=== PATIENT | male | born 1955 | race Caucasian/White ===

== ENCOUNTER 2017-07-15 17:24 | Inpatient (IN) | payer OTHER ==
[~2017-07-15] VITALS: Ht 172.7 cm; Wt 70.1 kg
[2017-07-15 17:30] VITALS: O2SAT 98
[2017-07-15 17:33] VITALS: BP 97/57; PULSE 129; RESP 22; TEMP 101.7; O2SAT 98
[2017-07-15] MEDS ORDERED: SODIUM CHLOR 0.9% 1000 ML INJ 1,000 ML IV ONE ×5 (17:35→20:21)
--- NOTE | 2017-07-15 17:51 | RADRPT ---
EXAM DATE/TIME: 07/15/2017 17:36 [facility] COMPARISON: No previous studies available for comparison. INDICATIONS : Stroke alert; trouble with speech. RADIATION DOSE: 56.35 CTDIvol (mGy) This report was called by Dr. Mccain to Dr. Garcia at 5: 47 PM on 07/15/17. MEDICAL HISTORY : None SURGICAL HISTORY : None. ENCOUNTER: Initial ACUITY: 1 day PAIN SCALE: 0/10 LOCATION: cranial TECHNIQUE: Multiple contiguous axial images were obtained of the head. Using automated exposure control and adj ustment of the mA and/or kV according to patient size, radiation dose was kept as low as reasonably a chievable to obtain optimal diagnostic quality images. DICOM format image data is available electro nically for review and comparison. FINDINGS: CEREBRUM: The ventricles are normal for age. No evidence of midline shift, mass lesion, hemorrhage or acute in farction. No extra-axial fluid collections are seen. Old lacunar infarcts are noted within the bilat eral basal ganglia. POSTERIOR FOSSA: The cerebellum and brainstem are intact. The 4th ventricle is midline. The cerebellopontine angle i s unremarkable. EXTRACRANIAL: The visualized portion of the orbits is intact. SKULL: The calvaria is intact. No evidence of skull fracture. CONCLUSION: 1. 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 2. No acute hemorrhage, acute infarct, mass effect or extra axial fluid collections. Arron Mccain MD on July 15, 2017 at 17:45 Board Certified Radiologist. This report was verified electronically.
[2017-07-15 17:57] LABS: AUTOMATED NEUTROPHIL # 13.7 TH/MM3 (1.8-7.7); BASOPHIL % 0.1 % (0.0-2.0); EOSINOPHIL # 0.1 TH/MM3 (0-0.4); EOSINOPHIL % 0.5 % (0.0-4.0); HEMATOCRIT 26.1 % (39.0-51.0); HEMO FLAGS DIFF FINAL; LYMPH % 2.3 % (9.0-44.0); LYMPHOCYTE # 0.4 TH/MM3 (1.0-4.8); MEAN CELL VOLUME 90.1 FL (80.0-100.0); MEAN CORPUSCULAR HEMOGLOBIN 28.6 PG (27.0-34.0); MEAN CORPUSCULAR HGB CONC 31.8 % (32.0-36.0); MONO % 7.1 % (0.0-8.0); PLATELET COUNT 357 TH/MM3 (150-450); RED CELL DISTRIBUTION WIDTH 18.7 % (11.6-17.2); WHITE BLOOD COUNT 15.2 TH/MM3 (4.0-11.0)
[2017-07-15] MEDS ORDERED: AMPICILLIN INJ 2,000 MG in SODIUM CHLORIDE 0.9% INJ 100 ML IV STA (18:00)
[2017-07-15] MEDS ORDERED: cefTAZidime INJ 2,000 MG in SODIUM CHLORIDE 0.9% INJ 100 ML IV STA (18:00)
[2017-07-15 18:05] LABS: I-STAT SODIUM 135 MMOL/L (138-146)
[2017-07-15 18:07] VITALS: BP 101/57; PULSE 127; RESP 20; TEMP 101.5; O2SAT 100
[2017-07-15 18:13] LABS: ANION GAP 12 MEQ/L (5-15); AST (GOT) 15 U/L (15-37); BICARBONATE 21.2 MEQ/L (21.0-32.0); BLOOD UREA NITROGEN 41 MG/DL (7-18); CHLORIDE 98 MEQ/L (98-107); GLOMERULAR FILTRATION RATE 17 ML/MIN (>89); POTASSIUM 3.9 MEQ/L (3.5-5.1); SODIUM (NA) 131 MEQ/L (136-145)
[2017-07-15 18:14] LABS: ALT (GPT) 14 U/L (12-78)
[2017-07-15 18:16] LABS: APTT (PATIENT) 33.9 SEC (24.3-30.1); INTERNATIONAL NORMALIZED RATIO 1.1 RATIO; PROTHROMBIN TIME - PATIENT 12.3 SEC (9.8-11.6)
[2017-07-15 18:18] LABS: ALKALINE PHOSPHATASE 90 U/L (45-117); CREATINE KINASE 133 U/L (39-308); TOTAL BILIRUBIN ADULT 0.6 MG/DL (0.2-1.0)
[2017-07-15] MEDS ORDERED: LORA-373 PO (18:25)
[2017-07-15] MEDS ORDERED: ETOD400T PO (18:25)
[2017-07-15] MEDS ORDERED: TAMS5CAP PO (18:25)
[2017-07-15] MEDS ORDERED: LISI10TA3 PO (18:25)
[2017-07-15] MEDS ORDERED: LOMO2.5T PO (18:25)
[2017-07-15] MEDS ORDERED: METH2.5T PO (18:25)
[2017-07-15] MEDS ORDERED: TRAM50TA PO (18:25)
[2017-07-15] MEDS ORDERED: ACETAMINOPHEN 650 MG SUPP RECTAL ONE (18:30)
[2017-07-15] MEDS ORDERED: ACYCLOVIR INJ 1,000 MG in SODIUM CHLORIDE 0.9% INJ 150 ML IV ONE (19:00)
[2017-07-15] MEDS ORDERED: VANCOMYCIN INJ 2,250 MG in SODIUM CHLORID 0.9% 500 ML INJ 500 ML IV ONE (19:00)
[2017-07-15 19:07] LABS: BACTERIA, URINE MANY /hpf; BLOOD, URINE MOD (NEG); COMMENT (UR) CULTURE INDICATED; CULTURE IF INDICATED CULTURE INDICATED; GLUCOSE,URINE NEG (NEG); KETONE, URINE NEG (NEG); MUCUS URINE FEW /lpf (OCC); NITRITE,URINE NEG (NEG); PH, URINE 5.5 (5.0-8.5); SQUAMOUS EPITHELIAL CELL URINE 3 /hpf (0-5); URINE COLOR YELLOW (YELLW/STRAW)
--- NOTE | 2017-07-15 19:31 | PD ---
HPI Chief Complaint: Altered Mental Status Time Seen by Provider: 17:34 Travel History International Travel<30 days: No Contact w/Intl Traveler<30days: No Traveled to known affect area: No History of Present Illness HPI 61-year-old man, presents emergent from with acute onset of altered mental status. Patient's mom called EMS and the patient was found sitting in the hallway, confused, unaware was going on. She states that he is visiting from out of town. He got here around noon. She states he acted a little bit tired otherwise well. She then noted that he was overtly confused about an hour or 2 later. EMS states that he is completely nonverbal for them in the truck. He had abnormal movements. No clear seizures. Patient was febrile. History Past Medical History Narrative Medical Arthritis, on methotrexate BPH, hypertension Social History Tobacco Use: No Allergies-Medications (Allergen,Severity, Reaction): Coded Allergies: No Known Allergies (Verified Allergy, Unknown, 07/15/17) Unable to Assess (Verified Allergy, Unknown, 07/15/17) Reported Meds & Prescriptions Reported Meds & Active Scripts Active Reported Lorazepam 0.5 Mg Tab 0.5 Mg PO DAILY PRN Tramadol (Tramadol HCl) 50 Mg Tab 50 Mg PO Q4H PRN Etodolac 400 Mg Tab 400 Mg PO BID PRN Take with food. Methotrexate 2.5 Mg Tab 2.5 Mg PO DAILY Lomotil (Diphenoxylate-Atropine) 2.5-0.025 Mg Tab 1 Tab PO Q6H PRN Lisinopril 10 Mg Tab 10 Mg PO DAILY Flomax (Tamsulosin HCl) 0.4 Mg Cap 0.4 Mg PO HS Review of Systems Except as stated in HPI: all other systems reviewed are Neg Physical Exam Narrative GENERAL: Ill-appearing 61-year-old man, ill-appearing. SKIN: Focused skin assessment warm/dry. HEAD: Atraumatic. Normocephalic. EYES: Pupils equal and round. No scleral icterus. No injection or drainage. ENT: No nasal bleeding or discharge. Mucous membranes pink and moist. NECK: No obvious meningismus. CARDIOVASCULAR: Rapid rate and rhythm. Soft systolic murmur. RESPIRATORY: No accessory muscle use. Clear to auscultation. Breath sounds equal bilaterally. GASTROINTESTINAL: Abdomen soft, non-tender, nondistended. Hepatic and splenic margins not palpable. MUSCULOSKELETAL: No edema. No rash. NEUROLOGICAL: Eyes open, decreased alertness, increased tone throughout. Unable to speak in complete sentences or answer questions appropriately. PSYCHIATRIC: Appropriate mood and affect; insight and judgment normal. Data Data Last Documented VS Vital Signs Date Time Temp Pulse Resp B/P (MAP) Pulse Ox O2 Delivery O2 Flow Rate FiO2 07/15/17 18:07 101.5 127 20 101/57 (72) 100 Nasal Cannula 2.00 Orders Orders Diet Npo (07/15/17 Dinner) Activity Bed Rest (07/15/17 ) Electrocardiogram (07/15/17 ) I-Stat Creatinine (07/15/17 17:35) I-Stat Profile (07/15/17 17:35) Prothrombin Time / Inr (Pt) (07/15/17 17:35) Act Partial Throm Time (Ptt) (07/15/17 17:35) Complete Blood Count With Diff (07/15/17 17:35) Fibrinogen (07/15/17 17:35) Creatine Kinase (Cpk) (07/15/17 17:35) Troponin I (07/15/17 17:35) Drug Screen, Random Urine (07/15/17 17:35) Type And Screen (07/15/17 17:35) Ct Brain W/O Iv Contrast(Rout) (07/15/17 ) Blood Glucose (07/15/17 17:35) Ecg Monitoring (07/15/17 17:35) Neuro Checks Q2HX12,Q4H (07/15/17 17:35) Nursing Bedside Swallow Assess .ONCE (07/15/17 17:35) Iv Access Insert/Monitor (07/15/17 17:35) NPO (07/15/17 17:35) Oximetry (07/15/17 17:35) Oxygen Administration (07/15/17 17:35) Sodium Chlor 0.9% 1000 Ml Inj (Ns 1000 M (07/15/17 17:35) Resp Oxygen Bo C Titrat 1-4 L (07/15/17 17:35) Cath For Specimen (07/15/17 17:35) Comprehensive Metabolic Panel (07/15/17 17:35) Lactic Acid Sepsis Protocol (07/15/17 17:35) Phosphorus (Po4) (07/15/17 17:35) Urinalysis - C+S If Indicated (07/15/17 17:35) Blood Culture (07/15/17 17:35) Sodium Chlor 0.9% 1000 Ml Inj (Ns 1000 M (07/15/17 17:45) Sodium Chlor 0.9% 1000 Ml Inj (Ns 1000 M (07/15/17 17:45) Insert Temp Sensing Crocker Cath (07/15/17 18:00) Hiv Antibody Screen (07/15/17 18:00) Vancomycin Inj (Vancomycin Inj) (07/15/17 19:00) Ampicillin Inj (Ampicillin Inj) (07/15/17 18:00) Ceftazidime Inj (Fortaz Inj) (07/15/17 18:00) Acyclovir Inj (Zovirax Inj) (07/15/17 19:00) Csf Cell Count + Differential (07/15/17 18:05) Glucose, Csf (07/15/17 18:05) Total Protein, Csf (07/15/17 18:05) Bacterial Antigen Csf (07/15/17 18:05) Csf Cryptococcus Antigen (07/15/17 18:05) Csf Culture And Gram Stain (07/15/17 18:05) Csf Afb Culture And Stain (07/15/17 18:05) Csf Fungus Culture And Stain (07/15/17 18:05) Hsv Dna Pcr (07/15/17 18:05) Acetaminophen Supp (Tylenol Supp) (07/15/17 18:30) Chest, Pa & Lat (07/15/17 ) Urine Culture (07/15/17 17:50) Labs Laboratory Tests Test 07/15/17 17:36 07/15/17 17:50 07/15/17 18:10 07/15/17 18:45 White Blood Count 15.2 TH/MM3 Red Blood Count 2.90 MIL/MM3 Hemoglobin 8.3 GM/DL Bedside Hemoglobin 9.5 G/DL Hematocrit 26.1 % Bedside Hematocrit 28.0 % Mean Corpuscular Volume 90.1 FL Mean Corpuscular Hemoglobin 28.6 PG Mean Corpuscular Hemoglobin Concent 31.8 % Red Cell Distribution Width 18.7 % Platelet Count 357 TH/MM3 Mean Platelet Volume 8.1 FL Neutrophils (%) (Auto) 90.0 % Lymphocytes (%) (Auto) 2.3 % Monocytes (%) (Auto) 7.1 % Eosinophils (%) (Auto) 0.5 % Basophils (%) (Auto) 0.1 % Neutrophils # (Auto) 13.7 TH/MM3 Lymphocytes # (Auto) 0.4 TH/MM3 Monocytes # (Auto) 1.1 TH/MM3 Eosinophils # (Auto) 0.1 TH/MM3 Basophils # (Auto) 0.0 TH/MM3 CBC Comment DIFF FINAL Differential Comment Prothrombin Time 12.3 SEC Prothromb Time International Ratio 1.1 RATIO Activated Partial Thromboplast Time 33.9 SEC Fibrinogen 849 mg/dL Bedside Sodium 135 MMOL/L Blood Urea Nitrogen 41 MG/DL Creatinine 3.73 MG/DL Random Glucose 135 MG/DL Total Protein 7.1 GM/DL Albumin 2.3 GM/DL Calcium Level 7.9 MG/DL Phosphorus Level 2.0 MG/DL Alkaline Phosphatase 90 U/L Aspartate Amino Transf (AST/SGOT) 15 U/L Alanine Aminotransferase (ALT/SGPT) 14 U/L Total Bilirubin 0.6 MG/DL Sodium Level 131 MEQ/L Potassium Level 3.9 MEQ/L Chloride Level 98 MEQ/L Carbon Dioxide Level 21.2 MEQ/L Bedside Potassium 4.0 MMOL/L Bedside Chloride 100 MMOL/L Anion Gap 12 MEQ/L Bedside Blood Urea Nitrogen 39 MG/DL Bedside Creatinine 3.9 MG/DL Estimat Glomerular Filtration Rate 17 ML/MIN Bedside Glucose 141 MG/DL Lactic Acid Level 1.6 mmol/L Total Creatine Kinase 133 U/L Troponin I LESS THAN 0.02 NG/ML Urine Color YELLOW Urine Turbidity CLOUDY Urine pH 5.5 Urine Specific [place] 1.023 Urine Protein 300 mg/dL Urine Glucose (UA) NEG mg/dL Urine Ketones NEG mg/dL Urine Occult Blood MOD Urine Nitrite NEG Urine Bilirubin NEG Urine Urobilinogen 2.0 MG/DL Urine Leukocyte Esterase LARGE Urine RBC 25 /hpf Urine WBC /hpf Urine WBC Clumps MANY Urine Squamous Epithelial Cells 3 /hpf Urine Bacteria MANY /hpf Urine Mucus FEW /lpf Microscopic Urinalysis Comment CULTURE INDICATED Urine Opiates Screen NEG Urine Barbiturates Screen NEG Urine Amphetamines Screen NEG Urine Benzodiazepines Screen NEG Urine Cocaine Screen NEG Urine Cannabinoids Screen NEG MDM Medical Decision Making Medical Screen Exam Complete: Yes Emergency Medical Condition: Yes Interpretation(s) LABS: CBC remarkable for moderate leukocytosis, hemoglobin 8.3, absolute lymphocyte count 0.4 CMP: Elevated BUN/creatinine 41/3.73, glucose 141 Lactate 1.6 Tropo urine drug screen negative hayde 0.02 CSF studies pending Differential Diagnosis Sepsis, UTI, meningitis, stroke, serotonin syndrome, other Narrative Course Medical decision making 58-year-old male with altered mental status, fever, increased muscular rigidity. Initial concern is for sepsis and infection. Patient states that he is ryder but his mother does not know. He mentions that HIV test in the past. He seems to be worried about HIV although is overtly confused. Patient will be treated for meningitis, encephalitis, LP was performed and blood cultures were sent. Patient was initially called as a stroke or days on the report of acute onset mental status changes. Stroke alert was canceled given the preponderance of evidence suggesting for an alternative etiology. Concern was also given for serotonin syndrome giving some increased muscular rigidity and tell with the confusion and fevers. We'll monitor. Critical Care Narrative Aggregate critical care time was 45 minutes. Time to perform other separately billable procedures was not included in the critical care time. My time did not include minutes spent treating any other patients simultaneously or on activities that did not directly contribute to the patient's treatment. The services I provided to this patient were to treat and/or prevent clinically significant deterioration that could result in: , disability, worsening mental status, unrecognized infection, other I provided critical care services requiring my management, as noted below: Chart data review, documentation time, medication orders and management, vital sign assessments/reviewing monitor data, ordering and reviewing lab tests, ordering and interpreting/reviewing x-rays and diagnostic studies, care of the patient and discussion of the patient with the admitting physicians. Procedures Procedure Narrative LUMBAR PUNCTURE: The patient was placed in the left lateral decubitus position. The lumbar area of the back was prepped with Betadine and sterilely draped. The L3 -- L4 interspace was infiltrated with 1% lidocaine plain. Number 20 gauge LP needle was placed in the interspace. Opening pressure was 29. Number 12 milliliters of clear CSF were obtained. Patient tolerated procedure well. Diagnosis Primary Impression: Severe sepsis Additional Impressions: UTI (urinary tract infection) Confusion Admitting Information Admitting Physician Requests: Admit Rolf Garcia MD Jul 15, 2017 19:31
--- NOTE | 2017-07-15 19:55 | RADRPT ---
EXAM DATE/TIME: 07/15/2017 19:34 [facility] COMPARISON: No previous studies available for comparison. INDICATIONS : Shortness of breath and fever. Stroke alert; trouble with speech. MEDICAL HISTORY : None. SURGICAL HISTORY : None. ENCOUNTER: Initial ACUITY: 1 day PAIN SCORE: 0/10 LOCATION: Bilateral chest FINDINGS: PA and lateral views of the chest demonstrate the lungs to be symmetrically aerated without evidence of mass, infiltrate or effusion. The cardiomediastinal contours are unremarkable. Osseous structure s are intact. CONCLUSION: No acute disease. Arron Mccain MD on July 15, 2017 at 19:53 Board Certified Radiologist. This report was verified electronically.
[2017-07-15 20:00] VITALS: BP 98/65; PULSE 108; RESP 16; TEMP 99.7; O2SAT 100
[2017-07-15] MEDS ORDERED: LORazepam 0.5 MG TAB PO PRN (20:15)
[2017-07-15] MEDS ORDERED: CHLORHEXIDINE GLUCONATE 2 % 1 PACK (2 CLOTHS) TOP PRN (20:15)
[2017-07-15] MEDS ORDERED: LACTULOSE SYRUP 20 GM/30 ML CUP PO PRN (20:15)
[2017-07-15] MEDS ORDERED: MAGNESIUM HYDROXIDE SUSP 30 ML CUP PO PRN (20:15)
[2017-07-15] MEDS ORDERED: RESP: ALBUTEROL 2.5 MG/IPRATROPIUM 0.5 MG NEB (PRN) INH (20:15)
[2017-07-15] MEDS ORDERED: SENNOSIDES 8.6 MG TAB PO PRN (20:15)
[2017-07-15] MEDS ORDERED: BISACODYL 10 MG SUPP RECTAL PRN (20:15)
[2017-07-15] MEDS ORDERED: MISCELLANEOUS NURSING INFORMATION XX SCH (20:15)
[2017-07-15] MEDS ORDERED: SODIUM CHLORIDE 0.9% FLUSH 10 ML FLUSH PRN (20:15)
[2017-07-15] MEDS ORDERED: SODIUM CHLOR 0.9% 1000 ML INJ 100 ML IV ONE (20:21)
[2017-07-15] MEDS ORDERED: Vancomycin Consult Pharmacy 1 EA OTHER SCH (20:30)
[2017-07-15] MEDS ORDERED: DEXAMETHASONE SOD PHOS 20 MG/5 ML VIAL IV SCH (20:30)
[2017-07-15 20:40] LABS: GROSS BLOOD TUBE #1 0 (0); GROSS BLOOD TUBE #2 0 (0); SUPERNATE COLOR TUBE #1 CLEAR (CLEAR); SUPERNATE COLOR TUBE #2 CLEAR (CLEAR)
[2017-07-15 20:41] LABS: CSF LYMPHOCYTES 0 %; CSF NEUTROPHILS 0 %; GROSS BLOOD TUBE #3 0 (0); SUPERNATE COLOR TUBE #3 CLEAR (CLEAR); SUPERNATE COLOR TUBE #4 CLEAR (CLEAR); WBC TUBE #4 0 /MM3 (0-10)
[2017-07-15] MEDS: SODIUM CHLOR 0.9% 1000 ML INJ 1,000 ML IV SCH (20:50)
[2017-07-15 21:00] VITALS: BP 102/60; PULSE 98; RESP 16; TEMP 98.2; O2SAT 100
[2017-07-15] MEDS: TAMSULOSIN HCL 0.4 MG CAP PO SCH (21:00)
[2017-07-15] MEDS: SODIUM CHLORIDE 0.9% FLUSH 10 ML FLUSH SCH (21:00)
[2017-07-15] MEDS: HEPARIN SODIUM - SQ 10,000 UNITS/ML VIAL SQ SCH (21:01)
[2017-07-15] MEDS ORDERED: VANCOMYCIN INJ 1,250 MG in SODIUM CHLOR 0.9% 250 ML INJ 250 ML IV ONE (21:30)
[2017-07-15] MEDS: AMPICILLIN INJ 2,000 MG in SODIUM CHLORIDE 0.9% INJ 100 ML IV SCH (22:07)
[2017-07-15] MEDS: FAMOTIDINE 20 MG/2 ML VIAL IV PUSH SCH (22:07)
[2017-07-15] MEDS: DOCUSATE SODIUM 50 MG/SENNA 8.6 MG TAB PO SCH (22:07)
--- NOTE | 2017-07-15 22:09 | HHI.HP ---
HPI Service Critical Care Medicine Primary Care Physician Unknown Admission Diagnosis Severe Sepsis, confusion, UTI, r/o meningitis Diagnosis: Travel History International Travel<30 Days: No Contact w/Intl Traveler <30 Da: No Traveled to Known Affected Are: No History of Present Illness 61-year-old gentleman presents for altered mental status. Patient's mom called EMS and the patient was found sitting in the hallway, confused, unaware what was going on. She states that he is visiting from out of town. He got here around noon. She states he acted a little bit tired otherwise well. She then noted that he was overtly confused about an hour or 2 later. EMS states that he is completely nonverbal for them in the truck. He had abnormal movements. No clear seizures. Patient was febrile. Past Family Social History Allergies: Coded Allergies: No Known Allergies (Verified Allergy, Unknown, 07/15/17) Unable to Assess (Verified Allergy, Unknown, 07/15/17) Past Medical History Arthritis - on methotrexate BPH Hypertension Past Surgical History None Reported Medications Reported Meds & Active Scripts Active Reported Lorazepam 0.5 Mg Tab 0.5 Mg PO DAILY PRN Tramadol (Tramadol HCl) 50 Mg Tab 50 Mg PO Q4H PRN Etodolac 400 Mg Tab 400 Mg PO BID PRN Take with food. Methotrexate 2.5 Mg Tab 2.5 Mg PO DAILY Lomotil (Diphenoxylate-Atropine) 2.5-0.025 Mg Tab 1 Tab PO Q6H PRN Lisinopril 10 Mg Tab 10 Mg PO DAILY Flomax (Tamsulosin HCl) 0.4 Mg Cap 0.4 Mg PO HS Active Ordered Medications Current Medications Medications (Trade) Dose Ordered Sig/Víctor Route PRN Reason Start Time Stop Time Status Last Admin Dose Admin Sodium Chloride 1,000 ml @ 70 mls/hr [id number] ONCE IV 07/15/17 17:35 07/16/17 07:52 07/15/17 19:55 Lorazepam (Ativan) 0.5 mg DAILY PRN PO ANXIETY 07/15/17 20:15 Tamsulosin HCl (Flomax) 0.4 mg HS PO 07/15/17 21:00 Sodium Chloride 1,000 ml @ 124 mls/hr Q8H4M IV 07/15/17 20:14 07/15/17 20:50 Sodium Chloride (NS Flush) 2 ml UNSCH PRN .XX FLUSH AFTER USING IV ACCESS 07/15/17 20:15 Sodium Chloride (NS Flush) 2 ml BID .XX 07/15/17 21:00 Acetaminophen (Tylenol) 650 mg Q6H PRN PO PAIN 1-10 AND/OR FEVER >101F 07/15/17 20:15 Famotidine (Pepcid Inj) 20 mg Q12HR IV PUSH 07/15/17 21:00 Ondansetron HCl (Zofran Inj) 4 mg Q6H PRN IV NAUSEA OR VOMITING 07/15/17 20:15 Zolpidem Tartrate (Ambien) 5 mg HS PRN PO INSOMNIA 07/15/17 20:15 Albuterol/ Ipratropium (Duoneb Neb) 1 ampule Q2HR NEB PRN INH WHEEZING 07/15/17 20:15 Heparin Sodium (Porcine) (Heparin Inj) 5,000 units Q12H SQ 07/15/17 20:15 07/15/17 21:01 Miscellaneous Information 1 [id number] XX 07/15/17 20:15 Chlorhexidine Gluconate (Chlorhexidine 2% Cloth) 3 pack Taper DAILY@04 TOP 07/16/17 04:00 07/12/18 03:59 Chlorhexidine Gluconate (Chlorhexidine 2% Cloth) 3 pack UNSCH PRN TOP HYGIENIC CARE 07/15/17 20:15 Senna/Docusate Sodium (Annetta-Colace) 1 tab BID PO 07/15/17 21:00 Magnesium Hydroxide (Milk Of Magnesia Liq) 30 ml Q12H PRN PO MILD - MODERATE CONSTIPATION 07/15/17 20:15 Sennosides (Senokot) 17.2 mg Q12H PRN PO MODERATE - SEVERE CONSTIPATION 07/15/17 20:15 Bisacodyl (Dulcolax Supp) 10 mg DAILY PRN RECTAL SEVERE CONSITIPATION 07/15/17 20:15 Lactulose (Lactulose Liq) 30 ml DAILY PRN PO SEVERE CONSITIPATION 07/15/17 20:15 Dexamethasone Sodium Phosphate (Decadron Inj) 4 mg Q6H IV 07/15/17 20:30 07/19/17 14:31 07/15/17 21:01 Pharmacy Profile Note 0 ml @ 0 mls/hr UNSCH OTHER 07/15/17 20:30 Ampicillin Sodium 2000 mg/Sodium Chloride 100 ml @ 300 mls/hr Q4H IV 07/15/17 21:00 Ceftazidime 2000 mg/Sodium Chloride 100 ml @ 200 mls/hr Q12H IV 07/16/17 08:00 Family History No family history of coronary artery disease or malignancy Social History No history of tobacco alcohol or illicit drug abuse Physical Exam Vital Signs Vital Signs Date Time Temp Pulse Resp B/P (MAP) Pulse Ox O2 Delivery O2 Flow Rate FiO2 07/15/17 21:00 98.2 98 16 102/60 (74) 100 Nasal Cannula 2.00 07/15/17 20:00 99.7 108 16 98/65 (76) 100 Nasal Cannula 2.00 07/15/17 18:07 101.5 127 20 101/57 (72) 100 Nasal Cannula 2.00 07/15/17 17:33 101.7 129 22 97/57 (70) 98 Nasal Cannula 2.00 07/15/17 17:30 98 Nasal Cannula 2.00 07/15/17 17:30 98 2.00 Physical Exam GENERAL: Well-nourished, well-developed patient, confused and disoriented. SKIN: Warm and dry. HEAD: Normocephalic. EYES: No scleral icterus. No injection or drainage. NECK: Supple, trachea midline. No JVD or lymphadenopathy. CARDIOVASCULAR: Regular rate and rhythm without murmurs, gallops, or rubs. RESPIRATORY: Breath sounds equal bilaterally. No accessory muscle use. GASTROINTESTINAL: Abdomen soft, non-tender, nondistended. MUSCULOSKELETAL: No cyanosis, or edema. BACK: Nontender without obvious deformity. NEURO EXAM: GCS: M6 V4 E4 Mental Status: The patient is alert but confused and disoriented Cranial Nerves: Pupils are round, reactive to light. Reflexes: Biceps, patellar, and Achilles are 2/4 bilaterally. No clonus. Motor: Good muscle tone. Strength is 5/5 bilaterally. Laboratory Laboratory Tests Test 07/15/17 17:36 07/15/17 17:50 07/15/17 18:10 07/15/17 18:45 White Blood Count 15.2 Red Blood Count 2.90 Hemoglobin 8.3 Bedside Hemoglobin 9.5 Hematocrit 26.1 Bedside Hematocrit 28.0 Mean Corpuscular Volume 90.1 Mean Corpuscular Hemoglobin 28.6 Mean Corpuscular Hemoglobin Concent 31.8 Red Cell Distribution Width 18.7 Platelet Count 357 Mean Platelet Volume 8.1 Neutrophils (%) (Auto) 90.0 Lymphocytes (%) (Auto) 2.3 Monocytes (%) (Auto) 7.1 Eosinophils (%) (Auto) 0.5 Basophils (%) (Auto) 0.1 Neutrophils # (Auto) 13.7 Lymphocytes # (Auto) 0.4 Monocytes # (Auto) 1.1 Eosinophils # (Auto) 0.1 Basophils # (Auto) 0.0 CBC Comment DIFF FINAL Differential Comment Prothrombin Time 12.3 Prothromb Time International Ratio 1.1 Activated Partial Thromboplast Time 33.9 Fibrinogen 849 Bedside Sodium 135 Blood Urea Nitrogen 41 Creatinine 3.73 Random Glucose 135 Total Protein 7.1 Albumin 2.3 Calcium Level 7.9 Phosphorus Level 2.0 Alkaline Phosphatase 90 Aspartate Amino Transf (AST/SGOT) 15 Alanine Aminotransferase (ALT/SGPT) 14 Total Bilirubin 0.6 Sodium Level 131 Potassium Level 3.9 Chloride Level 98 Carbon Dioxide Level 21.2 Bedside Potassium 4.0 Bedside Chloride 100 Anion Gap 12 Bedside Blood Urea Nitrogen 39 Bedside Creatinine 3.9 Estimat Glomerular Filtration Rate 17 Bedside Glucose 141 Lactic Acid Level 1.6 Total Creatine Kinase 133 Troponin I LESS THAN 0.02 Urine Color YELLOW Urine Turbidity CLOUDY Urine pH 5.5 Urine Specific [place] 1.023 Urine Protein 300 Urine Glucose (UA) NEG Urine Ketones NEG Urine Occult Blood MOD Urine Nitrite NEG Urine Bilirubin NEG Urine Urobilinogen 2.0 Urine Leukocyte Esterase LARGE Urine RBC 25 Urine WBC Urine WBC Clumps MANY Urine Squamous Epithelial Cells 3 Urine Bacteria MANY Urine Mucus FEW Microscopic Urinalysis Comment CULTURE INDICATED Urine Opiates Screen NEG Urine Barbiturates Screen NEG Urine Amphetamines Screen NEG Urine Benzodiazepines Screen NEG Urine Cocaine Screen NEG Urine Cannabinoids Screen NEG CSF Volume (Tube 1) 3.0 CSF Supernatant Color (tube 1) CLEAR CSF Gross Blood (Tube 1) 0 CSF Volume (Tube 2) 4.0 CSF Supernatant Color (tube 2) CLEAR CSF Gross Blood (Tube 2) 0 CSF Volume (Tube 3) 3.0 CSF Supernatant Color (tube 3) CLEAR CSF Gross Blood (Tube 3) 0 CSF Volume (Tube 4) 1.0 CSF Supernatant Color (tube 4) CLEAR CSF WBC (Tube 4) 0 CSF RBC (Tube 4) 1 CSF Neutrophils 0 CSF Lymphocytes 0 CSF Glucose 77 CSF Total Protein 48.3 Date/Time Source Procedure Growth Status 07/15/17 21:20 Blood Arterial Line Aerobic Blood Culture Pending Received 07/15/17 21:20 Blood Arterial Line Anaerobic Blood Culture Pending Received 07/15/17 18:45 Cerebral Spinal Fluid Lumbar Puncture Fungal Smear Pending Received 07/15/17 18:45 Cerebral Spinal Fluid Lumbar Puncture Fungal Culture Pending Received 07/15/17 17:50 Urine Clean Catch Urine Culture Pending Received Result Diagram: 07/15/17 1736 07/15/17 1736 Imaging Last [address] 07/15/17 0000 Signed Impressions: Service Date/Time: Saturday, July 15, 2017 17:36 - CONCLUSION: 1. 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 2. No acute hemorrhage, acute infarct, mass effect or extra axial fluid collections. Arron Mccain MD Chest X-Ray 07/15/17 0000 Signed Impressions: Service Date/Time: Saturday, July 15, 2017 19:34 - CONCLUSION: No acute disease. Arron Mccain MD Caprini VTE Risk Assessment Caprini VTE Risk Assessment: Mod/High Risk (score >= 2) Caprini Risk Assessment Model Point Value = 1 Point Value = 2 Point Value = 3 Point Value = 5 Age 41-60 Minor surgery BMI > 25 kg/m2 Swollen legs Varicose veins or History of unexplained or recurrent spontaneous Oral contraceptives or hormone replacement Sepsis (< 1 month) Serious lung disease, including pneumonia (< 1 month) Abnormal pulmonary function Acute myocardial infarction Congestive heart failure (< 1 month) History of inflammatory bowel disease Medical patient at bed rest Age 61-74 Arthroscopic surgery Major open surgery (> 45 min) Laparoscopic surgery (> 45 min) Malignancy Confined to bed (> 72 hours) Immobilizing plaster cast Central venous access Age >= 75 History of VTE Family history of VTE Factor V Leiden Prothrombin [id number] Lupus anticoagulant Anticardiolipin antibodies Elevated serum homocysteine Heparin-induced thrombocytopenia Other congenital or acquired thrombophilia Stroke (< 1 month) Elective arthroplasty Hip, pelvis, or leg fracture Acute spinal cord injury (< 1 month) Prophylaxis Regimen Total Risk Factor Score Risk Level Prophylaxis Regimen 0-1 Low Early ambulation 2 Moderate Order ONE of the following: *Sequential Compression Device (SCD) *Heparin 5000 units SQ BID 3-4 Higher Order ONE of the following medications: *Heparin 5000 units SQ TID *Enoxaparin/Lovenox 40 mg SQ daily (WT < 150 kg, CrCl > 30 mL/min) *Enoxaparin/Lovenox 30 mg SQ daily (WT < 150 kg, CrCl > 10-29 mL/min) *Enoxaparin/Lovenox 30 mg SQ BID (WT < 150 kg, CrCl > 30 mL/min) AND/OR *Sequential Compression Device (SCD) 5 or more Highest Order ONE of the following medications: *Heparin 5000 units SQ TID (Preferred with Epidurals) *Enoxaparin/Lovenox 40 mg SQ daily (WT < 150 kg, CrCl > 30 mL/min) *Enoxaparin/Lovenox 30 mg SQ daily (WT < 150 kg, CrCl > 10-29 mL/min) *Enoxaparin/Lovenox 30 mg SQ BID (WT < 150 kg, CrCl > 30 mL/min) AND *Sequential Compression Device (SCD) Assessment and Plan Assessment and Plan Altered mental status - SIRS - UTI - CT head negative - LP negative - Follow-up cultures Arthritis - Hold NSAIDs and methotrexate due to SIRS and acute kidney injury - Resume when above results Acute kidney injury - IV fluid hydration - Avoid nephrotoxin - Monitor creatinine and urine output Hypertension - Hold lisinopril due to acute kidney injury - Hydralazine when necessary to keep SBP less than 160 BPH - Flomax DVT GI prophylaxis - Teds SCDs subcutaneous heparin and Pepcid - Early aggressive mobilization Critical Care: The total critical care time was 35 minutes. Time to perform other separately billable procedures was not included in the critical care time. Parag Lorenzo MD Jul 15, 2017 10:09 pm
--- NOTE | 2017-07-15 22:17 | EKG ---
Date Performed: 07/15/2017 Time Performed: 18:23:54 PTAGE: 61 years EKG: SINUS TACHYCARDIA NONSPECIFIC ST & T-WAVE ABNORMALITY ABNORMAL RHYTHM ECG NO PREVIOUS TRACING DOCTOR: Leander Hoyt Interpretating Date/Time 07/15/2017 22:16:08
[2017-07-15 23:00] VITALS: PULSE 92
[2017-07-16] VITALS (14 sets, daily range): BP systolic 94–143; BP diastolic 62–82; PULSE 61–97; RESP 14–21; TEMP 97.6–98.8; O2SAT 95–100
[2017-07-16] MEDS: AMPICILLIN INJ 2,000 MG in SODIUM CHLORIDE 0.9% INJ 100 ML IV SCH ×4 (01:38→12:43)
[2017-07-16] MEDS: CHLORHEXIDINE GLUCONATE 2 % 1 PACK (2 CLOTHS) TOP SCH ×2 (04:17→23:08)
[2017-07-16] MEDS: SODIUM CHLOR 0.9% 1000 ML INJ 1,000 ML IV SCH ×3 (04:24→20:26)
[2017-07-16 06:14] LABS: EOSINOPHIL % 0.1 % (0.0-4.0); HEMATOCRIT 21.7 % (39.0-51.0); HEMO FLAGS DIFF FINAL; LYMPH % 2.5 % (9.0-44.0); LYMPHOCYTE # 0.3 TH/MM3 (1.0-4.8); MEAN CELL VOLUME 91.1 FL (80.0-100.0); MEAN CORPUSCULAR HEMOGLOBIN 29.2 PG (27.0-34.0); MEAN CORPUSCULAR HGB CONC 32.1 % (32.0-36.0); MONO % 1.6 % (0.0-8.0); NEUT % 95.8 % (16.0-70.0); PLATELET COUNT 276 TH/MM3 (150-450); RED BLOOD COUNT 2.38 MIL/MM3 (4.50-5.90); RED CELL DISTRIBUTION WIDTH 18.6 % (11.6-17.2); WHITE BLOOD COUNT 12.6 TH/MM3 (4.0-11.0)
[2017-07-16 07:12] LABS: BICARBONATE 19.8 MEQ/L (21.0-32.0); CALCIUM-PROTEIN CORRECTED 7.8 MG/DL (8.5-10.1); MAGNESIUM 2.1 MG/DL (1.5-2.5); POTASSIUM 4.3 MEQ/L (3.5-5.1); TOTAL BILIRUBIN ADULT 0.4 MG/DL (0.2-1.0)
[2017-07-16] MEDS ORDERED: cefTAZidime INJ 2,000 MG in SODIUM CHLORIDE 0.9% INJ 100 ML IV SCH (08:00)
[2017-07-16] MEDS: FAMOTIDINE 20 MG/2 ML VIAL IV PUSH SCH (08:02)
[2017-07-16] MEDS: SODIUM CHLORIDE 0.9% FLUSH 10 ML FLUSH SCH ×2 (08:03→21:19)
[2017-07-16] MEDS: HEPARIN SODIUM - SQ 10,000 UNITS/ML VIAL SQ SCH ×2 (08:03→21:21)
[2017-07-16] MEDS: DOCUSATE SODIUM 50 MG/SENNA 8.6 MG TAB PO SCH ×2 (08:03→21:21)
[2017-07-16] MEDS ORDERED: diphenhydrAMINE HCL 25 MG CAP PO PRN (10:15)
[2017-07-16] MEDS ORDERED: ACETAMINOPHEN 325 MG TAB PO PRN (10:15)
[2017-07-16] MEDS ORDERED: SODIUM CHLOR 0.9% 250 ML INJ 250 ML IV ONE (10:15)
--- NOTE | 2017-07-16 11:02 | HHI.CCPN ---
Subjective Remarks/Hospital Course 07/15: 61-year-old gentleman presents for altered mental status. Patient's mom called EMS and the patient was found sitting in the hallway, confused, unaware what was going on. She states that he is visiting from out of town. He got here around noon. She states he acted a little bit tired otherwise well. She then noted that he was overtly confused about an hour or 2 later. EMS states that he is completely nonverbal for them in the truck. He had abnormal movements. No clear seizures. Patient was febrile. 07/16: Awake and alert this morning. Tells me that he has had UTIs before as well as has had kidney stones in the 70s. He has had problems with frequency of urination and has seen a urologist last visit being 3 years ago. Per patient his last episode of UTI was 18 months ago however he required 2 rounds of antibiotics by his primary care physician who he says is also ID. 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 Objective Vital Signs Date Time Temp Pulse Resp B/P (MAP) Pulse Ox O2 Delivery O2 Flow Rate FiO2 07/16/17 08:05 95 21 07/16/17 06:00 78 07/16/17 04:00 97.6 20 121/64 (83) 07/16/17 00:00 Room Air 07/15/17 21:00 2.00 Intake and Output 07/16/17 07/16/17 07/16/17 07:59 15:59 23:59 Intake Total 2450 ml Output Total 1000 ml Balance 1450 ml Result Diagram: 07/16/17 0524 07/16/17 0524 Imaging Last [address] 07/15/17 0000 Signed Impressions: Service Date/Time: Saturday, July 15, 2017 17:36 - CONCLUSION: 1. 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 2. No acute hemorrhage, acute infarct, mass effect or extra axial fluid collections. Arron Mccain MD Chest X-Ray 07/15/17 0000 Signed Impressions: Service Date/Time: Saturday, July 15, 2017 19:34 - CONCLUSION: No acute disease. Arron Mccain MD Objective Remarks GENERAL: Well-nourished, well-developed patient, confused and disoriented. SKIN: Warm and dry. HEAD: Normocephalic. EYES: No scleral icterus. No injection or drainage. NECK: Supple, trachea midline. No JVD or lymphadenopathy. CARDIOVASCULAR: Regular rate and rhythm without murmurs, gallops, or rubs. RESPIRATORY: Breath sounds equal bilaterally. No accessory muscle use. GASTROINTESTINAL: Abdomen soft, non-tender, nondistended. MUSCULOSKELETAL: No cyanosis, or edema. BACK: Nontender without obvious deformity. NEURO EXAM: GCS: M6 V4 E4 Mental Status: The patient is alert but confused and disoriented Cranial Nerves: Pupils are round, reactive to light. Reflexes: Biceps, patellar, and Achilles are 2/4 bilaterally. No clonus. Motor: Good muscle tone. Strength is 5/5 bilaterally. A/P Assessment and Plan Altered mental status -Severe sepsis - UTI - CT head negative - LP negative - Follow-up cultures. I was informed by patient's RN that blood culture positive for gram-negative rods per micro. - ID consult requested. -On ampicillin/ceftazidime. We'll discuss with ID regarding changing antibiotic regimen as this does not appear to be bacterial meningitis. Arthritis - Hold NSAIDs and methotrexate due to SIRS and acute kidney injury - Resume when above results Acute kidney injury - IV fluid hydration - Avoid nephrotoxin - Monitor creatinine and urine output - Follow-up renal ultrasound Hypertension - Hold lisinopril due to acute kidney injury - Hydralazine when necessary to keep SBP less than 160 BPH - Flomax DVT GI prophylaxis - Teds SCDs subcutaneous heparin and Pepcid - Early aggressive mobilization Anemia-normocytic normochromic Check LDH, iron studies, stool for occult blood, reticulocyte count, SILVA, ESR. Hematology consult requested for further evaluation. Patient denies any rectal bleeding or hematuria. 1 unit PRBCs to be transfused now. Will consult and transfer to hospitalist service if he remains hemodynamically stable. Merritt Bruno MD Jul 16, 2017 11:02
[2017-07-16 13:58] LABS: RETIC % 0.9 % (0.4-3.0); REVIEW FLAG FINAL
--- NOTE | 2017-07-16 14:01 | MB ---
cc: BETTIE ESCUDERO DATE OF CONSULTATION: 07/16/2017. REASON FOR CONSULTATION: 61-year-old male admitted to the hospital with sepsis and found to be anemic. PATIENT PROFILE: The patient is a 61-year-old white male. He is not a good historian. He is searching for words and his recollection of recent events is poor. He knows that his memory is not normal. The patient is single. He was never . He has no children. He is homosexual. 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 He is visiting this area helping his mom move from the [facility] to [place] where she will live with him. He does not smoke. There ihas been minimal alcohol intake in the past. He was born in [facility] and has lived in [place] since 1968. HISTORY OF PRESENT ILLNESS: It hard to find the beginning of his problem. He is 61 years old and stated that in March and April he developed an intestinal flu lasting for about four to six weeks. He had diarrhea. Stools were sometimes yellow, green, brown and black but this resolved. He then came to this area to visit his mother. He became sick but he cannot describe in what manner he became sick. His mother insisted that he go to the emergency room when he was found to be confused and unaware of events. When he arrived, he was completely nonverbal. There were no seizures. He underwent a number of studies. On 07/15/2017, hemoglobin 8.3, white count 15,000 and platelet count of 357,000. The differential was unremarkable. The following day, 07/16, hemoglobin 7, white count 12,600 and platelets 276,000, again with an unremarkable differential. He was found to be in renal failure with a BUN of 41, creatinine 3.7. Liver function tests are normal. On arrival, he had an elevated temperature of 101.7. Blood cultures are currently growing out gram-negative rods and he is on antibiotics. PAST MEDICAL HISTORY: His medical history includes: 1. Rheumatoid arthritis. It is not clear when a diagnosis was established. He tells me that he takes methotrexate 9 tablets once a week and has been doing this for approximately three years. 2. He indicates that he has had severe depression and may lose his job. 3. He has had genital herpes. 4. He has had problems with recurrent sinus infections. 5. He has had problems with urination and has nocturia 3 to 4 times. 6. He tells me that he had a testicle removed approximately six years ago. The testicle was injured from injections of silicone which were placed in the scrotal sac with my understanding being that the silicone was put in to enlarge the scrotal sac for cosmetic reasons but then he is still not clear about this. 7. He denies any anthony blood per rectum but he did have black stools in March or April when he had the intestinal problem. He is unaware of ever having anemia before but when I asked him about the physicians he has seen, he is very unclear about who he saw and when he saw them. Additional studies on arrival included: Chest x-ray on 07/15/2017 showing no acute cardiopulmonary disease. 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 PAST SURGICAL HISTORY: 1. Deviated septum repair. 2. Injury to the left shoulder with tearing of tendons when he moved a washing machine requiring repair. 3. Approximately six years ago removal of left testicle which was injured from injections of silicone into the scrotal sac. 4. He has had operations on the feet to remove what sounds like bone spurs. PAST MEDICAL HISTORY: 1. Rheumatoid arthritis for which he takes methotrexate 2.5 milligrams nine tablets once a week. 2. Osteoarthritis. 3. Depression. 4. Sinus infections. 5. Genital herpes. MEDICATIONS PRIOR TO ADMISSION: 1. Lomotil. 2. Etodolac 400 milligrams p.o. twice a day PRN. 3. Lisinopril 10 milligrams a day. 4. Lorazepam PRN. 5. Methotrexate 2.5 milligrams nine tablets once a week. 6. Flomax. ALLERGIES: None. FAMILY HISTORY: Noncontributory. REVIEW OF SYSTEMS: VISION: He has glasses. HEARING: Fine. CARDIOVASCULAR: He denies chest pain or palpitations. RESPIRATORY: He denies shortness of breath. GASTROINTESTINAL: Approximately four or five weeks of an intestinal problem with diarrhea, loose stools of all different colors. GENITOURINARY: Poor stream. Nocturia. MUSCULOSKELETAL: Pain in hands, lower back. NEUROLOGIC: Notable for difficulty expressing himself and deteriorating memory. PSYCHIATRIC: Depression. PHYSICAL EXAMINATION: GENERAL: The physical examination reveals a gentleman who does not appear acutely ill but when he sits up and begins to talk, he can barely finish a sentence. He searches for words and his thought process is tangential. VITAL SIGNS: Blood pressure is 100/60, respiratory rate is 18, pulse 80 afebrile, 02 saturation 95%. HEAD, EYES, EARS, NOSE, THROAT: Head is normocephalic. The sclerae and conjunctivae are normal. Oropharynx unremarkable. LYMPHATIC: No adenopathy. HEART: Regular rhythm. LUNGS: Clear. ABDOMEN: Abdomen soft. No hepatosplenomegaly. EXTREMITIES: Trace edema. MUSCULOSKELETAL: No bone pain. NEUROLOGIC: No focal weakness although he does have some limited movement of the thumb of both hands. Speech is halting. SKIN: The patient has swelling of the scrotal sac. ASSESSMENT: The patient is a 61-year-old male who presents with a normochromic normocytic anemia. He has sepsis. He gives a history of rheumatoid arthritis and takes methotrexate, which can contribute to anemia. One would anticipate that he would have an elevated MCV, and he does not. Methotrexate causes an elevation in the MCV if it is taken with regularity. He may have had GI bleeding in March and April when he had an "intestinal upset". RECOMMENDATIONS: 1. Routine studies to include iron studies, B12, folic acid, LDH and reticulocyte count. 2. When his creatinine has recovered, I would like to do a CT scan of the abdomen and pelvis as I am surprised to see the sepsis. I would like to make sure that there is no intra-abdominal process. 3. Neurology consult as he has overwhelming problems with memory and expressing himself. 4. Urology consult because of the likelihood that the infection arises from the urinary tract and the fact that the scrotum is abnormal from previous injections of silicone. 5. It will be important to obtain previous records. He tells me that he saw Dr. 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 I would like to reach her and see what information she has concerning his previous blood work and the diagnosis of rheumatoid arthritis. 6. heme-test stools. MD JASMINE Lemons/ERIKA /12:01 PM /1:38 PM ORALIA
[2017-07-16 14:20] LABS: RHEUMATOID FACTOR TRIGGER LESS THAN 10.0 IU/ML (0.0-14.9)
[2017-07-16 14:25] LABS: LDH SERUM 172 U/L (87-241); TRANSFERRIN IRON PROFILE 109 MG/DL (200-360)
[2017-07-16 14:50] LABS: FERRITIN 2281 NG/ML (26-388); WESTERGREN SEDIMENTATION RATE GREATER THAN 140 mm/hr (0-20)
--- NOTE | 2017-07-16 15:05 | HHI.PR ---
Subjective Remarks f/u for infection and AMS when patient was seen he was talking to his friend and would not address me. I waited then his friend said hi to me. I told him and his friend and introduced myself. Patient continued to ignore me and kept talking to his friend about his mom being upset with me. I interrupted politely and stated that I need to interview him to see how he was doing. He had no complaints. Then ignored me again to talk to his friend. Then I try to exam the patient and listen to his lungs and asked him to take deep breaths and he did not follow directions and continued to talk to his friend. I told patient if he does not want to talk to me and cooperate with examination then I cannot help him. He continued to ignore me. His friend left with me and asked me to stay in. She stated "good luck. He is like that to people." I d/w patient's nurse in regards to what happened. he stated he did not have that problem. per nurse no concerns. Patient is doing well. Objective Vitals Vital Signs Date Time Temp Pulse Resp B/P (MAP) Pulse Ox O2 Delivery O2 Flow Rate FiO2 07/16/17 14:00 89 07/16/17 12:00 88 07/16/17 12:00 97.8 88 14 119/66 (83) 97 07/16/17 10:00 93 07/16/17 08:05 95 21 07/16/17 08:00 76 07/16/17 08:00 97.7 76 20 94/63 (73) 96 07/16/17 07:00 97 Room Air 07/16/17 06:00 78 07/16/17 04:00 97 07/16/17 04:00 97.6 97 20 121/64 (83) 96 07/16/17 02:00 85 07/16/17 00:00 97 Room Air 07/16/17 00:00 95 07/16/17 00:00 98.1 95 16 106/71 (83) 97 07/15/17 23:00 92 07/15/17 21:00 98.2 98 16 102/60 (74) 100 Nasal Cannula 2.00 07/15/17 20:00 99.7 108 16 98/65 (76) 100 Nasal Cannula 2.00 07/15/17 18:07 101.5 127 20 101/57 (72) 100 Nasal Cannula 2.00 07/15/17 17:33 101.7 129 22 97/57 (70) 98 Nasal Cannula 2.00 07/15/17 17:30 98 Nasal Cannula 2.00 07/15/17 17:30 98 2.00 I/O 07/15/17 07/15/17 07/15/17 07/16/17 07/16/17 07/16/17 07:00 15:00 23:00 07:00 15:00 23:00 Intake Total 7973.5 ml 2450 ml Output Total 375 ml 1000 ml Balance 7598.5 ml 1450 ml Intake Oral 720 ml IV Total 7973.5 ml 1730 ml Output Urine Total 375 ml 1000 ml # Bowel Movements 0 Result Diagram: 07/16/1752307/16/17523 Objective Remarks GENERAL: in NAD sitting in bed talking to friend. CARDIOVASCULAR: Regular rate and rhythm without murmurs, gallops, or rubs. RESPIRATORY: Breath sounds equal bilaterally. No accessory muscle use. NEURO; patient is talking appropriate. Medications and IVs Current Medications Sodium Chloride 1,000 ml @ 70 mls/hr [id number] ONCE IV Last administered on 07/15 19:55; Start 07/15/17 at 17:35; Stop 07/16/17 at 07:52; Status DC Sodium Chloride 1,000 ml @ 2,000 mls/hr Q30M ONCE IV Last administered on 07/15 18:54; Start 07/15/17 at 17:45; Stop 07/15/17 at 18:14; Status DC Sodium Chloride 1,000 ml @ 2,000 mls/hr Q30M ONCE IV Last administered on 07/15 18:53; Start 07/15/17 at 17:45; Stop 07/15/17 at 18:14; Status DC Vancomycin HCl 2250 mg/Sodium Chloride 522.5 ml @ 250 mls/hr ONCE ONCE IV Last administered on 07/15/17 21:00; Start 07/15/17 at 19:00; Stop 07/15/17 at 21:05; Status DC Ampicillin Sodium 2000 mg/Sodium Chloride 100 ml @ 300 mls/hr ONCE STAT IV Last administered on 07/15/17 18:37; Start 07/15/17 at 18:00; Stop 07/15/17 at 18:19; Status DC Ceftazidime 2000 mg/Sodium Chloride 100 ml @ 200 mls/hr ONCE STAT IV Last administered on 07/15/17 19:55; Start 07/15/17 at 18:00; Stop 07/15/17 at 18:29 ; Status DC Acyclovir Sodium 1000 mg/Sodium Chloride 150 ml @ 150 mls/hr ONCE ONCE IV Last administered on 07/15/17 20:50; Start 07/15/17 at 19:00; Stop 07/15/17 at 19:59; Status DC Acetaminophen (Tylenol Supp) 650 mg ONCE ONCE RECTAL Last administered on 07/15 18:38; Start 07/15/17 at 18:30; Stop 07/15/17 at 18:31; Status DC Lorazepam (Ativan) 0.5 mg DAILY PRN PO ANXIETY; Start 07/15/17 at 20:15 Tamsulosin HCl (Flomax) 0.4 mg HS PO ; Start 07/15/17 at 21:00 Sodium Chloride 1,000 ml @ 124 mls/hr Q8H4M IV Last administered on 07/16/17 12:43; Start 07/15/17 at 20:14 Sodium Chloride (NS Flush) 2 ml UNSCH PRN .XX FLUSH AFTER USING IV ACCESS; Start 07/15/17 at 20:15 Sodium Chloride (NS Flush) 2 ml BID .XX ; Start 07/15/17 at 21:00 Acetaminophen (Tylenol) 650 mg Q6H PRN PO PAIN 1-10 AND/OR FEVER >101F; Start 07/15/17 at 20:15 Famotidine (Pepcid Inj) 20 mg Q12HR IV PUSH Last administered on 07/16/17 08: 02; Start 07/15/17 at 21:00; Stop 07/16/17 at 14:29; Status DC Ondansetron HCl (Zofran Inj) 4 mg Q6H PRN IV NAUSEA OR VOMITING; Start at 20:15 Zolpidem Tartrate (Ambien) 5 mg HS PRN PO INSOMNIA; Start 07/15/17 at 20:15 Albuterol/ Ipratropium (Duoneb Neb) 1 ampule Q2HR NEB PRN INH WHEEZING; Start 07/15/17 at 20:15 Heparin Sodium (Porcine) (Heparin Inj) 5,000 units Q12H SQ Last administered on 07/16/17 08:03; Start 07/15/17 at 20:15 Miscellaneous Information 1 [id number] XX ; Start 07/15/17 at 20:15 Chlorhexidine Gluconate (Chlorhexidine 2% Cloth) 3 pack Taper DAILY@04 TOP Last administered on 07/16/17 04:17; Start 07/16/17 at 04:00; Stop 07/12/18 at 03:59 Chlorhexidine Gluconate (Chlorhexidine 2% Cloth) 3 pack UNSCH PRN TOP HYGIENIC CARE; Start 07/15/17 at 20:15 Senna/Docusate Sodium (Annetta-Colace) 1 tab BID PO Last administered on 08:03; Start 07/15/17 at 21:00 Magnesium Hydroxide (Milk Of Magnesia Liq) 30 ml Q12H PRN PO MILD - MODERATE CONSTIPATION; Start 07/15/17 at 20:15 Sennosides (Senokot) 17.2 mg Q12H PRN PO MODERATE - SEVERE CONSTIPATION; Start 07/15/17 at 20:15 Bisacodyl (Dulcolax Supp) 10 mg DAILY PRN RECTAL SEVERE CONSITIPATION; Start at 20:15 Lactulose (Lactulose Liq) 30 ml DAILY PRN PO SEVERE CONSITIPATION; Start at 20:15 Dexamethasone Sodium Phosphate (Decadron Inj) 4 mg Q6H IV Last administered on 07/15/17 21:01; Start 07/15/17 at 20:30; Stop 07/16/17 at 00:03; Status DC Vancomycin HCl 1250 mg/Sodium Chloride 262.5 ml @ 250 mls/hr ONCE ONCE IV ; Start 07/15/17 at 21:30; Stop 07/15/17 at 22:32; Status UNV Pharmacy Profile Note 0 ml @ 0 mls/hr UNSCH OTHER ; Start 07/15/17 at 20:30 Ampicillin Sodium 2000 mg/Sodium Chloride 100 ml @ 300 mls/hr Q4H IV Last administered on 07/16/17 12:43; Start 07/15/17 at 21:00 Ceftazidime 2000 mg/Sodium Chloride 100 ml @ 200 mls/hr Q12H IV Last administered on 07/16/17 08:03; Start 07/16/17 at 08:00 Sodium Chloride 1,000 ml @ 1,000 mls/hr Q1H ONCE IV Last administered on 22:07; Start 07/15/17 at 20:21; Stop 07/15/17 at 21:20; Status DC Sodium Chloride 1,000 ml @ 1,000 mls/hr Q1H ONCE IV Last administered on 20:51; Start 07/15/17 at 20:21; Stop 07/15/17 at 21:20; Status DC Sodium Chloride 100 ml @ 1,000 mls/hr Q6M ONCE IV Last administered on 20:51; Start 07/15/17 at 20:21; Stop 07/15/17 at 20:28; Status DC Influenza Virus Vaccine (Flu (Quadrivalent) Vaccine Inj) 0.5 ml ONCE ONCE IM ; Start 07/17/17 at 10:00; Stop 07/17/17 at 10:01; Status Cancel Sodium Chloride 250 ml @ 15 mls/hr ONCE ONCE IV ; Start 07/16/17 at 10:15; Stop 07/17/17 at 02:54 Acetaminophen (Tylenol) 650 mg Q4H PRN PO SEE LABEL COMMENTS; Start 07/16/17 at 10:15; Stop 07/17/17 at 10:14 Diphenhydramine HCl (Benadryl) 25 mg Q4H PRN PO SEE LABEL COMMENTS; Start 07/16 at 10:15; Stop 07/17/17 at 10:14 Famotidine (Pepcid Inj) 10 mg Q12HR IV PUSH ; Start 07/17/17 at 09:00 A/P Assessment and Plan Altered mental status -due to sepsis. Resolved. Severe sepsis due to UTI/bacteremia - CT head negative, LP negative. Urine culture + gram negative rods. Blood culture I/4 E Coli. - ID consult pending. -On ampicillin/ceftazidime. Arthritis - Hold NSAIDs and methotrexate due to SIRS and acute kidney injury - Resume when above results Acute kidney injury - IV fluid hydration. IMPROVING. - Avoid nephrotoxin - Monitor creatinine and urine output - pending renal ultrasound Hypertension - lisinopril held due to acute kidney injury - Hydralazine when necessary to keep SBP less than 160 BPH - Flomax Anemia-normocytic normochromic -pending LDH, iron studies, stool for occult blood, reticulocyte count, SILVA, ESR. -pending Heme recommendation. DVT GI prophylaxis - Teds SCDs subcutaneous heparin and Pepcid Noemy Diaz MD Jul 16, 2017 15:05
--- NOTE | 2017-07-16 15:47 | PD.ID.CON ---
History of Present Illness Service ID Consult Requested By Critical care medicine Dr. Lorenzo Reason for Consult Evaluation and management of sepsis, gram-negative bacteremia Primary Care Physician Unknown Diagnoses: History of Present Illness Mr. Vargas is a 61-year-old white male with past medical history of rheumatoid arthritis was on methotrexate, osteoarthritis, prostatectomy enlargement reportedly benign. He also reports history of recurrent urinary tract infection is most recent urinary tract infection was several months back. He reports he is homosexual/MSM. Patient is an extremely poor historian and had to be redirected several times throughout the conversation. He has word finding difficulty as well as tangential thinking. Patient reports that he is visiting his mom to help her move to [place] where he lives. He was reportedly brought in by his mother as she found him confused and unaware of events. Reportedly when patient arrived to the emergency department he was completely nonverbal but had no neurological deficit and was not found to have any seizures. A stroke alert was called and patient was ruled out to have a stroke. Patient did have a lumbar puncture as well as a sepsis workup was initiated on admission. On 07/15/2017, hemoglobin 8.3, white count 15,000 and platelet count of 357,000, the differential was unremarkable. The following day, 07/16, hemoglobin 7, white count 12,600 and platelets 276,000, again with an unremarkable differential. He was found to be in renal failure with a BUN of 41, creatinine 3.7. Liver function tests are normal. On arrival, he had an elevated temperature of 101.7. Blood cultures are currently growing out gram-negative rods and he is on antibiotics. Chest x-ray on 07/15/2017 showing no acute cardiopulmonary disease. 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 Patient is in the ISC at the time of my visit with the patient. He's sitting in his bed has no neurological deficit. He's currently not on any pressors and is on room air. He has good urine output. Speech as described earlier. Blood cultures done on admission are positive for ESBL Escherichia coli based on Verigene testing. Urine cultures are positive for gram-negative rods. Patient is currently on Zosyn IV. Clinically he does not appear to be in overt sepsis and appears to have stabilized. Infectious disease is consulted for evaluation and management of gram-negative bacteremia. Review of Systems ROS Limitations: Poor Historian Constitutional: COMPLAINS OF: Fever, Chills (the last 6 weeks.) Endocrine: DENIES: Heat/cold intolerance, Polydipsia, Polyuria, Polyphagia Eyes: DENIES: Blurred vision, Diplopia, Eye inflammation, Eye pain, Vision loss , Photosensitivity, Double Vision Ears, nose, mouth, throat: DENIES: Tinnitus, Hearing loss, Vertigo, Nasal discharge, Oral lesions, Throat pain, Hoarseness, Ear Pain, Running Nose, Epistaxis, Sinus Pain, Toothache, Odynophagia Respiratory: DENIES: Apneas, Cough, Snoring, Wheezing, Hemoptysis, Sputum production, Shortness of breath Cardiovascular: DENIES: Chest pain, Palpitations, Syncope, Dyspnea on Exertion , PND, Lower Extremity Edema, Orthopnea, Claudication Gastrointestinal: DENIES: Abdominal pain, Black stools, Bloody stools, Constipation, Diarrhea, Nausea, Vomiting, Difficulty Swallowing, Anorexia Genitourinary: DENIES: Sexual dysfunction, Urinary frequency, Urinary incontinence, Urgency, Hematuria, Dysuria, Nocturia, Penile Discharge, Testicular Pain, Testicular Swelling Musculoskeletal: DENIES: Joint pain, Muscle aches, Stiffness, Joint Swelling, Back pain, Neck pain Integumentary: DENIES: Abnormal pigmentation, Nail changes, Pruritus, Rash Hematologic/lymphatic: DENIES: Bruising, Lymphadenopathy Immunologic/allergic: DENIES: Eczema, Urticaria Neurologic: COMPLAINS OF: Speech Problems, DENIES: Abnormal gait, Headache, Localized weakness, Paresthesias, Seizures, Tremor, Poor Balance Psychiatric: DENIES: Anxiety, Confusion, Mood changes, Depression, Hallucinations, Agitation, Suicidal Ideation, Homicidal Ideation, Delusions Except as stated in HPI: all other systems reviewed are Neg Past Family Social History Allergies: Coded Allergies: No Known Allergies (Verified Allergy, Unknown, 07/15/17) Unable to Assess (Verified Allergy, Unknown, 07/15/17) Past Medical History 1. Rheumatoid arthritis for which he takes methotrexate 2.5 milligrams nine tablets once a week. 2. Osteoarthritis. 3. Depression. 4. Sinus infections. 5. Genital herpes. Past Surgical History Deviated nasal septum repair. Injury to the left shoulder and tendon tears. Removal of the left testicle due to injuries from injection of silicone into the scrotal sac. Surgical removal of bone spurs. Reported Medications Reported Meds & Active Scripts Active Reported Lorazepam 0.5 Mg Tab 0.5 Mg PO DAILY PRN Tramadol (Tramadol HCl) 50 Mg Tab 50 Mg PO Q4H PRN Etodolac 400 Mg Tab 400 Mg PO BID PRN Take with food. Methotrexate 2.5 Mg Tab 2.5 Mg PO DAILY Lomotil (Diphenoxylate-Atropine) 2.5-0.025 Mg Tab 1 Tab PO Q6H PRN Lisinopril 10 Mg Tab 10 Mg PO DAILY Flomax (Tamsulosin HCl) 0.4 Mg Cap 0.4 Mg PO HS Active Ordered Medications Current Medications Medications (Trade) Dose Ordered Sig/Víctor Route Start Time Stop Time Status Last Admin (Ativan) 0.5 mg DAILY PRN PO 07/15/17 20:15 (Flomax) 0.4 mg HS PO 07/15/17 21:00 Sodium Chloride 1,000 ml @ 124 mls/hr Q8H4M IV 07/15/17 20:14 07/16/17 12:43 (NS Flush) 2 ml UNSCH PRN .XX 07/15/17 20:15 (NS Flush) 2 ml BID .XX 07/15/17 21:00 (Tylenol) 650 mg Q6H PRN PO 07/15/17 20:15 (Zofran Inj) 4 mg Q6H PRN IV 07/15/17 20:15 (Ambien) 5 mg HS PRN PO 07/15/17 20:15 (Duoneb Neb) 1 ampule Q2HR NEB PRN INH 07/15/17 20:15 (Heparin Inj) 5,000 units Q12H SQ 07/15/17 20:15 07/16/17 08:03 Miscellaneous Information 1 Q361D XX 07/15/17 20:15 (Chlorhexidine 2% Cloth) 3 pack Taper DAILY@04 TOP 07/16/17 04:00 07/12/18 03:59 07/16/17 04:17 (Chlorhexidine 2% Cloth) 3 pack UNSCH PRN TOP 07/15/17 20:15 (Annetta-Colace) 1 tab BID PO 07/15/17 21:00 07/16/17 08:03 (Milk Of Magnesia Liq) 30 ml Q12H PRN PO 07/15/17 20:15 (Senokot) 17.2 mg Q12H PRN PO 07/15/17 20:15 (Dulcolax Supp) 10 mg DAILY PRN RECTAL 07/15/17 20:15 (Lactulose Liq) 30 ml DAILY PRN PO 07/15/17 20:15 Sodium Chloride 250 ml @ 15 mls/hr ONCE ONCE IV 07/16/17 10:15 07/17/17 02:54 07/16/17 10:15 (Tylenol) 650 mg Q4H PRN PO 07/16/17 10:15 07/17/17 10:14 (Benadryl) 25 mg Q4H PRN PO 07/16/17 10:15 07/17/17 10:14 (Pepcid Inj) 10 mg Q12HR IV PUSH 07/17/17 09:00 (ASP Crit: Doc ESBL, MDR A baumannii or P aer) 1 UNSCH X1 PRN .XX 07/16/17 16:00 07/17/17 15:59 ([facility] Information) 1 UNSCH X1 PRN XX 07/16/17 16:00 07/17/17 15:59 Meropenem 500 mg/ Sodium Chloride 100 ml @ 200 mls/hr Q12H IV 07/16/17 17:00 07/16/17 17:00 Family History Noncontributory. Social History Lives in [facility]. Here to help his mother move to [place] with him. 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 He denies any IV drug abuse. Denies any alcohol consumption. He reports being homosexual and using all routes. The patient is single. He was never . He has no children. 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 He is visiting this area helping his mom move from the [facility] to [place] where she will live with him. He does not smoke. There has been minimal alcohol intake in the past. He was born in [facility] and has lived in [place] since 1968. Physical Exam Vital Signs Vital Signs Date Time Temp Pulse Resp B/P (MAP) Pulse Ox O2 Delivery O2 Flow Rate FiO2 07/16/17 14:54 98.7 91 19 115/78 (90) 100 07/16/17 14:00 89 07/16/17 12:00 88 07/16/17 12:00 97.8 88 14 119/66 (83) 97 07/16/17 10:00 93 07/16/17 08:05 95 21 07/16/17 08:00 76 07/16/17 08:00 97.7 76 20 94/63 (73) 96 07/16/17 07:00 97 Room Air 07/16/17 06:00 78 07/16/17 04:00 97 07/16/17 04:00 97.6 97 20 121/64 (83) 96 07/16/17 02:00 85 07/16/17 00:00 97 Room Air 07/16/17 00:00 95 07/16/17 00:00 98.1 95 16 106/71 (83) 97 07/15/17 23:00 92 07/15/17 21:00 98.2 98 16 102/60 (74) 100 Nasal Cannula 2.00 07/15/17 20:00 99.7 108 16 98/65 (76) 100 Nasal Cannula 2.00 07/15/17 18:07 101.5 127 20 101/57 (72) 100 Nasal Cannula 2.00 07/15/17 17:33 101.7 129 22 97/57 (70) 98 Nasal Cannula 2.00 07/15/17 17:30 98 Nasal Cannula 2.00 07/15/17 17:30 98 2.00 Physical Exam GENERAL: This is a well-nourished, well-developed patient, in no apparent distress. SKIN: No rashes, ecchymoses or lesions. Cool and dry. HEAD: Atraumatic. Normocephalic. No temporal or scalp tenderness. EYES: Pupils equal round and reactive. Extraocular motions intact. No scleral icterus. No injection or drainage. ENT: Nose without bleeding, purulent drainage or septal hematoma. Throat without erythema, tonsillar hypertrophy or exudate. Uvula midline. Airway patent. NECK: Trachea midline. Supple, nontender, no meningeal signs. CARDIOVASCULAR: Regular rate and rhythm without murmurs, gallops, or rubs. RESPIRATORY: Clear to auscultation. Breath sounds equal bilaterally. No wheezes , rales, or rhonchi. GASTROINTESTINAL: Abdomen soft, non-tender, nondistended. MUSCULOSKELETAL: Extremities without clubbing, cyanosis, or edema. NEUROLOGICAL: Awake and alert. Speech pressurized. Word finding difficulty. Tangential thinking. No focal neuro deficit. Patient had to be redirected several times. Psych: cooperative IV line sites with no e.o infection. Laboratory Laboratory Tests Test 07/15/17 17:36 07/15/17 17:50 07/15/17 18:10 07/15/17 18:45 White Blood Count 15.2 Red Blood Count 2.90 Hemoglobin 8.3 Bedside Hemoglobin 9.5 Hematocrit 26.1 Bedside Hematocrit 28.0 Mean Corpuscular Volume 90.1 Mean Corpuscular Hemoglobin 28.6 Mean Corpuscular Hemoglobin Concent 31.8 Red Cell Distribution Width 18.7 Platelet Count 357 Mean Platelet Volume 8.1 Neutrophils (%) (Auto) 90.0 Lymphocytes (%) (Auto) 2.3 Monocytes (%) (Auto) 7.1 Eosinophils (%) (Auto) 0.5 Basophils (%) (Auto) 0.1 Neutrophils # (Auto) 13.7 Lymphocytes # (Auto) 0.4 Monocytes # (Auto) 1.1 Eosinophils # (Auto) 0.1 Basophils # (Auto) 0.0 CBC Comment DIFF FINAL Differential Comment Prothrombin Time 12.3 Prothromb Time International Ratio 1.1 Activated Partial Thromboplast Time 33.9 Fibrinogen 849 Bedside Sodium 135 Blood Urea Nitrogen 41 Creatinine 3.73 Random Glucose 135 Total Protein 7.1 Albumin 2.3 Calcium Level 7.9 Phosphorus Level 2.0 Alkaline Phosphatase 90 Aspartate Amino Transf (AST/SGOT) 15 Alanine Aminotransferase (ALT/SGPT) 14 Total Bilirubin 0.6 Sodium Level 131 Potassium Level 3.9 Chloride Level 98 Carbon Dioxide Level 21.2 Bedside Potassium 4.0 Bedside Chloride 100 Anion Gap 12 Bedside Blood Urea Nitrogen 39 Bedside Creatinine 3.9 Estimat Glomerular Filtration Rate 17 Bedside Glucose 141 Lactic Acid Level 1.6 Total Creatine Kinase 133 Troponin I LESS THAN 0.02 Urine Color YELLOW Urine Turbidity CLOUDY Urine pH 5.5 Urine Specific [place] 1.023 Urine Protein 300 Urine Glucose (UA) NEG Urine Ketones NEG Urine Occult Blood MOD Urine Nitrite NEG Urine Bilirubin NEG Urine Urobilinogen 2.0 Urine Leukocyte Esterase LARGE Urine RBC 25 Urine WBC Urine WBC Clumps MANY Urine Squamous Epithelial Cells 3 Urine Bacteria MANY Urine Mucus FEW Microscopic Urinalysis Comment CULTURE INDICATED Urine Opiates Screen NEG Urine Barbiturates Screen NEG Urine Amphetamines Screen NEG Urine Benzodiazepines Screen NEG Urine Cocaine Screen NEG Urine Cannabinoids Screen NEG CSF Volume (Tube 1) 3.0 CSF Supernatant Color (tube 1) CLEAR CSF Gross Blood (Tube 1) 0 CSF Volume (Tube 2) 4.0 CSF Supernatant Color (tube 2) CLEAR CSF Gross Blood (Tube 2) 0 CSF Volume (Tube 3) 3.0 CSF Supernatant Color (tube 3) CLEAR CSF Gross Blood (Tube 3) 0 CSF Volume (Tube 4) 1.0 CSF Supernatant Color (tube 4) CLEAR CSF WBC (Tube 4) 0 CSF RBC (Tube 4) 1 CSF Neutrophils 0 CSF Lymphocytes 0 CSF Glucose 77 CSF Total Protein 48.3 Test 07/16/17 01:10 07/16/17 05:24 07/16/17 13:30 Nasal Screen MRSA (PCR) MRSA NOT DETECTED White Blood Count 12.6 Red Blood Count 2.38 Hemoglobin 7.0 Hematocrit 21.7 Mean Corpuscular Volume 91.1 Mean Corpuscular Hemoglobin 29.2 Mean Corpuscular Hemoglobin Concent 32.1 Red Cell Distribution Width 18.6 Platelet Count 276 Mean Platelet Volume 8.2 Neutrophils (%) (Auto) 95.8 Lymphocytes (%) (Auto) 2.5 Monocytes (%) (Auto) 1.6 Eosinophils (%) (Auto) 0.1 Basophils (%) (Auto) 0.0 Neutrophils # (Auto) 12.0 Lymphocytes # (Auto) 0.3 Monocytes # (Auto) 0.2 Eosinophils # (Auto) 0.0 Basophils # (Auto) 0.0 CBC Comment DIFF FINAL Differential Comment Blood Urea Nitrogen 34 Creatinine 2.54 Random Glucose 192 Total Protein 5.7 Albumin 1.7 Calcium Level 7.1 Phosphorus Level 3.1 Magnesium Level 2.1 Alkaline Phosphatase 73 Aspartate Amino Transf (AST/SGOT) 16 Alanine Aminotransferase (ALT/SGPT) 13 Total Bilirubin 0.4 Sodium Level 137 Potassium Level 4.3 Chloride Level 108 Carbon Dioxide Level 19.8 Anion Gap 9 Estimat Glomerular Filtration Rate 26 Protein Corrected Calcium 7.8 Erythrocyte Sedimentation Rate GREATER THAN 140 Reticulocyte Count 0.9 Absolute Reticulocyte Count 28.9 Haptoglobin 589 Iron Level 47 Total Iron Binding Capacity 153 Percent Iron Saturation 30.8 Ferritin 2281 Lactate Dehydrogenase 172 Prostate Specific Antigen 0.76 Vitamin B12 Level 837 Folate 15.9 Rheumatoid Factor Screen NEGATIVE Rheumatoid Factor Titer Date/Time Source Procedure Growth Status 07/15/17 21:20 Blood Arterial Line Aerobic Blood Culture - Preliminary NO GROWTH IN 1 DAY Resulted 07/15/17 21:20 Blood Arterial Line Anaerobic Blood Culture - Preliminary NO GROWTH IN 1 DAY Resulted 07/15/17 18:45 Cerebral Spinal Fluid Lumbar Puncture Fungal Smear - Final NO FUNGAL ELEMENTS SEEN. Resulted 07/15/17 18:45 Cerebral Spinal Fluid Lumbar Puncture Fungal Culture Pending Resulted 07/15/17 17:50 Urine Clean Catch Urine Culture - Preliminary Gram Negative Good Resulted Result Diagram: 07/16/17 0524 07/16/17 0524 Imaging Last Impressions Renal Ultrasound 07/16/17 0000 Signed Impressions: Service Date/Time: Sunday, July 16, 2017 17:25 - CONCLUSION: Two right renal cysts. Arron Mccain MD Head CT 07/15/17 0000 Signed Impressions: Service Date/Time: Saturday, July 15, 2017 17:36 - CONCLUSION: 1. 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 2. No acute hemorrhage, acute infarct, mass effect or extra axial fluid collections. Arron Mccain MD Chest X-Ray 07/15/17 0000 Signed Impressions: Service Date/Time: Saturday, July 15, 2017 19:34 - CONCLUSION: No acute disease. Arron Mccain MD Assessment and Plan Assessment and Plan Sepsis present on admission likely sources UTI and bacteremia. Gram-negative bacteremia. Preliminary ID as ESBL Escherichia coli. Likely source UTI. Gram-negative good UTI. Prior history of recurrent UTIs, history of renal stones, history of prostate problems. History of silicon injections into the scrotum in the past. History of GI bleeding in the past. Anemia undergoing workup as well as status post blood transfusion. Acute and cephalic at the present on admission appears to have resolved except for the speech issues. Neurology evaluating the patient. Recommendations Discontinue acyclovir IV Discontinue ampicillin IV Discontinue ceftazidime IV Discontinue Vanco IV CSf reviewed and violetta Virgen and [facility] . Start meropenem(ASP criteria: ESBL E.coli bacteremia based on Verigene testing) Follow cultures Follow clinically. agree with Urology consult. Needs Imaging for kidney, will wait on Urology input as Cr high and clinically ok at the present time. Violetta Virgen Neurologist: does not appear to be meningoencephalitis. Likely metabolic encephalopathy which appears to have resolved. Pressured speech is likely due to underlying psychiatric issues. He will order a MRI of the brain. Discussed with critical care medicine. Discussed with RN. Critical thinking, decision making, MAR review, culture review, Dose adjustments , d.w multiple health care team members. Time in excess of 80 mins. Gayle Bruno MD Jul 16, 2017 15:47
[2017-07-16] MEDS ORDERED: ASP: Documented ESBL, MDR A baumannii or P. aeruginosa PRN (16:00)
[2017-07-16] MEDS ORDERED: MISCELLANEOUS PHARMACY INFORMATION XX PRN (16:00)
[2017-07-16] MEDS: MEROPENEM INJ 500 MG in SODIUM CHLORIDE 0.9% INJ 100 ML IV SCH (17:00)
--- NOTE | 2017-07-16 18:37 | RADRPT ---
EXAM DATE/TIME: 07/16/2017 17:25 [place] COMPARISON: No previous studies available for comparison. INDICATIONS : Increased BUN and creatinine. MEDICAL HISTORY : Hypertension. BPH. SURGICAL HISTORY : None. ENCOUNTER: Initial ACUITY: 1 day PAIN SCORE: 0/10 LOCATION: Bilateral flank MEASUREMENTS: RIGHT KIDNEY: 13.9 x 6.5 x 6.5 cm LEFT KIDNEY: 13.0 x 6.6 x 6.0 cm FINDINGS: Simple cysts are noted within the right kidney measuring 2.9 x 2.5 x 2.3 cm in the upper pole and 1.0 x 1.0 cm in the mid pole. No solid renal mass is noted on either side. No hydronephrosis is noted. The left kidney is unremarkable. The urinary bladder contains a Crocker catheter and its evaluation is limited due to non-distention. CONCLUSION: Two right renal cysts. Arron Mccain MD on July 16, 2017 at 18:23 Board Certified Radiologist. This report was verified electronically.
[2017-07-16 20:11] LABS: HEMATOCRIT 27.6 % (39.0-51.0); REVIEW FLAG FINAL
[2017-07-16] MEDS: TAMSULOSIN HCL 0.4 MG CAP PO SCH (21:21)
[2017-07-17] VITALS (15 sets, daily range): BP systolic 124–148; BP diastolic 71–92; PULSE 70–111; RESP 17–30; TEMP 97.9–100; O2SAT 96–100
[2017-07-17] MEDS: ACETAMINOPHEN 325 MG TAB PO PRN ×2 (02:19→21:39)
[2017-07-17] MEDS: SODIUM CHLOR 0.9% 1000 ML INJ 1,000 ML IV SCH ×3 (03:34→18:16)
[2017-07-17] MEDS: MEROPENEM INJ 500 MG in SODIUM CHLORIDE 0.9% INJ 100 ML IV SCH ×2 (04:18→17:06)
--- NOTE | 2017-07-17 06:49 | MB ---
cc: JUANA MARTIN DATE OF CONSULTATION 07/16/2017 REASON FOR CONSULTATION Altered mental status. HISTORY OF PRESENT ILLNESS Mr. Vargas is a 61-year-old male who has been admitted to the [facility] after he presented for altered mental status. The patient's mother called EMS and he was found sitting in the hallway confused, unaware. He is visiting from [place]. He was nonverbal during transport, questionable abnormal movement. No seizures. He has frequent episodes of UTI and he has informed the nurse that he is homosexual and staff and attending noted some speech difficulty and thus they wanted neurological assessment. The patient states that he suffers from depression and anxiety since childhood and he has so many stressors in life and he is homosexual, never . The patient denies headache, double vision, blurred vision, weakness of an extremity , seizures, history of TIA or stroke. REVIEW OF SYSTEMS A 12-point review of systems is negative except what is stated in the HPI. PAST MEDICAL HISTORY 1. Depression. 2. Genital herpes. 3. Recurrent UTI. PAST SURGICAL HISTORY 1. Silicone injections to the scrotum. 2. Deviated septum repair. 3. Injury left shoulder. MEDICATIONS 1. Lomotil. 2. Etodolac. 3. Lisinopril. 4. Lorazepam. 5. Methotrexate. 6. Flomax. ALLERGIES None. FAMILY HISTORY Noncontributory. SOCIAL HISTORY Denies alcohol, tobacco and illicit drugs. PHYSICAL EXAMINATION GENERAL: Awake, aware, depressed. Not in acute distress HEENT: Atraumatic, normocephalic. Intact hearing. Intact vision. CARDIOVASCULAR: Normal rate and rhythm. RESPIRATORY: Clear to auscultation. No wheezes. ABDOMEN: Soft, nontender. EXTREMITIES: No deformities. No clubbing, no cyanosis. NEUROLOGICAL: Awake, alert, oriented to time, person and place. No dysarthria , no dysphagia. However, when he talks he occasionally stutters and there is pressure when he pronounces some words and during the encounter he removes the upper denture and tells me that this is the reason why he is having this speech difficulty. Upper and lower extremities are grossly intact. No abnormal movements. Intact sensation. Normal cerebellar function. PSYCHOLOGICAL: Normal behavior is intact. Looks depressed. Emotional during the encounter. ASSESSMENT 1. Depression. 2. Stuttering of speech. No component of dysphasia or dysarthria. 3. Neurological exam is nonfocal and there is no speech abnormality in terms of dysarthria or dysphagia. Intact speech content. There is no need for further neurological testing. 4. May consider psychological consult. PLAN 1. I discussed the case with the Infectious Disease specialist and raw silk grader and registered nurse. 2. Please call for questions. 3. We will sign off the case. Thank you for the opportunity to participate in the care of your patient. id MD OLEG Comer/CHRIS /12:07 AM /6:30 AM MTDD
[2017-07-17] MEDS ORDERED: LORazepam 2 MG/ML VIAL ONE (08:03)
[2017-07-17] MEDS ORDERED: HALOPERIDOL LACTATE 5 MG/ML AMP IV ONE (09:00)
[2017-07-17 09:35] LABS: AUTOMATED NEUTROPHIL # 15.9 TH/MM3 (1.8-7.7); BASOPHIL % 0.2 % (0.0-2.0); LYMPH % 3.8 % (9.0-44.0); LYMPHOCYTE # 0.6 TH/MM3 (1.0-4.8); MEAN CELL VOLUME 89.8 FL (80.0-100.0); MEAN CORPUSCULAR HEMOGLOBIN 28.8 PG (27.0-34.0); MEAN CORPUSCULAR HGB CONC 32.1 % (32.0-36.0); MONO % 4.2 % (0.0-8.0); NEUT % 91.8 % (16.0-70.0); PLATELET COUNT 400 TH/MM3 (150-450); RED BLOOD COUNT 3.12 MIL/MM3 (4.50-5.90); RED CELL DISTRIBUTION WIDTH 18.7 % (11.6-17.2); WHITE BLOOD COUNT 17.3 TH/MM3 (4.0-11.0)
[2017-07-17] MEDS: SODIUM CHLORIDE 0.9% FLUSH 10 ML FLUSH SCH ×2 (09:43→21:42)
[2017-07-17] MEDS: HEPARIN SODIUM - SQ 10,000 UNITS/ML VIAL SQ SCH ×2 (09:43→21:43)
[2017-07-17 09:44] LABS: HEMO FLAGS AUTO DIFF
[2017-07-17] MEDS: DOCUSATE SODIUM 50 MG/SENNA 8.6 MG TAB PO SCH ×2 (09:44→21:00)
[2017-07-17] MEDS: FAMOTIDINE 20 MG/2 ML VIAL IV PUSH SCH ×2 (09:44→21:42)
[2017-07-17] MEDS ORDERED: INFLUENZA VIRUS VACCINE (QUADRIVALENT) 0.5 ML SYR IM ONE (10:00)
--- NOTE | 2017-07-17 11:02 | PD.CONS ---
[facility] Service Urology Consult Requested By Reason for Consult History scrotal silicone implants now admitted with UTI Primary Care Physician Unknown Diagnosis: History of Present Illness 61-year-old gentleman with history BPH and recurrent urinary tract infections who was admitted for further workup and management of altered mental status. During course of his hospitalization patient was noted to have a Escherichia coli urinary tract infection and infectious disease was consulted and started on appropriate antibiotics. His serum creatinine was elevated upon presentation to the emergency room and has been improving with Crocker catheter drainage. His upper tracts were evaluated with a renal ultrasound and several cysts involving the right kidney were noted however there is no evidence of hydronephrosis or calculi. Patient is a very poor historian which is unclear if it is related to his altered mental status or his baseline. Upon review of the medical record it appears the patient had scrotal silicone implants performed approximately 6 years ago for cosmetic reasons and apparently subsequently required a left orchiectomy from probable infection. Patient is also presently taking Flomax for his BPH. Patient was unable to give me the name of his urologist. At the time of consultation the patient did have an indwelling Crocker catheter which was draining yellow cloudy urine. Review of Systems ROS Limitations: Poor Historian Past Family Social History Past Medical History BPH Recurrent UTIs Genital herpes Depression Past Surgical History Status post silicone scrotal injections for cosmetic reasons Status post left orchiectomy believed secondary to infection Status post deviated septum repair Status post left shoulder surgery Reported Medications Refer to EMR Allergies: Coded Allergies: No Known Allergies (Verified Allergy, Unknown, 07/15/17) Unable to Assess (Verified Allergy, Unknown, 07/15/17) Active Ordered Medications Refer to EMR Family History Reviewed and noncontributory Social History Single homosexual male No history alcohol, tobacco or illicit drug usage Physical Exam Vital Signs Date Time Temp Pulse Resp B/P (MAP) Pulse Ox O2 Delivery O2 Flow Rate FiO2 07/17/17 07:41 100 21 07/17/17 07:00 100 Room Air 07/17/17 06:00 75 07/17/17 04:00 98.2 82 18 132/92 (105) 97 07/17/17 04:00 82 07/17/17 02:00 80 07/17/17 00:00 83 07/17/17 00:00 98.8 83 18 124/79 (94) 97 07/16/17 22:00 92 07/16/17 20:00 98.8 92 18 143/82 (102) 99 07/16/17 20:00 87 07/16/17 19:00 100 Room Air 07/16/17 18:00 61 07/16/17 16:00 98.2 78 21 116/62 (80) 96 07/16/17 16:00 78 07/16/17 14:54 98.7 91 19 115/78 (90) 100 07/16/17 14:00 89 07/16/17 12:00 88 07/16/17 12:00 97.8 88 14 119/66 (83) 97 Physical Exam GENERAL: This is a well-nourished, well-developed patient, in no apparent distress. SKIN: No rashes, ecchymoses or lesions. Cool and dry. HEAD: Atraumatic. Normocephalic. No temporal or scalp tenderness. EYES: Pupils equal round and reactive. Extraocular motions intact. No scleral icterus. No injection or drainage. ENT: Nose without bleeding, purulent drainage or septal hematoma. Throat without erythema, tonsillar hypertrophy or exudate. Uvula midline. Airway patent. NECK: Trachea midline. No JVD or lymphadenopathy. Supple, nontender, no meningeal signs.. GASTROINTESTINAL: Abdomen soft, non-tender, nondistended. No hepato-splenomegaly , or palpable masses. No guarding. GENITOURINARY: Crocker catheter in place draining cloudy yellow urine. Normal phallus, no evidence of scrotal erythema or abscess formation. Multiple hard irregularities appreciated in scrotum consistent with history of silicone implants. MUSCULOSKELETAL: Extremities without clubbing, cyanosis, or edema. No joint tenderness, effusion, or edema noted. No calf tenderness. NEUROLOGICAL: Appears somewhat confused Cranial nerves II through XII intact. Motor and sensory grossly within normal limits. Slow speech. Lab results reviewed: Yes Laboratory Tests Test 07/16/17 13:30 07/16/17 19:25 07/17/17 08:28 Erythrocyte Sedimentation Rate GREATER THAN 140 Reticulocyte Count 0.9 Absolute Reticulocyte Count 28.9 Haptoglobin 589 Iron Level 47 Total Iron Binding Capacity 153 Percent Iron Saturation 30.8 Ferritin 2281 Lactate Dehydrogenase 172 C-Reactive Protein 24.90 Prostate Specific Antigen 0.76 Vitamin B12 Level 837 Folate 15.9 Rheumatoid Factor Screen NEGATIVE Rheumatoid Factor Titer Hemoglobin 8.7 9.0 Hematocrit 27.6 28.0 White Blood Count 17.3 Red Blood Count 3.12 Mean Corpuscular Volume 89.8 Mean Corpuscular Hemoglobin 28.8 Mean Corpuscular Hemoglobin Concent 32.1 Red Cell Distribution Width 18.7 Platelet Count 400 Mean Platelet Volume 8.0 Neutrophils (%) (Auto) 91.8 Lymphocytes (%) (Auto) 3.8 Monocytes (%) (Auto) 4.2 Eosinophils (%) (Auto) 0.0 Basophils (%) (Auto) 0.2 Neutrophils # (Auto) 15.9 Lymphocytes # (Auto) 0.6 Monocytes # (Auto) 0.7 Eosinophils # (Auto) 0.0 Basophils # (Auto) 0.0 CBC Comment AUTO DIFF Date/Time Source Procedure Growth Status 07/17/17 04:41 Blood Peripheral Aerobic Blood Culture Pending Received 07/17/17 04:41 Blood Peripheral Anaerobic Blood Culture Pending Received 07/15/17 18:45 Cerebral Spinal Fluid Lumbar Puncture Fungal Smear - Final NO FUNGAL ELEMENTS SEEN. Resulted 07/15/17 18:45 Cerebral Spinal Fluid Lumbar Puncture Fungal Culture Pending Resulted 07/16/17 23:00 Sputum Expectorated Sputum Gram Stain Pending Received 07/16/17 23:00 Sputum Expectorated Sputum Sputum Culture Pending Received 07/15/17 17:50 Urine Clean Catch Urine Culture - Final Escherichia Coli Esbl Positive Complete Result Diagram: 07/17/17 0828 07/16/17 0524 Personally reviewed images: Yes Imaging Last Impressions Renal Ultrasound 07/16/17 0000 Signed Impressions: Service Date/Time: Sunday, July 16, 2017 17:25 - CONCLUSION: Two right renal cysts. Arron Mccain MD Head CT 07/15/17 0000 Signed Impressions: Service Date/Time: Saturday, July 15, 2017 17:36 - CONCLUSION: 1. 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 2. No acute hemorrhage, acute infarct, mass effect or extra axial fluid collections. Arron Mccain MD Chest X-Ray 07/15/17 0000 Signed Impressions: Service Date/Time: Saturday, July 15, 2017 19:34 - CONCLUSION: No acute disease. Arron Mccain MD Assessment and Plan Assessment and Plan Urologic impression: #1 Urinary tract infection and elevation of the serum creatinine most likely related to bladder outlet obstruction. #2 history of silicone scrotal implants without evidence of current scrotal infection #3 simple right renal cysts Recommendations: #1 agree with management of UTI as per infectious disease recommendations #2 continue with Crocker catheter to gravity drainage and do not remove until urologic workup completed #3 outpatient workup to include cystoscopic evaluation when medically stable ( patient should follow up with his established urologist for ongoing evaluation). #4 will be available as needed during present hospitalization. Ed Lloyd MD Jul 17, 2017 11:02
[2017-07-17 12:53] LABS: SCAN/DIFF AUTO DIFF CONFIRMED; TOXIC GRANULATION 1+ (NORMAL)
--- NOTE | 2017-07-17 14:23 | HHI.PR ---
Subjective Remarks Follow-up for bacteremia Dealt with patient's nurse at the bedside. Per patient's nurse he was agitated earlier today and had to give Ativan and put in restraints. She stated that patient was confused and try to pull lines and get out of bed. When I saw patient he was sitting up in the bed with no agitation but in restraints. When I asked him how he was doing he did not say much. When I asked MsUrban name he stated"I think it is Suresh Vargas. When I asked him location, "I thought I was in the [facility] but I'm not sure anymore." He has a flat affect. When I try to talk to patient further he seems to only want to talk to nurse and not to me. This was similar behavior from yesterday when patient was definitely not altered. Objective Vitals Vital Signs Date Time Temp Pulse Resp B/P (MAP) Pulse Ox O2 Delivery O2 Flow Rate FiO2 07/17/17 12:00 97.9 84 30 148/81 (103) 96 07/17/17 12:00 84 07/17/17 10:00 78 07/17/17 08:00 74 07/17/17 08:00 98.4 74 17 130/84 (99) 99 07/17/17 07:41 100 21 07/17/17 07:00 100 Room Air 07/17/17 06:00 75 07/17/17 04:00 98.2 82 18 132/92 (105) 97 07/17/17 04:00 82 07/17/17 02:00 80 07/17/17 00:00 83 07/17/17 00:00 98.8 83 18 124/79 (94) 97 07/16/17 22:00 92 07/16/17 20:00 98.8 92 18 143/82 (102) 99 07/16/17 20:00 87 07/16/17 19:00 100 Room Air 07/16/17 18:00 61 07/16/17 16:00 98.2 78 21 116/62 (80) 96 07/16/17 16:00 78 07/16/17 14:54 98.7 91 19 115/78 (90) 100 I/O 07/16/17 07/16/17 07/16/17 07/17/17 07/17/17 07/17/17 07:00 15:00 23:00 07:00 15:00 23:00 Intake Total 2450 ml 15 ml 2990 ml 2320 ml 1000 ml Output Total 1000 ml 1350 ml 1000 ml Balance 1450 ml 15 ml 1640 ml 1320 ml 1000 ml Intake Oral 720 ml 800 ml 720 ml IV Total 1730 ml 1920 ml 1600 ml 1000 ml Packed Cells 250 ml Blood Product IV Normal Saline Flush 15 ml 20 ml Output Urine Total 1000 ml 1350 ml 1000 ml # Bowel Movements 0 2 0 Result Diagram: 07/17/1782707/16/17523 Objective Remarks GENERAL: in NAD sitting in bed calmly in wrist restraint. CARDIOVASCULAR: Regular rate and rhythm without murmurs, gallops, or rubs. RESPIRATORY: Breath sounds equal bilaterally. No accessory muscle use. Psych: Flat affect. Medications and IVs Current Medications Sodium Chloride 1,000 ml @ 70 mls/hr [id number] ONCE IV Last administered on 07/15 19:55; Start 07/15/17 at 17:35; Stop 07/16/17 at 07:52; Status DC Sodium Chloride 1,000 ml @ 2,000 mls/hr Q30M ONCE IV Last administered on 07/15 18:54; Start 07/15/17 at 17:45; Stop 07/15/17 at 18:14; Status DC Sodium Chloride 1,000 ml @ 2,000 mls/hr Q30M ONCE IV Last administered on 07/15 18:53; Start 07/15/17 at 17:45; Stop 07/15/17 at 18:14; Status DC Vancomycin HCl 2250 mg/Sodium Chloride 522.5 ml @ 250 mls/hr ONCE ONCE IV Last administered on 07/15/17 21:00; Start 07/15/17 at 19:00; Stop 07/16/17 at 15:54; Status DC Ampicillin Sodium 2000 mg/Sodium Chloride 100 ml @ 300 mls/hr ONCE STAT IV Last administered on 07/15/17 18:37; Start 07/15/17 at 18:00; Stop 07/15/17 at 18:19; Status DC Ceftazidime 2000 mg/Sodium Chloride 100 ml @ 200 mls/hr ONCE STAT IV Last administered on 07/15/17 19:55; Start 07/15/17 at 18:00; Stop 07/15/17 at 18:29 ; Status DC Acyclovir Sodium 1000 mg/Sodium Chloride 150 ml @ 150 mls/hr ONCE ONCE IV Last administered on 07/15/17 20:50; Start 07/15/17 at 19:00; Stop 07/15/17 at 19:59; Status DC Acetaminophen (Tylenol Supp) 650 mg ONCE ONCE RECTAL Last administered on 07/15 18:38; Start 07/15/17 at 18:30; Stop 07/15/17 at 18:31; Status DC Lorazepam (Ativan) 0.5 mg DAILY PRN PO ANXIETY Last administered on 07/17/17 02:18; Start 07/15/17 at 20:15 Tamsulosin HCl (Flomax) 0.4 mg HS PO Last administered on 07/16/17 21:21; Start 07/15/17 at 21:00 Sodium Chloride 1,000 ml @ 124 mls/hr Q8H4M IV Last administered on 07/17/17 11:14; Start 07/15/17 at 20:14 Sodium Chloride (NS Flush) 2 ml UNSCH PRN .XX FLUSH AFTER USING IV ACCESS; Start 07/15/17 at 20:15 Sodium Chloride (NS Flush) 2 ml BID .XX Last administered on 07/17/17 09:43; Start 07/15/17 at 21:00 Acetaminophen (Tylenol) 650 mg Q6H PRN PO PAIN 1-10 AND/OR FEVER >101F Last administered on 07/17/17 02:19; Start 07/15/17 at 20:15 Famotidine (Pepcid Inj) 20 mg Q12HR IV PUSH Last administered on 07/16/17 08: 02; Start 07/15/17 at 21:00; Stop 07/16/17 at 14:29; Status DC Ondansetron HCl (Zofran Inj) 4 mg Q6H PRN IV NAUSEA OR VOMITING; Start at 20:15 Zolpidem Tartrate (Ambien) 5 mg HS PRN PO INSOMNIA; Start 07/15/17 at 20:15 Albuterol/ Ipratropium (Duoneb Neb) 1 ampule Q2HR NEB PRN INH WHEEZING; Start 07/15/17 at 20:15 Heparin Sodium (Porcine) (Heparin Inj) 5,000 units Q12H SQ Last administered on 07/17/17 09:43; Start 07/15/17 at 20:15 Miscellaneous Information 1 [id number] XX ; Start 07/15/17 at 20:15 Chlorhexidine Gluconate (Chlorhexidine 2% Cloth) 3 pack Taper DAILY@04 TOP Last administered on 07/16/17 23:08; Start 07/16/17 at 04:00; Stop 07/12/18 at 03:59 Chlorhexidine Gluconate (Chlorhexidine 2% Cloth) 3 pack UNSCH PRN TOP HYGIENIC CARE; Start 07/15/17 at 20:15 Senna/Docusate Sodium (Annetta-Colace) 1 tab BID PO Last administered on 09:44; Start 07/15/17 at 21:00 Magnesium Hydroxide (Milk Of Magnesia Liq) 30 ml Q12H PRN PO MILD - MODERATE CONSTIPATION; Start 07/15/17 at 20:15 Sennosides (Senokot) 17.2 mg Q12H PRN PO MODERATE - SEVERE CONSTIPATION; Start 07/15/17 at 20:15 Bisacodyl (Dulcolax Supp) 10 mg DAILY PRN RECTAL SEVERE CONSITIPATION; Start at 20:15 Lactulose (Lactulose Liq) 30 ml DAILY PRN PO SEVERE CONSITIPATION; Start at 20:15 Dexamethasone Sodium Phosphate (Decadron Inj) 4 mg Q6H IV Last administered on 07/15/17 21:01; Start 07/15/17 at 20:30; Stop 07/16/17 at 00:03; Status DC Vancomycin HCl 1250 mg/Sodium Chloride 262.5 ml @ 250 mls/hr ONCE ONCE IV ; Start 07/15/17 at 21:30; Stop 07/15/17 at 22:32; Status UNV Pharmacy Profile Note 0 ml @ 0 mls/hr UNSCH OTHER ; Start 07/15/17 at 20:30; Stop 07/16/17 at 15:54; Status DC Ampicillin Sodium 2000 mg/Sodium Chloride 100 ml @ 300 mls/hr Q4H IV Last administered on 07/16/17 12:43; Start 07/15/17 at 21:00; Stop 07/16/17 at 15:54 ; Status DC Ceftazidime 2000 mg/Sodium Chloride 100 ml @ 200 mls/hr Q12H IV Last administered on 07/16/17 08:03; Start 07/16/17 at 08:00; Stop 07/16/17 at 15:54 ; Status DC Sodium Chloride 1,000 ml @ 1,000 mls/hr Q1H ONCE IV Last administered on 22:07; Start 07/15/17 at 20:21; Stop 07/15/17 at 21:20; Status DC Sodium Chloride 1,000 ml @ 1,000 mls/hr Q1H ONCE IV Last administered on 20:51; Start 07/15/17 at 20:21; Stop 07/15/17 at 21:20; Status DC Sodium Chloride 100 ml @ 1,000 mls/hr Q6M ONCE IV Last administered on 20:51; Start 07/15/17 at 20:21; Stop 07/15/17 at 20:28; Status DC Influenza Virus Vaccine (Flu (Quadrivalent) Vaccine Inj) 0.5 ml ONCE ONCE IM ; Start 07/17/17 at 10:00; Stop 07/17/17 at 10:01; Status Cancel Sodium Chloride 250 ml @ 15 mls/hr ONCE ONCE IV Last administered on 10:15; Start 07/16/17 at 10:15; Stop 07/17/17 at 02:54; Status DC Acetaminophen (Tylenol) 650 mg Q4H PRN PO SEE LABEL COMMENTS; Start 07/16/17 at 10:15; Stop 07/17/17 at 10:14; Status DC Diphenhydramine HCl (Benadryl) 25 mg Q4H PRN PO SEE LABEL COMMENTS; Start 07/16 at 10:15; Stop 07/17/17 at 10:14; Status DC Famotidine (Pepcid Inj) 10 mg Q12HR IV PUSH Last administered on 07/17/17 09: 44; Start 07/17/17 at 09:00 Miscellaneous Medication (ASP Crit: Doc ESBL, MDR A baumannii or P aer) 1 UNSCH X1 PRN .XX PHARMACY DOCUMENTATION; Start 8/27/17 at 16:00; Stop 07/17/17 at 15 :59 Miscellaneous Medication ([facility] Pharmacy Information) 1 UNSCH X1 PRN XX PHARMACY DOCUMENTATION; Start 07/16/17 at 16:00; Stop 07/17/17 at 15:59 Meropenem 500 mg/ Sodium Chloride 100 ml @ 200 mls/hr Q12H IV Last administered on 07/17/17 04:18; Start 07/16/17 at 17:00 Lorazepam (Ativan Inj) 2 mg STK-MED ONCE .ROUTE Last administered on 07/17/17 08:10; Start 07/17/17 at 08:03; Stop 07/17/17 at 08:04; Status DC Haloperidol Lactate (Haldol Inj) 5 mg NOW ONCE IV ; Start 07/17/17 at 09:00; Stop 07/17/17 at 09:01; Status DC Lorazepam (Ativan Inj) 1 mg Q4H PRN IV PUSH agitation; Start 07/17/17 at 14:15 ; Status UNV A/P Assessment and Plan Altered mental status -due to sepsis. -Questionable altered mental status today. I'm not sure since I only observed patient for 2 days but it seems more that patient may have a psych component. -Continue to monitor. -Due to increase harm to himself and staff will keep restraints until eval by Psych. Severe sepsis due to UTI/bacteremia - CT head negative, LP negative. Urine culture ESBL positive. Blood culture I/4 E Coli. - ID consulted and previous ampicillin/ceftazidime was discontinued -Patient now on meropenem per infectious disease. Arthritis - Hold NSAIDs and methotrexate due to SIRS and acute kidney injury - Resume when above results Acute kidney injury - IV fluid hydration. IMPROVING. - Avoid nephrotoxin - Monitor creatinine and urine output - pending renal ultrasound Hypertension - lisinopril held due to acute kidney injury - Hydralazine when necessary to keep SBP less than 160 BPH - Flomax Anemia-normocytic normochromic -Labs reviewed most likely secondary to iron deficiency due to kidney disease. Improved. Continue monitor. DVT GI prophylaxis - Teds SCDs subcutaneous heparin and Pepcid Dealt with patient's nurse the bedside. Discharge Planning No indication for patient to stay and [facility]. Transfer out of the [facility]. Noemy Diaz MD Jul 17, 2017 14:22
--- NOTE | 2017-07-17 14:37 | PD.ONC.PN ---
Subjective Subjective Remarks patient much more alert and speech fluent but his conversations remain odd. Objective Data Date Time Temp Pulse Resp B/P (MAP) Pulse Ox O2 Delivery O2 Flow Rate FiO2 07/17/17 12:00 97.9 84 30 148/81 (103) 96 07/17/17 12:00 84 07/17/17 10:00 78 07/17/17 08:00 74 07/17/17 08:00 98.4 74 17 130/84 (99) 99 07/17/17 07:41 100 21 07/17/17 07:00 100 Room Air 07/17/17 06:00 75 07/17/17 04:00 98.2 82 18 132/92 (105) 97 07/17/17 04:00 82 07/17/17 02:00 80 07/17/17 00:00 83 07/17/17 00:00 98.8 83 18 124/79 (94) 97 07/16/17 22:00 92 07/16/17 20:00 98.8 92 18 143/82 (102) 99 07/16/17 20:00 87 07/16/17 19:00 100 Room Air 07/16/17 18:00 61 07/16/17 16:00 98.2 78 21 116/62 (80) 96 07/16/17 16:00 78 07/16/17 14:54 98.7 91 19 115/78 (90) 100 07/17/17 07/17/17 07/17/17 06:59 14:59 22:59 Intake Total 2320 ml 1000 ml Output Total 1000 ml Balance 1320 ml 1000 ml Result Diagram: 07/17/17 0828 07/16/17 0524 Laboratory Results Laboratory Tests Test 07/16/17 19:25 07/17/17 08:28 Hemoglobin 8.7 GM/DL 9.0 GM/DL Hematocrit 27.6 % 28.0 % Hepatitis A IgM Antibody NEGATIVE Hepatitis B Surface Antigen NEGATIVE Hepatitis B Core IgM Antibody NEGATIVE Hepatitis C Antibody NEGATIVE White Blood Count 17.3 TH/MM3 Red Blood Count 3.12 MIL/MM3 Mean Corpuscular Volume 89.8 FL Mean Corpuscular Hemoglobin 28.8 PG Mean Corpuscular Hemoglobin Concent 32.1 % Red Cell Distribution Width 18.7 % Platelet Count 400 TH/MM3 Mean Platelet Volume 8.0 FL Neutrophils (%) (Auto) 91.8 % Lymphocytes (%) (Auto) 3.8 % Monocytes (%) (Auto) 4.2 % Eosinophils (%) (Auto) 0.0 % Basophils (%) (Auto) 0.2 % Neutrophils # (Auto) 15.9 TH/MM3 Lymphocytes # (Auto) 0.6 TH/MM3 Monocytes # (Auto) 0.7 TH/MM3 Eosinophils # (Auto) 0.0 TH/MM3 Basophils # (Auto) 0.0 TH/MM3 CBC Comment AUTO DIFF Differential Comment AUTO DIFF CONFIRMED Toxic Granulation 1+ Item Value Date Time C-Reactive Protein 24.90 MG/DL H 07/16/17 1330 Vitamin B12 Level 837 PG/ML 07/16/17 1330 Folate 15.9 NG/ML 07/16/17 1330 Ferritin 2281 NG/ML H 07/16/17 1330 Percent Iron Saturation 30.8 % 07/16/17 1330 Total Iron Binding Capacity 153 MCG/DL L 07/16/17 1330 Iron Level 47 MCG/DL L 07/16/17 1330 Culture Results Microbiology Date/Time Source Procedure Growth Status 07/17/17 04:41 Blood Peripheral Aerobic Blood Culture Pending Received 07/17/17 04:41 Blood Peripheral Anaerobic Blood Culture Pending Received 07/17/17 04:35 Blood Peripheral Aerobic Blood Culture Pending Received 07/17/17 04:35 Blood Peripheral Anaerobic Blood Culture Pending Received 07/15/17 21:20 Blood Arterial Line Aerobic Blood Culture - Preliminary NO GROWTH IN 2 DAYS Resulted 07/15/17 21:20 Blood Arterial Line Anaerobic Blood Culture - Preliminary NO GROWTH IN 2 DAYS Resulted 07/15/17 17:40 Blood Peripheral Aerobic Blood Culture - Preliminary NO GROWTH IN 2 DAYS Resulted 07/15/17 17:40 Anaerobic Blood Culture - Preliminary Escherichia Coli Resulted 07/15/17 17:36 Blood Peripheral Aerobic Blood Culture - Preliminary NO GROWTH IN 2 DAYS Resulted 07/15/17 17:36 Blood Peripheral Anaerobic Blood Culture - Preliminary NO GROWTH IN 2 DAYS Resulted 07/15/17 18:45 Cerebral Spinal Fluid Lumbar Puncture Fungal Smear - Final NO FUNGAL ELEMENTS SEEN. Resulted 07/15/17 18:45 Cerebral Spinal Fluid Lumbar Puncture Fungal Culture Pending Resulted 07/15/17 18:45 Cerebral Spinal Fluid Lumbar Puncture Acid Fast Stain Pending Received 07/15/17 18:45 Cerebral Spinal Fluid Lumbar Puncture Mycobacterial Culture Pending Received 07/15/17 18:45 Cerebral Spinal Fluid Lumbar Puncture Gram Stain - Final Resulted 07/15/17 18:45 Cerebral Spinal Fluid Lumbar Puncture CSF Culture - Preliminary NO GROWTH IN 48 HOURS. Resulted 07/16/17 23:00 Sputum Expectorated Sputum Gram Stain Pending Received 07/16/17 23:00 Sputum Expectorated Sputum Sputum Culture Pending Received 07/15/17 17:50 Urine Clean Catch Urine Culture - Final Escherichia Coli Esbl Positive Complete Administered Medications Medications (Trade) Dose Ordered Sig/Víctor Route PRN Reason Start Time Stop Time Status Last Admin Dose Admin Lorazepam (Ativan) 0.5 mg DAILY PRN PO ANXIETY 07/15/17 20:15 07/17/17 02:18 Tamsulosin HCl (Flomax) 0.4 mg HS PO 07/15/17 21:00 07/16/17 21:21 Sodium Chloride 1,000 ml @ 124 mls/hr Q8H4M IV 07/15/17 20:14 07/17/17 11:14 Sodium Chloride (NS Flush) 2 ml BID .XX 07/15/17 21:00 07/17/17 09:43 Acetaminophen (Tylenol) 650 mg Q6H PRN PO PAIN 1-10 AND/OR FEVER >101F 07/15/17 20:15 07/17/17 02:19 Heparin Sodium (Porcine) (Heparin Inj) 5,000 units Q12H SQ 07/15/17 20:15 07/17/17 09:43 Chlorhexidine Gluconate (Chlorhexidine 2% Cloth) 3 pack Taper DAILY@04 TOP 07/16/17 04:00 07/12/18 03:59 07/16/17 23:08 Senna/Docusate Sodium (Annetta-Colace) 1 tab BID PO 07/15/17 21:00 07/17/17 09:44 Famotidine (Pepcid Inj) 10 mg Q12HR IV PUSH 07/17/17 09:00 07/17/17 09:44 Meropenem 500 mg/ Sodium Chloride 100 ml @ 200 mls/hr Q12H IV 07/16/17 17:00 07/17/17 04:18 Objective Remarks GENERAL: Well-nourished, well-developed patient. SKIN: Warm and dry. HEAD: Normocephalic. EYES: No scleral icterus. No injection or drainage. NECK: Supple, trachea midline. No JVD or lymphadenopathy. LYMPHATIC: No adenopathy. CARDIOVASCULAR: Regular rate and rhythm without murmurs. RESPIRATORY: Breath sounds equal bilaterally. No accessory muscle use. GASTROINTESTINAL: Abdomen soft, non-tender, nondistended. EXTREMITIES: No cyanosis, or edema. MUSCULOSKELETAL: Adequate muscle tone. NEUROLOGICAL: No obvious focal deficit. Awake, alert, and oriented x3. PSYCHIATRIC: talks about his mother and has little insight into events. worried about loosing his job and I explained to him we would be happy to explain to his employer that he is hospitalized and not delinquent . Assessment/Plan Assessment 1: suspect that anemia is secondary and not primary event give the sepsis, elevated CRP, sed rate >140,. The elevated ferritin is an acute phase reactant as if it was due to hemochromatosis the saturation would be greater then 50%. At the present time will follow cbc and when creatinine normal would like to do CT of ABD and pelvis as his presentation is unusual. cognitive function better. Kerwin Degroot MD Jul 17, 2017 14:37
--- NOTE | 2017-07-17 17:29 | PD.PSY.CON ---
Provisional Diagnosis Admission Date Jul 15, 2017 at 19:33 [place] I. Unspecified depressive dso [place] II. deferred [place] III. HTN, BPH, Anemia, recent sepsis secondary to UTI, ALMA DELIA [place] IV. limited social support [place] V. 50 History of Present Illness Service Psychiatry Consult Requested By Gayle Bruno MD Reason for Consult depression, anxiety with pressured speech Primary Care Physician Unknown HPI Patient is a 61 y/o man, single, domiciled alone in [place], past psychiatric history of depression as per pt, no prior psychiatric hospitalizations, no prior suicide attempts or self injurious behavior, who was admitted to the medical floor for management of severe sepsis secondary to UTI, ALMA DELIA, who during hospitalization request for evaluation by psychiatry consult service of depression and anxiety with noted pressured speech was requested. As per discussion with nursing staff, patient earlier today was agitated and given lorazepam and put in restraints as he was found to be confused and attempting to get out of bed a pulling out lines. It was also reported that the patient at that time was not making sense, having visual hallucinations of bears in the room but by noon today was more coherent but tangential. Patient was found lying on hospital bed, calm and cooperative with interview, noted to be tearful at times when recalling the passing of his father. Patient states that he is feeling "better" but does not recall some of the events of his admission. He states recalling having felt dizzy in his home and having passed out and remembering being transported by EMS but unable to recall many events thereafter. He states knowing that he is in the hospital but unsure of which one. He states that he is unsure of what he is being treated for but recalls having been visited by sister and spoken to mother over the phone. He reports some depressive symptoms for the past couple of weeks (decreased sleep, appetite , energy and concentration with depressed mood at times) but denies having had any suicidal thoughts or feeling helpless or hopeless. He denies any manic or psychotic symptoms in the past or currently. Currently stressors include trying to sell his mother's home with plans of having her stay with him, feeling uncomfortable with having her mother in his home while she doesn't approve of his sexuality, and worried about his employ. He reports feeling "ok " at this time, denies suicidal, homicidal ideations, perceptual disturbances or delusions at time of interview. Patient was oriented to person, place ( hospital but unsure of which one), and date but not oriented to situation. Patient had difficulty with attention and concentration with impairment of recent memory; immediate and remote memory intact. Review of Systems Except as stated in HPI: all other systems reviewed are Neg Past Family Social History Coded Allergies: No Known Allergies (Verified Allergy, Unknown, 07/15/17) Unable to Assess (Verified Allergy, Unknown, 07/15/17) Reported Medications Lorazepam (Lorazepam) 0.5 Mg Tab, 0.5 MG PO DAILY Y for ANXIETY, TAB 0 Refills 07/15/17 Tramadol (Tramadol) 50 Mg Tab, 50 MG PO Q4H Y for PAIN, TAB 0 Refills 07/15/17 Etodolac (Etodolac) 400 Mg Tab, 400 MG PO BID Y for PAIN SCALE 4 TO 10, TAB 0 Refills Take with food. 07/15/17 Methotrexate (Methotrexate) 2.5 Mg Tab, 2.5 MG PO DAILY, TAB 0 Refills 07/15/17 Diphenoxylate-Atropine (Lomotil) 2.5-0.025 Mg Tab, 1 TAB PO Q6H Y for DIARRHEA, TAB 0 Refills 07/15/17 Lisinopril (Lisinopril) 10 Mg Tab, 10 MG PO DAILY, #30 TAB 0 Refills 07/15/17 Tamsulosin (Flomax) 0.4 Mg Cap, 0.4 MG PO HS for Manage Prostate Problems, #30 CAP 0 Refills 07/15/17 Current Medications Medications (Trade) Dose Ordered Sig/Víctor Route Start Time Stop Time Status Last Admin (Ativan) 0.5 mg DAILY PRN PO 07/15/17 20:15 07/17/17 02:18 (Flomax) 0.4 mg HS PO 07/15/17 21:00 07/16/17 21:21 Sodium Chloride 1,000 ml @ 124 mls/hr Q8H4M IV 07/15/17 20:14 07/17/17 11:14 (NS Flush) 2 ml UNSCH PRN .XX 07/15/17 20:15 (NS Flush) 2 ml BID .XX 07/15/17 21:00 07/17/17 09:43 (Tylenol) 650 mg Q6H PRN PO 07/15/17 20:15 07/17/17 02:19 (Zofran Inj) 4 mg Q6H PRN IV 07/15/17 20:15 (Ambien) 5 mg HS PRN PO 07/15/17 20:15 (Duoneb Neb) 1 ampule Q2HR NEB PRN INH 07/15/17 20:15 (Heparin Inj) 5,000 units Q12H SQ 07/15/17 20:15 07/17/17 09:43 Miscellaneous Information 1 Q361D XX 07/15/17 20:15 (Chlorhexidine 2% Cloth) 3 pack Taper DAILY@04 TOP 07/16/17 04:00 07/12/18 03:59 07/16/17 23:08 (Chlorhexidine 2% Cloth) 3 pack UNSCH PRN TOP 07/15/17 20:15 (Annetta-Colace) 1 tab BID PO 07/15/17 21:00 07/17/17 09:44 (Milk Of Magnesia Liq) 30 ml Q12H PRN PO 07/15/17 20:15 (Senokot) 17.2 mg Q12H PRN PO 07/15/17 20:15 (Dulcolax Supp) 10 mg DAILY PRN RECTAL 07/15/17 20:15 (Lactulose Liq) 30 ml DAILY PRN PO 07/15/17 20:15 (Pepcid Inj) 10 mg Q12HR IV PUSH 07/17/17 09:00 07/17/17 09:44 Meropenem 500 mg/ Sodium Chloride 100 ml @ 200 mls/hr Q12H IV 07/16/17 17:00 07/17/17 04:18 (Ativan Inj) 1 mg Q4H PRN IV PUSH 07/17/17 14:15 Social History single, employed, living alone, highest education: Associate degree Patient's Strengths (min. 2) verbal, communicative Physical Exam Found in no acute distress, no noted gross motor abnormalites, no psychomotor agitation or retardation, no signs of EPS. Vital Signs Vital Signs Date Time Temp Pulse Resp B/P (MAP) Pulse Ox O2 Delivery O2 Flow Rate FiO2 07/17/17 16:06 98.3 89 20 132/80 (97) 100 07/17/17 07:41 21 07/17/17 07:00 Room Air 07/15/17 21:00 2.00 I/O 07/17/17 07/17/17 07/18/17 08:00 16:00 00:00 Intake Total 2320 ml 1000 ml Output Total 1000 ml Balance 1320 ml 1000 ml Lab Results Test 07/16/17 19:25 07/17/17 08:28 Hemoglobin 8.7 GM/DL 9.0 GM/DL Hematocrit 27.6 % 28.0 % Rapid Plasma Reagin NON-REACTIVE Hepatitis A IgM Antibody NEGATIVE Hepatitis B Surface Antigen NEGATIVE Hepatitis B Core IgM Antibody NEGATIVE Hepatitis C Antibody NEGATIVE White Blood Count 17.3 TH/MM3 Red Blood Count 3.12 MIL/MM3 Mean Corpuscular Volume 89.8 FL Mean Corpuscular Hemoglobin 28.8 PG Mean Corpuscular Hemoglobin Concent 32.1 % Red Cell Distribution Width 18.7 % Platelet Count 400 TH/MM3 Mean Platelet Volume 8.0 FL Neutrophils (%) (Auto) 91.8 % Lymphocytes (%) (Auto) 3.8 % Monocytes (%) (Auto) 4.2 % Eosinophils (%) (Auto) 0.0 % Basophils (%) (Auto) 0.2 % Neutrophils # (Auto) 15.9 TH/MM3 Lymphocytes # (Auto) 0.6 TH/MM3 Monocytes # (Auto) 0.7 TH/MM3 Eosinophils # (Auto) 0.0 TH/MM3 Basophils # (Auto) 0.0 TH/MM3 CBC Comment AUTO DIFF Differential Comment AUTO DIFF CONFIRMED Toxic Granulation 1+ Date/Time Source Procedure Growth Status 07/17/17 04:41 Blood Peripheral Aerobic Blood Culture Pending Received 07/17/17 04:41 Blood Peripheral Anaerobic Blood Culture Pending Received 07/15/17 18:45 Cerebral Spinal Fluid Lumbar Puncture Fungal Smear - Final NO FUNGAL ELEMENTS SEEN. Resulted 07/15/17 18:45 Cerebral Spinal Fluid Lumbar Puncture Fungal Culture Pending Resulted 07/17/17 14:45 Stool Stool Stool Occult Blood (MARIA TERESA) Pending Received 07/16/17 23:00 Sputum Expectorated Sputum Gram Stain - Final Resulted 07/16/17 23:00 Sputum Expectorated Sputum Sputum Culture Pending Resulted 07/15/17 17:50 Urine Clean Catch Urine Culture - Final Escherichia Coli Esbl Positive Complete Mental Status Examination Appearance Appears stated age, in hospital gown, lying on hospital bed, initially guarded but later able to engage in interview, fair eye contact Speech: Unremarkable Orientation: Person, Place (hosptial (but did not know which one)), Date Memory: Remote Thought Process: Logical, Organized Thought Content: Unremarkable Language fluent and spontaneous Fund of Knowledge average Hallucination Type: None Attention and Concentration: Abnormal Suicidal Ideation: No Previous Suicide Attempts: No Homicidal Ideation: No Previous Homicide Attempts: No Insight: Fair (aware he required medical services) Judgment: WNL Affect: Other (guarded but tearful at times) Mood: Other ("ok") Assessment & Plan Problem List: (1) Delirium due to general medical condition ICD Codes: F05 - Delirium due to known physiological condition Assessment & Plan Patient is a 61 y/o man with a history of depression managed by his primary care doctor who was admitted to the medical floor for management of severe sepsis secondary to UTI and ALMA DELIA, during his admission was noted to have had pressured speech, with concerns of depression and anxiety by medical team which psychiatry was consulted for evaluation. Patient at this time has history of depression which has been managed by PCP with antidepressant medications that is unknown at this time. Upon evaluation patient was noted to have had some depressive symptoms without evidence of symptoms of diana or psychosis at this time. Depressive symptoms likely related to his current psychosocial stressors (work, family dynamics with mother, recent passing of his father) which does not require inpatient level of care at this time for the same but would benefit from referral to outpatient mental health provider for further services upon discharge. Report of patient recent episode of agitation, confusion, visual hallucinations and current difficulty with memory/attention/ concentration likely secondary to delirium due to current medical issues which can wax and wane and likely stabilize once medical issues stabilize as well. No acute psychiatric intervention needed at this time. Patient may be referred to outpatient mental health clinic for follow up. Consult appreciated. Carrington Euceda MD Jul 17, 2017 17:29
[2017-07-17] MEDS: LORazepam 2 MG/ML VIAL IV PUSH PRN (21:39)
[2017-07-17] MEDS: TAMSULOSIN HCL 0.4 MG CAP PO SCH (21:42)
[2017-07-17] MEDS ORDERED: oxyCODONE/ACETAMINOPHEN 5 MG/325 MG TAB PO ONE (22:30)
[2017-07-18] VITALS (7 sets, daily range): BP systolic 112–142; BP diastolic 61–80; PULSE 69–102; RESP 17–20; TEMP 97.4–101.4; O2SAT 96–98
[2017-07-18] MEDS: CHLORHEXIDINE GLUCONATE 2 % 1 PACK (2 CLOTHS) TOP SCH (04:00)
[2017-07-18] MEDS: SODIUM CHLOR 0.9% 1000 ML INJ 1,000 ML IV SCH ×3 (04:59→21:17)
[2017-07-18] MEDS: LORazepam 2 MG/ML VIAL IV PUSH PRN (04:59)
[2017-07-18] MEDS: MEROPENEM INJ 500 MG in SODIUM CHLORIDE 0.9% INJ 100 ML IV SCH ×2 (05:41→18:35)
[2017-07-18] MEDS: SODIUM CHLORIDE 0.9% FLUSH 10 ML FLUSH SCH ×2 (09:00→21:17)
[2017-07-18 09:09] LABS: HSV 1,PCR Negative (Negative)
--- NOTE | 2017-07-18 09:58 | PD.ONC.PN ---
Subjective Subjective Remarks Afebrile Difficult to get information from patient He rec'd 1mg Ativan overnight Objective Data Date Time Temp Pulse Resp B/P (MAP) Pulse Ox O2 Delivery O2 Flow Rate FiO2 07/18/17 04:00 97.8 83 19 142/77 (98) 96 07/18/17 00:00 97.4 77 17 112/61 (78) 96 07/17/17 22:00 111 07/17/17 21:30 111 07/17/17 20:10 100.0 104 20 126/71 (89) 97 07/17/17 19:30 Room Air 07/17/17 18:00 88 07/17/17 16:06 98.3 89 20 132/80 (97) 100 07/17/17 16:00 89 07/17/17 14:00 70 07/17/17 12:00 97.9 84 30 148/81 (103) 96 07/17/17 12:00 84 07/17/17 10:00 78 07/18/17 07/18/17 07/18/17 07:00 15:00 23:00 Intake Total 740 ml Output Total 1400 ml Balance -660 ml Result Diagram: 07/17/17 0828 07/16/17 0524 Culture Results Microbiology Date/Time Source Procedure Growth Status 07/17/17 04:41 Blood Peripheral Aerobic Blood Culture Pending Received 07/17/17 04:41 Blood Peripheral Anaerobic Blood Culture Pending Received 07/17/17 04:35 Blood Peripheral Aerobic Blood Culture Pending Received 07/17/17 04:35 Blood Peripheral Anaerobic Blood Culture Pending Received 07/15/17 21:20 Blood Arterial Line Aerobic Blood Culture - Preliminary NO GROWTH IN 2 DAYS Resulted 07/15/17 21:20 Blood Arterial Line Anaerobic Blood Culture - Preliminary NO GROWTH IN 2 DAYS Resulted 07/15/17 17:40 Blood Peripheral Aerobic Blood Culture - Preliminary NO GROWTH IN 2 DAYS Resulted 07/15/17 17:40 Anaerobic Blood Culture - Preliminary Escherichia Coli Resulted 07/15/17 17:36 Blood Peripheral Aerobic Blood Culture - Preliminary NO GROWTH IN 2 DAYS Resulted 07/15/17 17:36 Blood Peripheral Anaerobic Blood Culture - Preliminary NO GROWTH IN 2 DAYS Resulted 07/15/17 18:45 Cerebral Spinal Fluid Lumbar Puncture Fungal Smear - Final NO FUNGAL ELEMENTS SEEN. Resulted 07/15/17 18:45 Cerebral Spinal Fluid Lumbar Puncture Fungal Culture Pending Resulted 07/15/17 18:45 Cerebral Spinal Fluid Lumbar Puncture Acid Fast Stain - Final NO ACID FAST BACILLI SEEN Resulted 07/15/17 18:45 Cerebral Spinal Fluid Lumbar Puncture Mycobacterial Culture Pending Resulted 07/15/17 18:45 Cerebral Spinal Fluid Lumbar Puncture Gram Stain - Final Complete 07/15/17 18:45 Cerebral Spinal Fluid Lumbar Puncture CSF Culture - Final NO GROWTH IN 72 HOURS Complete 07/17/17 14:45 Stool Stool Stool Occult Blood (MARIA TERESA) Pending Received 07/16/17 23:00 Sputum Expectorated Sputum Gram Stain - Final Resulted 07/16/17 23:00 Sputum Expectorated Sputum Sputum Culture Pending Resulted 07/15/17 17:50 Urine Clean Catch Urine Culture - Final Escherichia Coli Esbl Positive Complete Administered Medications Medications (Trade) Dose Ordered Sig/Víctor Route PRN Reason Start Time Stop Time Status Last Admin Dose Admin Lorazepam (Ativan) 0.5 mg DAILY PRN PO ANXIETY 07/15/17 20:15 07/17/17 02:18 Tamsulosin HCl (Flomax) 0.4 mg HS PO 07/15/17 21:00 07/17/17 21:42 Sodium Chloride 1,000 ml @ 124 mls/hr Q8H4M IV 07/15/17 20:14 07/18/17 04:59 Sodium Chloride (NS Flush) 2 ml BID .XX 07/15/17 21:00 07/17/17 21:42 Acetaminophen (Tylenol) 650 mg Q6H PRN PO PAIN 1-10 AND/OR FEVER >101F 07/15/17 20:15 07/17/17 21:39 Heparin Sodium (Porcine) (Heparin Inj) 5,000 units Q12H SQ 07/15/17 20:15 07/17/17 21:43 Chlorhexidine Gluconate (Chlorhexidine 2% Cloth) 3 pack Taper DAILY@04 TOP 07/16/17 04:00 07/12/18 03:59 07/16/17 23:08 Senna/Docusate Sodium (Annetta-Colace) 1 tab BID PO 07/15/17 21:00 07/17/17 09:44 Famotidine (Pepcid Inj) 10 mg Q12HR IV PUSH 07/17/17 09:00 07/17/17 21:42 Meropenem 500 mg/ Sodium Chloride 100 ml @ 200 mls/hr Q12H IV 07/16/17 17:00 07/18/17 05:41 Lorazepam (Ativan Inj) 1 mg Q4H PRN IV PUSH agitation 07/17/17 14:15 07/18/17 04:59 Objective Remarks GENERAL: Older male, resting in bed in no acute distress. He is somewhat lethargic this am. SKIN: Warm and dry. HEAD: Normocephalic. EYES: No injection or drainage. NECK: Supple, trachea midline. CARDIOVASCULAR: Regular rate and rhythm without murmurs. RESPIRATORY: Clear anteriorly. Breathing unlabored. GASTROINTESTINAL: Abdomen soft, non-tender, nondistended. EXTREMITIES: No cyanosis, or edema. SCD's to bilateral lower extremities NEUROLOGICAL: No obvious focal deficit. Moving all extremities. Assessment/Plan Assessment 1. With the patient's urosepsis and poor kidney function, it is likely that he is lethargic due to poor clearance of the Ativan as it is renally excreted. 2. Kidney function improved today but still abnormal; hopefully in the next day or so he will be able to have CT abdomen and pelvis with IV contrast to rule out other intra-abdominal processes. Attending Statement The exam, history, and the medical decision-making described in the above note were completed with the assistance of the mid-level provider. I reviewed and agree with the findings presented. I attest that I had a [id number] encounter with the patient on the same day, and personally performed and documented my assessment and findings in the medical record. patient's affect remain odd and I suspect that the Ativan may play a role in his confusion. Look forward to doing ct of abd and pelvis once renal function has recovered and still suspect anemia is a secondary event. He is difficult to evaluate as he presents information in an obscure and sometimes confusing manner. renal function improving quickly and sepsis resolving. Soraya Escobedo Jul 18, 2017 09:58 Kerwin Degroot MD Jul 18, 2017 19:28
[2017-07-18] MEDS: HEPARIN SODIUM - SQ 10,000 UNITS/ML VIAL SQ SCH ×2 (10:14→21:16)
[2017-07-18] MEDS: FAMOTIDINE 20 MG/2 ML VIAL IV PUSH SCH ×2 (10:15→21:16)
[2017-07-18] MEDS: DOCUSATE SODIUM 50 MG/SENNA 8.6 MG TAB PO SCH ×2 (10:17→21:00)
[2017-07-18 10:27] LABS: AUTOMATED NEUTROPHIL # 10.8 TH/MM3 (1.8-7.7); BASOPHIL % 0.3 % (0.0-2.0); EOSINOPHIL % 0.4 % (0.0-4.0); HEMATOCRIT 25.4 % (39.0-51.0); LYMPH % 4.8 % (9.0-44.0); LYMPHOCYTE # 0.6 TH/MM3 (1.0-4.8); MEAN CORPUSCULAR HEMOGLOBIN 28.4 PG (27.0-34.0); MEAN CORPUSCULAR HGB CONC 31.6 % (32.0-36.0); MONO % 7.3 % (0.0-8.0); NEUT % 87.2 % (16.0-70.0); PLATELET COUNT 387 TH/MM3 (150-450); RED BLOOD COUNT 2.83 MIL/MM3 (4.50-5.90); RED CELL DISTRIBUTION WIDTH 18.5 % (11.6-17.2); WHITE BLOOD COUNT 12.4 TH/MM3 (4.0-11.0)
[2017-07-18 10:38] LABS: HEMO FLAGS AUTO DIFF
[2017-07-18 11:01] LABS: ALKALINE PHOSPHATASE 62 U/L (45-117); ALT (GPT) 15 U/L (12-78); ANION GAP 9 MEQ/L (5-15); AST (GOT) 13 U/L (15-37); BICARBONATE 22.4 MEQ/L (21.0-32.0); BLOOD UREA NITROGEN 23 MG/DL (7-18); CHLORIDE 112 MEQ/L (98-107); GLOMERULAR FILTRATION RATE 49 ML/MIN (>89); POTASSIUM 4.2 MEQ/L (3.5-5.1); SODIUM (NA) 143 MEQ/L (136-145); TOTAL BILIRUBIN ADULT 0.4 MG/DL (0.2-1.0)
[2017-07-18 11:58] LABS: SCAN/DIFF AUTO DIFF CONFIRMED; TOXIC GRANULATION 2+ (NORMAL); TOXIC VACUOLATION PRESENT (NONE SEEN)
--- NOTE | 2017-07-18 14:42 | HHI.PR ---
Subjective Remarks Follow-up for bacteremia/sepsis in altered mental status Patient found talking on the phone. The phone conversation when I presented. Patient complaining about not giving enough fluid. He state" I was told that I need to drink a lot of water in order to help my kidneys but I haven't been given any water." Patient has 3 containers of water at his bedside and I showed them to patient. He then complained about being in bed and stated that he wants to walk around the hallway and get up. Otherwise patient has no other complaints. Dealt with patient's nurse who stated that patient received Ativan around 5 AM and that he was sleeping almost the entire morning because of Ativan. Objective Vitals Vital Signs Date Time Temp Pulse Resp B/P (MAP) Pulse Ox O2 Delivery O2 Flow Rate FiO2 07/18/17 08:00 Room Air 07/18/17 08:00 98.7 69 19 129/80 (96) 98 07/18/17 04:00 97.8 83 19 142/77 (98) 96 07/18/17 00:00 97.4 77 17 112/61 (78) 96 07/17/17 22:00 111 07/17/17 21:30 111 07/17/17 20:10 100.0 104 20 126/71 (89) 97 07/17/17 19:30 Room Air 07/17/17 18:00 88 07/17/17 16:06 98.3 89 20 132/80 (97) 100 07/17/17 16:00 89 I/O 07/17/17 07/17/17 07/17/17 07/18/17 07/18/17 07/18/17 07:00 15:00 23:00 07:00 15:00 23:00 Intake Total 2320 ml 1000 ml 2524 ml 740 ml Output Total 1000 ml 1450 ml 1400 ml Balance 1320 ml 1000 ml 1074 ml -660 ml Intake Oral 720 ml 1424 ml 740 ml IV Total 1600 ml 1000 ml 1100 ml Output Urine Total 1000 ml 1450 ml 1400 ml # Bowel Movements 0 1 1 Result Diagram: 07/18/1792907/18/1730 Objective Remarks GENERAL: in NAD sitting in bed c CARDIOVASCULAR: Regular rate and rhythm without murmurs, gallops, or rubs. Abd soft NDNT. No hepatosplenomegaly. Negative for any peritoneal signs. RESPIRATORY: Breath sounds equal bilaterally. No accessory muscle use. Psych: Flat affect. Medications and IVs Current Medications Sodium Chloride 1,000 ml @ 70 mls/hr [id number] ONCE IV Last administered on 07/15 19:55; Start 07/15/17 at 17:35; Stop 07/16/17 at 07:52; Status DC Sodium Chloride 1,000 ml @ 2,000 mls/hr Q30M ONCE IV Last administered on 07/15 18:54; Start 07/15/17 at 17:45; Stop 07/15/17 at 18:14; Status DC Sodium Chloride 1,000 ml @ 2,000 mls/hr Q30M ONCE IV Last administered on 07/15 18:53; Start 07/15/17 at 17:45; Stop 07/15/17 at 18:14; Status DC Vancomycin HCl 2250 mg/Sodium Chloride 522.5 ml @ 250 mls/hr ONCE ONCE IV Last administered on 07/15/17 21:00; Start 07/15/17 at 19:00; Stop 07/16/17 at 15:54; Status DC Ampicillin Sodium 2000 mg/Sodium Chloride 100 ml @ 300 mls/hr ONCE STAT IV Last administered on 07/15/17 18:37; Start 07/15/17 at 18:00; Stop 07/15/17 at 18:19; Status DC Ceftazidime 2000 mg/Sodium Chloride 100 ml @ 200 mls/hr ONCE STAT IV Last administered on 07/15/17 19:55; Start 07/15/17 at 18:00; Stop 07/15/17 at 18:29 ; Status DC Acyclovir Sodium 1000 mg/Sodium Chloride 150 ml @ 150 mls/hr ONCE ONCE IV Last administered on 07/15/17 20:50; Start 07/15/17 at 19:00; Stop 07/15/17 at 19:59; Status DC Acetaminophen (Tylenol Supp) 650 mg ONCE ONCE RECTAL Last administered on 07/15 18:38; Start 07/15/17 at 18:30; Stop 07/15/17 at 18:31; Status DC Lorazepam (Ativan) 0.5 mg DAILY PRN PO ANXIETY Last administered on 07/17/17 02:18; Start 07/15/17 at 20:15; Stop 07/18/17 at 14:32; Status DC Tamsulosin HCl (Flomax) 0.4 mg HS PO Last administered on 07/17/17 21:42; Start 07/15/17 at 21:00 Sodium Chloride 1,000 ml @ 124 mls/hr Q8H4M IV Last administered on 07/18/17 04:59; Start 07/15/17 at 20:14 Sodium Chloride (NS Flush) 2 ml UNSCH PRN .XX FLUSH AFTER USING IV ACCESS; Start 07/15/17 at 20:15 Sodium Chloride (NS Flush) 2 ml BID .XX Last administered on 07/17/17 21:42; Start 07/15/17 at 21:00 Acetaminophen (Tylenol) 650 mg Q6H PRN PO PAIN 1-10 AND/OR FEVER >101F Last administered on 07/17/17 21:39; Start 07/15/17 at 20:15 Famotidine (Pepcid Inj) 20 mg Q12HR IV PUSH Last administered on 07/16/17 08: 02; Start 07/15/17 at 21:00; Stop 07/16/17 at 14:29; Status DC Ondansetron HCl (Zofran Inj) 4 mg Q6H PRN IV NAUSEA OR VOMITING; Start at 20:15 Zolpidem Tartrate (Ambien) 5 mg HS PRN PO INSOMNIA; Start 07/15/17 at 20:15 Albuterol/ Ipratropium (Duoneb Neb) 1 ampule Q2HR NEB PRN INH WHEEZING; Start 07/15/17 at 20:15 Heparin Sodium (Porcine) (Heparin Inj) 5,000 units Q12H SQ Last administered on 07/18/17 10:14; Start 07/15/17 at 20:15 Miscellaneous Information 1 [id number] XX ; Start 07/15/17 at 20:15 Chlorhexidine Gluconate (Chlorhexidine 2% Cloth) 3 pack Taper DAILY@04 TOP Last administered on 07/16/17 23:08; Start 07/16/17 at 04:00; Stop 07/12/18 at 03:59 Chlorhexidine Gluconate (Chlorhexidine 2% Cloth) 3 pack UNSCH PRN TOP HYGIENIC CARE; Start 07/15/17 at 20:15 Senna/Docusate Sodium (Annetta-Colace) 1 tab BID PO Last administered on 10:17; Start 07/15/17 at 21:00 Magnesium Hydroxide (Milk Of Magnesia Liq) 30 ml Q12H PRN PO MILD - MODERATE CONSTIPATION; Start 07/15/17 at 20:15 Sennosides (Senokot) 17.2 mg Q12H PRN PO MODERATE - SEVERE CONSTIPATION; Start 07/15/17 at 20:15 Bisacodyl (Dulcolax Supp) 10 mg DAILY PRN RECTAL SEVERE CONSITIPATION; Start at 20:15 Lactulose (Lactulose Liq) 30 ml DAILY PRN PO SEVERE CONSITIPATION; Start at 20:15 Dexamethasone Sodium Phosphate (Decadron Inj) 4 mg Q6H IV Last administered on 07/15/17 21:01; Start 07/15/17 at 20:30; Stop 07/16/17 at 00:03; Status DC Vancomycin HCl 1250 mg/Sodium Chloride 262.5 ml @ 250 mls/hr ONCE ONCE IV ; Start 07/15/17 at 21:30; Stop 07/15/17 at 22:32; Status UNV Pharmacy Profile Note 0 ml @ 0 mls/hr UNSCH OTHER ; Start 07/15/17 at 20:30; Stop 07/16/17 at 15:54; Status DC Ampicillin Sodium 2000 mg/Sodium Chloride 100 ml @ 300 mls/hr Q4H IV Last administered on 07/16/17 12:43; Start 07/15/17 at 21:00; Stop 07/16/17 at 15:54 ; Status DC Ceftazidime 2000 mg/Sodium Chloride 100 ml @ 200 mls/hr Q12H IV Last administered on 07/16/17 08:03; Start 07/16/17 at 08:00; Stop 07/16/17 at 15:54 ; Status DC Sodium Chloride 1,000 ml @ 1,000 mls/hr Q1H ONCE IV Last administered on 22:07; Start 07/15/17 at 20:21; Stop 07/15/17 at 21:20; Status DC Sodium Chloride 1,000 ml @ 1,000 mls/hr Q1H ONCE IV Last administered on 20:51; Start 07/15/17 at 20:21; Stop 07/15/17 at 21:20; Status DC Sodium Chloride 100 ml @ 1,000 mls/hr Q6M ONCE IV Last administered on 20:51; Start 07/15/17 at 20:21; Stop 07/15/17 at 20:28; Status DC Influenza Virus Vaccine (Flu (Quadrivalent) Vaccine Inj) 0.5 ml ONCE ONCE IM ; Start 07/17/17 at 10:00; Stop 07/17/17 at 10:01; Status Cancel Sodium Chloride 250 ml @ 15 mls/hr ONCE ONCE IV Last administered on 10:15; Start 07/16/17 at 10:15; Stop 07/17/17 at 02:54; Status DC Acetaminophen (Tylenol) 650 mg Q4H PRN PO SEE LABEL COMMENTS; Start 07/16/17 at 10:15; Stop 07/17/17 at 10:14; Status DC Diphenhydramine HCl (Benadryl) 25 mg Q4H PRN PO SEE LABEL COMMENTS; Start 07/16 at 10:15; Stop 07/17/17 at 10:14; Status DC Famotidine (Pepcid Inj) 10 mg Q12HR IV PUSH Last administered on 07/18/17 10: 15; Start 07/17/17 at 09:00 Miscellaneous Medication (ASP Crit: Doc ESBL, MDR A baumannii or P aer) 1 UNSCH X1 PRN .XX PHARMACY DOCUMENTATION; Start 07/16/17 at 16:00; Stop 07/17/17 at 15 :59; Status DC Miscellaneous Medication ([facility] Information) 1 UNSCH X1 PRN XX PHARMACY DOCUMENTATION; Start 07/16/17 at 16:00; Stop 07/17/17 at 15:59; Status DC Meropenem 500 mg/ Sodium Chloride 100 ml @ 200 mls/hr Q12H IV Last administered on 07/18/17 05:41; Start 07/16/17 at 17:00 Lorazepam (Ativan Inj) 2 mg STK-MED ONCE .ROUTE Last administered on 07/17/17 08:10; Start 07/17/17 at 08:03; Stop 07/17/17 at 08:04; Status DC Haloperidol Lactate (Haldol Inj) 5 mg NOW ONCE IV ; Start 07/17/17 at 09:00; Stop 07/17/17 at 09:01; Status DC Lorazepam (Ativan Inj) 1 mg Q4H PRN IV PUSH agitation Last administered on 07/18 04:59; Start 07/17/17 at 14:15; Stop 07/18/17 at 14:32; Status DC Oxycodone/ Acetaminophen (Percocet 5-325 Mg) 1 tab ONCE ONCE PO Last administered on 07/18/17 03:29; Start 07/17/17 at 22:30; Stop 07/17/17 at 22:47 ; Status DC Meropenem 1000 mg/ Sodium Chloride 100 ml @ 200 mls/hr Q8H IV ; Start 07/18/17 at 17:00; Status Cancel A/P Assessment and Plan Altered mental status -due to sepsis. -Improved. -Continue to monitor. Severe sepsis due to UTI/bacteremia - CT head negative, LP negative. Urine culture ESBL positive. Blood culture I/4 ESBL positive - ID consulted and previous ampicillin/ceftazidime was discontinued -Patient now on meropenem per infectious disease. -CT scan abdomen and pelvis was ordered. Arthritis - Hold NSAIDs and methotrexate due to SIRS and acute kidney injury - Resume when above results -Will consult physical therapist. Acute kidney injury - IV fluid hydration. IMPROVING. - Avoid nephrotoxin - Monitor creatinine and urine output - Renal ultrasound shows 2 renal cysts. Hypertension - lisinopril held due to acute kidney injury - Hydralazine when necessary to keep SBP less than 160 BPH - Flomax Anemia-normocytic normochromic -Labs reviewed most likely secondary to iron deficiency due to kidney disease. Improved. Continue monitor. -Real Estate Investment Analyst is following. DVT GI prophylaxis - Teds SCDs subcutaneous heparin and Pepcid Noemy Diaz MD Jul 18, 2017 14:42
--- NOTE | 2017-07-18 15:25 | HHI.IDPN ---
Subjective Subjective Remarks Mr. Vargas is a 61-year-old white male with past medical history of rheumatoid arthritis was on methotrexate, osteoarthritis, prostatectomy enlargement reportedly benign. He also reports history of recurrent urinary tract infection is most recent urinary tract infection was several months back. He reports he is homosexual/MSM. Patient is an extremely poor historian and had to be redirected several times throughout the conversation. He has word finding difficulty as well as tangential thinking. Patient reports that he is visiting his mom to help her move to [place] where he lives. He was reportedly brought in by his mother as she found him confused and unaware of events. Reportedly when patient arrived to the emergency department he was completely nonverbal but had no neurological deficit and was not found to have any seizures. A stroke alert was called and patient was ruled out to have a stroke. Patient did have a lumbar puncture as well as a sepsis workup was initiated on admission. On 07/15/2017, hemoglobin 8.3, white count 15,000 and platelet count of 357,000, the differential was unremarkable. The following day, 07/16, hemoglobin 7, white count 12,600 and platelets 276,000, again with an unremarkable differential. He was found to be in renal failure with a BUN of 41, creatinine 3.7. Liver function tests are normal. On arrival, he had an elevated temperature of 101.7. Blood cultures are currently growing out gram-negative rods and he is on antibiotics. Chest x-ray on 07/15/2017 showing no acute cardiopulmonary disease. 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 Patient is in the ISC at the time of my visit with the patient. He's sitting in his bed has no neurological deficit. He's currently not on any pressors and is on room air. He has good urine output. Speech as described earlier. Blood cultures done on admission are positive for ESBL Escherichia coli based on Verigene testing. Urine cultures are positive for gram-negative rods. Patient is currently on Zosyn IV. Clinically he does not appear to be in overt sepsis and appears to have stabilized. Infectious disease is consulted for evaluation and management of gram-negative bacteremia. Overnight events reviewed. No fevers No rash No diarrhea ESBL in blood and urine Antibiotics Meropenem Lines Line sites with no e.o infection Past Medical History reviewed Allergies: Coded Allergies: No Known Allergies (Verified Allergy, Unknown, 07/15/17) Unable to Assess (Verified Allergy, Unknown, 07/15/17) Objective . Vital Signs Date Time Temp Pulse Resp B/P (MAP) Pulse Ox O2 Delivery O2 Flow Rate FiO2 07/18/17 12:00 98.6 102 19 120/69 (86) 98 07/18/17 08:00 Room Air 07/18/17 08:00 98.7 69 19 129/80 (96) 98 07/18/17 04:00 97.8 83 19 142/77 (98) 96 07/18/17 00:00 97.4 77 17 112/61 (78) 96 07/17/17 22:00 111 07/17/17 21:30 111 07/17/17 20:10 100.0 104 20 126/71 (89) 97 07/17/17 19:30 Room Air 07/17/17 18:00 88 07/17/17 16:06 98.3 89 20 132/80 (97) 100 07/17/17 16:00 89 . Laboratory Tests Test 07/16/17 19:25 07/17/17 08:28 07/18/17 09:30 Hemoglobin 8.7 GM/DL 9.0 GM/DL 8.0 GM/DL Hematocrit 27.6 % 28.0 % 25.4 % White Blood Count 17.3 TH/MM3 12.4 TH/MM3 Red Blood Count 3.12 MIL/MM3 2.83 MIL/MM3 Mean Corpuscular Volume 89.8 FL 90.0 FL Mean Corpuscular Hemoglobin 28.8 PG 28.4 PG Mean Corpuscular Hemoglobin Concent 32.1 % 31.6 % Red Cell Distribution Width 18.7 % 18.5 % Platelet Count 400 TH/MM3 387 TH/MM3 Mean Platelet Volume 8.0 FL 7.1 FL Neutrophils (%) (Auto) 91.8 % 87.2 % Lymphocytes (%) (Auto) 3.8 % 4.8 % Monocytes (%) (Auto) 4.2 % 7.3 % Eosinophils (%) (Auto) 0.0 % 0.4 % Basophils (%) (Auto) 0.2 % 0.3 % Neutrophils # (Auto) 15.9 TH/MM3 10.8 TH/MM3 Lymphocytes # (Auto) 0.6 TH/MM3 0.6 TH/MM3 Monocytes # (Auto) 0.7 TH/MM3 0.9 TH/MM3 Eosinophils # (Auto) 0.0 TH/MM3 0.0 TH/MM3 Basophils # (Auto) 0.0 TH/MM3 0.0 TH/MM3 CBC Comment AUTO DIFF AUTO DIFF Differential Comment AUTO DIFF CONFIRMED AUTO DIFF CONFIRMED Toxic Granulation 1+ 2+ Toxic Vacuolation PRESENT Laboratory Tests Test 07/18/17 09:30 Blood Urea Nitrogen 23 MG/DL Creatinine 1.45 MG/DL Random Glucose 77 MG/DL Total Protein 5.4 GM/DL Albumin 1.7 GM/DL Calcium Level 8.0 MG/DL Alkaline Phosphatase 62 U/L Aspartate Amino Transf (AST/SGOT) 13 U/L Alanine Aminotransferase (ALT/SGPT) 15 U/L Total Bilirubin 0.4 MG/DL Sodium Level 143 MEQ/L Potassium Level 4.2 MEQ/L Chloride Level 112 MEQ/L Carbon Dioxide Level 22.4 MEQ/L Anion Gap 9 MEQ/L Estimat Glomerular Filtration Rate 49 ML/MIN Microbiology Date/Time Source Procedure Growth Status 07/17/17 04:41 Blood Peripheral Aerobic Blood Culture - Preliminary NO GROWTH IN 1 DAY Resulted 07/17/17 04:41 Blood Peripheral Anaerobic Blood Culture - Preliminary NO GROWTH IN 1 DAY Resulted 07/17/17 04:35 Blood Peripheral Aerobic Blood Culture - Preliminary NO GROWTH IN 1 DAY Resulted 07/17/17 04:35 Blood Peripheral Anaerobic Blood Culture - Preliminary NO GROWTH IN 1 DAY Resulted 07/15/17 21:20 Blood Arterial Line Aerobic Blood Culture - Preliminary NO GROWTH IN 3 DAYS Resulted 07/15/17 21:20 Blood Arterial Line Anaerobic Blood Culture - Preliminary NO GROWTH IN 3 DAYS Resulted 07/15/17 17:40 Blood Peripheral Aerobic Blood Culture - Preliminary NO GROWTH IN 3 DAYS Resulted 07/15/17 17:40 Anaerobic Blood Culture - Final Escherichia Coli Esbl Positive Resulted 07/15/17 17:36 Blood Peripheral Aerobic Blood Culture - Preliminary NO GROWTH IN 3 DAYS Resulted 07/15/17 17:36 Blood Peripheral Anaerobic Blood Culture - Preliminary NO GROWTH IN 3 DAYS Resulted 07/15/17 18:45 Cerebral Spinal Fluid Lumbar Puncture Fungal Smear - Final NO FUNGAL ELEMENTS SEEN. Resulted 07/15/17 18:45 Cerebral Spinal Fluid Lumbar Puncture Fungal Culture Pending Resulted 07/15/17 18:45 Cerebral Spinal Fluid Lumbar Puncture Acid Fast Stain - Final NO ACID FAST BACILLI SEEN Resulted 07/15/17 18:45 Cerebral Spinal Fluid Lumbar Puncture Mycobacterial Culture Pending Resulted 07/15/17 18:45 Cerebral Spinal Fluid Lumbar Puncture Gram Stain - Final Complete 07/15/17 18:45 Cerebral Spinal Fluid Lumbar Puncture CSF Culture - Final NO GROWTH IN 72 HOURS Complete 07/17/17 14:45 Stool Stool Stool Occult Blood (MARIA TERESA) Pending Received 07/16/17 23:00 Sputum Expectorated Sputum Gram Stain - Final Resulted 07/16/17 23:00 Sputum Expectorated Sputum Sputum Culture Pending Resulted 07/15/17 17:50 Urine Clean Catch Urine Culture - Final Escherichia Coli Esbl Positive Complete Imaging Last Impressions Renal Ultrasound 07/16/17 0000 Signed Impressions: Service Date/Time: Sunday, July 16, 2017 17:25 - CONCLUSION: Two right renal cysts. Arron Mccain MD Head CT 07/15/17 0000 Signed Impressions: Service Date/Time: Saturday, July 15, 2017 17:36 - CONCLUSION: 1. 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 2. No acute hemorrhage, acute infarct, mass effect or extra axial fluid collections. Arron Mccain MD Chest X-Ray 07/15/17 0000 Signed Impressions: Service Date/Time: Saturday, July 15, 2017 19:34 - CONCLUSION: No acute disease. Arron Mccain MD Physical Exam GENERAL: This is a well-nourished, well-developed patient, in no apparent distress. SKIN: No rashes, ecchymoses or lesions. Cool and dry. HEAD: Atraumatic. Normocephalic. No temporal or scalp tenderness. EYES: Pupils equal round and reactive. Extraocular motions intact. No scleral icterus. No injection or drainage. ENT: Nose without bleeding, purulent drainage or septal hematoma. Throat without erythema, tonsillar hypertrophy or exudate. Uvula midline. Airway patent. NECK: Trachea midline. Supple, nontender, no meningeal signs. CARDIOVASCULAR: Regular rate and rhythm without murmurs, gallops, or rubs. RESPIRATORY: Clear to auscultation. Breath sounds equal bilaterally. No wheezes , rales, or rhonchi. GASTROINTESTINAL: Abdomen soft, non-tender, nondistended. MUSCULOSKELETAL: Extremities without clubbing, cyanosis, or edema. NEUROLOGICAL: Awake and alert. Speech pressurized. Word finding difficulty. Tangential thinking. No focal neuro deficit. Patient had to be redirected several times. Psych: cooperative IV line sites with no e.o infection. Assessment & Plan Remarks Sepsis present on admission likely sources UTI and bacteremia. Gram-negative bacteremia. Preliminary ID as ESBL Escherichia coli. Likely source UTI. Gram-negative valerio UTI. Prior history of recurrent UTIs, history of renal stones, history of prostate problems. History of silicon injections into the scrotum in the past. History of GI bleeding in the past. Anemia undergoing workup as well as status post blood transfusion. Acute and cephalic at the present on admission appears to have resolved except for the speech issues. Neurology evaluating the patient. Recommendations DC meropenem Start Ertapenem IV (ASP criteria: ESBL E.coli bacteremia based on Verigene testing) Follow cultures. Await blood cultures. If repeat BCX negative will formulate an outpt IV ABX plan. Follow clinically. Cultures reviewed with ESBL E.coli deescalate to Ertapenem IV once a day Reviewed Urology input. Reviewed Psych input and Neurology input notes. Discussed with RN. Critical thinking, decision making, MAR review, culture review, Dose adjustments , d.w multiple health care team members. Time in excess of 40 mins. d/w case management coordinator: will need IV antibiotic on discharge for 10 days or so depending on discharge date. Gayle Bruno MD Jul 18, 2017 15:25
[2017-07-18] MEDS ORDERED: MEROPENEM 1000 MG/NS 100 ML IV SCH ×2 (17:00)
[2017-07-18 19:04] LABS: CSF CRYPTOCOCCUS AG CONF ND (NOT DETECTD)
[2017-07-18] MEDS: TAMSULOSIN HCL 0.4 MG CAP PO SCH (21:16)
[2017-07-18] MEDS: ZOLPIDEM TARTRATE 5 MG TAB PO PRN (21:16)
[2017-07-19] VITALS (8 sets, daily range): BP systolic 122–132; BP diastolic 68–82; PULSE 57–88; RESP 17–20; TEMP 98.4–101.9; O2SAT 97–99
[2017-07-19] MEDS: ACETAMINOPHEN 325 MG TAB PO PRN ×4 (00:17→23:05)
[2017-07-19] MEDS: CHLORHEXIDINE GLUCONATE 2 % 1 PACK (2 CLOTHS) TOP SCH (04:00)
[2017-07-19] MEDS ORDERED: ERTAPENEM SODIUM 1000 MG VIAL IV SCH (05:00)
[2017-07-19] MEDS: SODIUM CHLOR 0.9% 1000 ML INJ 1,000 ML IV SCH ×3 (05:40→23:06)
[2017-07-19] MEDS: ERTAPENEM 1,000 MG/NS 100 ML IV SCH ×2 (05:40)
[2017-07-19 08:07] LABS: AUTOMATED NEUTROPHIL # 10.7 TH/MM3 (1.8-7.7); BASOPHIL % 0.2 % (0.0-2.0); EOSINOPHIL # 0.1 TH/MM3 (0-0.4); EOSINOPHIL % 0.9 % (0.0-4.0); HEMATOCRIT 27.6 % (39.0-51.0); LYMPH % 7.1 % (9.0-44.0); LYMPHOCYTE # 0.9 TH/MM3 (1.0-4.8); MEAN CELL VOLUME 91.2 FL (80.0-100.0); MEAN CORPUSCULAR HEMOGLOBIN 28.8 PG (27.0-34.0); MEAN CORPUSCULAR HGB CONC 31.6 % (32.0-36.0); MONO % 7.9 % (0.0-8.0); NEUT % 83.9 % (16.0-70.0); PLATELET COUNT 392 TH/MM3 (150-450); RED BLOOD COUNT 3.03 MIL/MM3 (4.50-5.90); RED CELL DISTRIBUTION WIDTH 18.7 % (11.6-17.2); WHITE BLOOD COUNT 12.8 TH/MM3 (4.0-11.0)
[2017-07-19 08:16] LABS: BICARBONATE 24.6 MEQ/L (21.0-32.0); POTASSIUM 3.8 MEQ/L (3.5-5.1)
[2017-07-19 08:23] LABS: HEMO FLAGS AUTO DIFF
[2017-07-19] MEDS: FAMOTIDINE 20 MG/2 ML VIAL IV PUSH SCH ×2 (08:53→23:03)
[2017-07-19] MEDS: HEPARIN SODIUM - SQ 10,000 UNITS/ML VIAL SQ SCH ×2 (08:53→23:04)
[2017-07-19] MEDS: DOCUSATE SODIUM 50 MG/SENNA 8.6 MG TAB PO SCH ×2 (08:53→21:00)
[2017-07-19] MEDS: SODIUM CHLORIDE 0.9% FLUSH 10 ML FLUSH SCH ×2 (08:53→23:04)
[2017-07-19 09:30] LABS: BANDS 2 % (0-6); EOSINOPHILS 1 % (0-4); METAMYELOCYTES 4 % (0-1); MYELOCYTES 7 % (0-0); NEUTROPHIL # MANUAL DIFF 11.1 TH/MM3 (1.8-7.7); POLYS (SEG NEUTROPHILS) 74 % (16-70); WBC DIFF SAMPLE 100
[2017-07-19 09:33] LABS: ACANTHOCYTES OCC (NORMAL); SCAN/DIFF FINAL DIFF MANUAL
--- NOTE | 2017-07-19 10:39 | PD.ONC.PN ---
Subjective Subjective Remarks Would like to have espinosa catheter removed Feeling better overall Objective Data Date Time Temp Pulse Resp B/P (MAP) Pulse Ox O2 Delivery O2 Flow Rate FiO2 07/19/17 08:00 98.8 75 17 122/74 (90) 97 07/19/17 04:00 98.5 80 20 123/76 (92) 98 07/19/17 00:00 101.9 88 20 132/82 (99) 98 07/18/17 20:00 Room Air 07/18/17 20:00 101.4 101 20 138/74 (95) 97 07/18/17 20:00 91 07/18/17 17:32 98 21 07/18/17 16:00 98.4 100 19 122/68 (86) 98 07/18/17 12:00 98.6 102 19 120/69 (86) 98 07/19/17 07/19/17 07/19/17 07:00 15:00 23:00 Intake Total 1007 ml Output Total 2600 ml Balance -1593 ml Result Diagram: 07/19/17 0646 07/19/17 0646 Laboratory Results Laboratory Tests Test 07/19/17 06:46 White Blood Count 12.8 TH/MM3 Red Blood Count 3.03 MIL/MM3 Hemoglobin 8.7 GM/DL Hematocrit 27.6 % Mean Corpuscular Volume 91.2 FL Mean Corpuscular Hemoglobin 28.8 PG Mean Corpuscular Hemoglobin Concent 31.6 % Red Cell Distribution Width 18.7 % Platelet Count 392 TH/MM3 Mean Platelet Volume 7.6 FL Neutrophils (%) (Auto) 83.9 % Lymphocytes (%) (Auto) 7.1 % Monocytes (%) (Auto) 7.9 % Eosinophils (%) (Auto) 0.9 % Basophils (%) (Auto) 0.2 % Neutrophils # (Auto) 10.7 TH/MM3 Lymphocytes # (Auto) 0.9 TH/MM3 Monocytes # (Auto) 1.0 TH/MM3 Eosinophils # (Auto) 0.1 TH/MM3 Basophils # (Auto) 0.0 TH/MM3 CBC Comment AUTO DIFF Differential Total Cells Counted 100 Neutrophils % (Manual) 74 % Band Neutrophils % 2 % Lymphocytes % 5 % Monocytes % 7 % Eosinophils % 1 % Neutrophils # (Manual) 11.1 TH/MM3 Metamyelocytes 4 % Myelocytes 7 % Differential Comment FINAL DIFF MANUAL Acanthocytes OCC Blood Urea Nitrogen 18 MG/DL Creatinine 1.27 MG/DL Random Glucose 95 MG/DL Calcium Level 8.3 MG/DL Sodium Level 140 MEQ/L Potassium Level 3.8 MEQ/L Chloride Level 108 MEQ/L Carbon Dioxide Level 24.6 MEQ/L Anion Gap 7 MEQ/L Estimat Glomerular Filtration Rate 57 ML/MIN Culture Results Microbiology Date/Time Source Procedure Growth Status 07/17/17 04:41 Blood Peripheral Aerobic Blood Culture - Preliminary NO GROWTH IN 1 DAY Resulted 07/17/17 04:41 Blood Peripheral Anaerobic Blood Culture - Preliminary NO GROWTH IN 1 DAY Resulted 07/17/17 04:35 Blood Peripheral Aerobic Blood Culture - Preliminary NO GROWTH IN 1 DAY Resulted 07/17/17 04:35 Blood Peripheral Anaerobic Blood Culture - Preliminary NO GROWTH IN 1 DAY Resulted 07/17/17 14:45 Stool Stool Stool Occult Blood (MARIA TERESA) Pending Received 07/16/17 23:00 Sputum Expectorated Sputum Gram Stain - Final Resulted 07/16/17 23:00 Sputum Expectorated Sputum Sputum Culture - Preliminary RARE GROWTH NORMAL RESPIRATORY [id number] ... Resulted Administered Medications Medications (Trade) Dose Ordered Sig/Víctor Route PRN Reason Start Time Stop Time Status Last Admin Dose Admin Tamsulosin HCl (Flomax) 0.4 mg HS PO 07/15/17 21:00 07/18/17 21:16 Sodium Chloride 1,000 ml @ 124 mls/hr Q8H4M IV 07/15/17 20:14 07/19/17 05:40 Sodium Chloride (NS Flush) 2 ml BID .XX 07/15/17 21:00 07/19/17 08:53 Acetaminophen (Tylenol) 650 mg Q6H PRN PO PAIN 1-10 AND/OR FEVER >101F 07/15/17 20:15 07/19/17 09:30 Zolpidem Tartrate (Ambien) 5 mg HS PRN PO INSOMNIA 07/15/17 20:15 07/18/17 21:16 Heparin Sodium (Porcine) (Heparin Inj) 5,000 units Q12H SQ 07/15/17 20:15 07/19/17 08:53 Chlorhexidine Gluconate (Chlorhexidine 2% Cloth) 3 pack Taper DAILY@04 TOP 07/16/17 04:00 07/12/18 03:59 07/16/17 23:08 Senna/Docusate Sodium (Annetta-Colace) 1 tab BID PO 07/15/17 21:00 07/18/17 10:17 Famotidine (Pepcid Inj) 10 mg Q12HR IV PUSH 07/17/17 09:00 07/19/17 08:53 Ertapenem 1000 mg/ Sodium Chloride 100 ml @ 200 mls/hr Q24H IV 07/19/17 05:00 07/19/17 05:40 Objective Remarks GENERAL: Older male, resting in bed in no acute distress. He is much more alert today than yesterday SKIN: Warm and dry. HEAD: Normocephalic. EYES: No injection or drainage. NECK: Supple, trachea midline. CARDIOVASCULAR: Regular rate and rhythm without murmurs. RESPIRATORY: Clear anteriorly. Breathing unlabored. GASTROINTESTINAL: Abdomen soft, non-tender, nondistended. EXTREMITIES: No cyanosis, or edema. SCD's to bilateral lower extremities NEUROLOGICAL: No obvious focal deficit. Moving all extremities. Assessment/Plan Assessment 1. We will order CT abdomen and pelvis with IV contrast for tomorrow to rule out other intra-abdominal processes given his presentation; his kidney function is much improved today but we will give him another day to additionally recover. 2. It is 90% likely that his anemia was stemming from the acute infection. Plan The exam, history, and the medical decision-making described in the above note were completed with the assistance of the mid-level provider. I reviewed and agree with the findings presented. I attest that I had a [id number] encounter with the patient on the same day, and personally performed and documented my assessment and findings in the medical record. although improving he is not well with significant back pain which he attributes to arthritis. to proceed with ct scan of abd and pelvis. Soraya Escobedo Jul 19, 2017 10:39 Kerwin Degroot MD Jul 20, 2017 20:31
--- NOTE | 2017-07-19 12:46 | HHI.PR ---
Subjective Remarks Follow-up for UTI and bacteremia Patient asking if espinosa can be removed. Otherwise has no complaints. Deny abdominal pain, nausea or vomiting. Patient's nurse stated that he wanted to restart his tramadol. Patient had fevers last night and earlier today. Objective Vitals Vital Signs Date Time Temp Pulse Resp B/P (MAP) Pulse Ox O2 Delivery O2 Flow Rate FiO2 07/19/17 08:45 Room Air 07/19/17 08:00 98.8 75 17 122/74 (90) 97 07/19/17 07:58 57 07/19/17 04:00 98.5 80 20 123/76 (92) 98 07/19/17 00:00 101.9 88 20 132/82 (99) 98 07/18/17 20:00 Room Air 07/18/17 20:00 101.4 101 20 138/74 (95) 97 07/18/17 20:00 91 07/18/17 17:32 98 21 07/18/17 16:00 98.4 100 19 122/68 (86) 98 I/O 07/18/17 07/18/17 07/18/17 07/19/17 07/19/17 07/19/17 07:00 15:00 23:00 07:00 15:00 23:00 Intake Total 1840 ml 380 ml 5534 ml 1007 ml Output Total 1400 ml 2800 ml 400 ml 2600 ml Balance 440 ml -2420 ml 5134 ml -1593 ml Intake Oral 740 ml 380 ml 480 ml 320 ml IV Total 1100 ml 5054 ml 687 ml Output Urine Total 1400 ml 2800 ml 400 ml 2600 ml # Bowel Movements 1 3 1 2 Result Diagram: 07/19/17 0646 07/19/17 0646 Objective Remarks GENERAL: in NAD sitting in bed CARDIOVASCULAR: Regular rate and rhythm without murmurs, gallops, or rubs. Abd soft NDNT. No hepatosplenomegaly. Negative for any peritoneal signs. RESPIRATORY: Breath sounds equal bilaterally. No accessory muscle use. Psych: Flat affect. Medications and IVs Current Medications Sodium Chloride 1,000 ml @ 70 mls/hr [id number] ONCE IV Last administered on 07/15t 19:55; Start 07/15/17 at 17:35; Stop 07/16/17 at 07:52; Status DC Sodium Chloride 1,000 ml @ 2,000 mls/hr Q30M ONCE IV Last administered on 07/15 18:54; Start 07/15/17 at 17:45; Stop 07/15/17 at 18:14; Status DC Sodium Chloride 1,000 ml @ 2,000 mls/hr Q30M ONCE IV Last administered on 07/15 18:53; Start 07/15/17 at 17:45; Stop 07/15/17 at 18:14; Status DC Vancomycin HCl 2250 mg/Sodium Chloride 522.5 ml @ 250 mls/hr ONCE ONCE IV Last administered on 07/15/17 21:00; Start 07/15/17 at 19:00; Stop 07/16/17 at 15:54; Status DC Ampicillin Sodium 2000 mg/Sodium Chloride 100 ml @ 300 mls/hr ONCE STAT IV Last administered on 07/15/17 18:37; Start 07/15/17 at 18:00; Stop 07/15/17 at 18:19; Status DC Ceftazidime 2000 mg/Sodium Chloride 100 ml @ 200 mls/hr ONCE STAT IV Last administered on 07/15/17 19:55; Start 07/15/17 at 18:00; Stop 07/15/17 at 18:29 ; Status DC Acyclovir Sodium 1000 mg/Sodium Chloride 150 ml @ 150 mls/hr ONCE ONCE IV Last administered on 07/15/17 20:50; Start 07/15/17 at 19:00; Stop 07/15/17 at 19:59; Status DC Acetaminophen (Tylenol Supp) 650 mg ONCE ONCE RECTAL Last administered on 07/15 18:38; Start 07/15/17 at 18:30; Stop 07/15/17 at 18:31; Status DC Lorazepam (Ativan) 0.5 mg DAILY PRN PO ANXIETY Last administered on 07/17/17 02:18; Start 07/15/17 at 20:15; Stop 07/18/17 at 14:32; Status DC Tamsulosin HCl (Flomax) 0.4 mg HS PO Last administered on 07/18/17 21:16; Start 07/15/17 at 21:00 Sodium Chloride 1,000 ml @ 124 mls/hr Q8H4M IV Last administered on 07/19/17 05:40; Start 07/15/17 at 20:14 Sodium Chloride (NS Flush) 2 ml UNSCH PRN .XX FLUSH AFTER USING IV ACCESS; Start 07/15/17 at 20:15 Sodium Chloride (NS Flush) 2 ml BID .XX Last administered on 07/19/17 08:53; Start 07/15/17 at 21:00 Acetaminophen (Tylenol) 650 mg Q6H PRN PO PAIN 1-10 AND/OR FEVER >101F Last administered on 07/19/17 09:30; Start 07/15/17 at 20:15 Famotidine (Pepcid Inj) 20 mg Q12HR IV PUSH Last administered on 07/16/17 08: 02; Start 07/15/17 at 21:00; Stop 07/16/17 at 14:29; Status DC Ondansetron HCl (Zofran Inj) 4 mg Q6H PRN IV NAUSEA OR VOMITING; Start at 20:15 Zolpidem Tartrate (Ambien) 5 mg HS PRN PO INSOMNIA Last administered on 21:16; Start 07/15/17 at 20:15 Albuterol/ Ipratropium (Duoneb Neb) 1 ampule Q2HR NEB PRN INH WHEEZING; Start 07/15/17 at 20:15 Heparin Sodium (Porcine) (Heparin Inj) 5,000 units Q12H SQ Last administered on 07/19/17 08:53; Start 07/15/17 at 20:15 Miscellaneous Information 1 Q361D XX ; Start 07/15/17 at 20:15 Chlorhexidine Gluconate (Chlorhexidine 2% Cloth) 3 pack Taper DAILY@04 TOP Last administered on 07/16/17 23:08; Start 07/16/17 at 04:00; Stop 07/12/18 at 03:59 Chlorhexidine Gluconate (Chlorhexidine 2% Cloth) 3 pack UNSCH PRN TOP HYGIENIC CARE; Start 07/15/17 at 20:15 Senna/Docusate Sodium (Annetta-Colace) 1 tab BID PO Last administered on 10:17; Start 07/15/17 at 21:00 Magnesium Hydroxide (Milk Of Magnesia Liq) 30 ml Q12H PRN PO MILD - MODERATE CONSTIPATION; Start 07/15/17 at 20:15 Sennosides (Senokot) 17.2 mg Q12H PRN PO MODERATE - SEVERE CONSTIPATION; Start 07/15/17 at 20:15 Bisacodyl (Dulcolax Supp) 10 mg DAILY PRN RECTAL SEVERE CONSITIPATION; Start at 20:15 Lactulose (Lactulose Liq) 30 ml DAILY PRN PO SEVERE CONSITIPATION; Start at 20:15 Dexamethasone Sodium Phosphate (Decadron Inj) 4 mg Q6H IV Last administered on 07/15/17 21:01; Start 07/15/17 at 20:30; Stop 07/16/17 at 00:03; Status DC Vancomycin HCl 1250 mg/Sodium Chloride 262.5 ml @ 250 mls/hr ONCE ONCE IV ; Start 07/15/17 at 21:30; Stop 07/15/17 at 22:32; Status UNV Pharmacy Profile Note 0 ml @ 0 mls/hr UNSCH OTHER ; Start 07/15/17 at 20:30; Stop 07/16/17 at 15:54; Status DC Ampicillin Sodium 2000 mg/Sodium Chloride 100 ml @ 300 mls/hr Q4H IV Last administered on 07/16/17 12:43; Start 07/15/17 at 21:00; Stop 07/16/17 at 15:54 ; Status DC Ceftazidime 2000 mg/Sodium Chloride 100 ml @ 200 mls/hr Q12H IV Last administered on 07/16/17 08:03; Start 07/16/17 at 08:00; Stop 07/16/17 at 15:54 ; Status DC Sodium Chloride 1,000 ml @ 1,000 mls/hr Q1H ONCE IV Last administered on 22:07; Start 07/15/17 at 20:21; Stop 07/15/17 at 21:20; Status DC Sodium Chloride 1,000 ml @ 1,000 mls/hr Q1H ONCE IV Last administered on 20:51; Start 07/15/17 at 20:21; Stop 07/15/17 at 21:20; Status DC Sodium Chloride 100 ml @ 1,000 mls/hr Q6M ONCE IV Last administered on 20:51; Start 07/15/17 at 20:21; Stop 07/15/17 at 20:28; Status DC Influenza Virus Vaccine (Flu (Quadrivalent) Vaccine Inj) 0.5 ml ONCE ONCE IM ; Start 07/17/17 at 10:00; Stop 07/17/17 at 10:01; Status Cancel Sodium Chloride 250 ml @ 15 mls/hr ONCE ONCE IV Last administered on 10:15; Start 07/16/17 at 10:15; Stop 07/17/17 at 02:54; Status DC Acetaminophen (Tylenol) 650 mg Q4H PRN PO SEE LABEL COMMENTS; Start 07/16/17 at 10:15; Stop 07/17/17 at 10:14; Status DC Diphenhydramine HCl (Benadryl) 25 mg Q4H PRN PO SEE LABEL COMMENTS; Start 07/16 at 10:15; Stop 07/17/17 at 10:14; Status DC Famotidine (Pepcid Inj) 10 mg Q12HR IV PUSH Last administered on 07/19/17 08: 53; Start 07/17/17 at 09:00 Miscellaneous Medication (ASP Crit: Doc ESBL, MDR A baumannii or P aer) 1 UNSCH X1 PRN .XX PHARMACY DOCUMENTATION; Start 07/16/17 at 16:00; Stop 07/17/17 at 15 :59; Status DC Miscellaneous Medication ([facility] Pharmacy Information) 1 UNSCH X1 PRN XX PHARMACY DOCUMENTATION; Start 07/16/17 at 16:00; Stop 07/17/17 at 15:59; Status DC Meropenem 500 mg/ Sodium Chloride 100 ml @ 200 mls/hr Q12H IV Last administered on 07/18/17 18:35; Start 07/16/17 at 17:00; Stop 07/18/17 at 19:16 ; Status DC Lorazepam (Ativan Inj) 2 mg STK-MED ONCE .ROUTE Last administered on 07/17/17 08:10; Start 07/17/17 at 08:03; Stop 07/17/17 at 08:04; Status DC Haloperidol Lactate (Haldol Inj) 5 mg NOW ONCE IV ; Start 07/17/17 at 09:00; Stop 07/17/17 at 09:01; Status DC Lorazepam (Ativan Inj) 1 mg Q4H PRN IV PUSH agitation Last administered on 07/18 04:59; Start 07/17/17 at 14:15; Stop 07/18/17 at 14:32; Status DC Oxycodone/ Acetaminophen (Percocet 5-325 Mg) 1 tab ONCE ONCE PO Last administered on 07/18/17 03:29; Start 07/17/17 at 22:30; Stop 07/17/17 at 22:47 ; Status DC Meropenem 1000 mg/ Sodium Chloride 100 ml @ 200 mls/hr Q8H IV ; Start 07/18/17 at 17:00; Status Cancel Ertapenem (INVanz INJ) 1,000 mg DAILY IV ; Start 07/19/17 at 05:00; Status Cancel Ertapenem 1000 mg/ Sodium Chloride 100 ml @ 200 mls/hr Q24H IV Last administered on 07/19/17 05:40; Start 07/19/17 at 05:00 A/P Assessment and Plan Altered mental status -due to sepsis. -Seemed to resolve. I think patient does have a psych component to this. -Continue to monitor. Severe sepsis due to UTI/bacteremia - CT head negative, LP negative. Urine culture ESBL positive. Blood culture I/4 ESBL positive. - ID consulted and previous ampicillin/ceftazidime was discontinued -Meropenem discontinued yesterday. Patient now on ertapenem. He did have fevers last night. Clinically doing well. -CT scan abdomen and pelvis scheduled for tomorrow. bladder outlet obstruction in setting og history of silicone scrotal implants without evidence of current scrotal infection -Espinosa in place by urologist. Per urologist will need to keep Espinosa in until urological workup is completed. This will be done as outpatient. Arthritis - Hold NSAIDs and methotrexate due to SIRS and acute kidney injury - Resume when above results -Will consult physical therapist. -Patient now saying he is on tramadol. Dealt with patient's nurse to confirm with pharmacist. Acute kidney injury -Most likely prerenal. Resolved. - Avoid nephrotoxin - Monitor creatinine and urine output - Renal ultrasound shows 2 renal cysts. Hypertension - lisinopril held due to acute kidney injury - Hydralazine when necessary to keep SBP less than 160 BPH - Flomax Anemia-normocytic normochromic -Labs reviewed most likely secondary to iron deficiency due to kidney disease. Improved. Continue monitor. -Reservations Clerk is following. DVT GI prophylaxis - Teds SCDs subcutaneous heparin and Pepcid Noemy Diaz MD Jul 19, 2017 12:46
[2017-07-19] MEDS: ONDANSETRON HCL 4 MG/2 ML VIAL IV PRN (15:27)
[2017-07-19] MEDS: TAMSULOSIN HCL 0.4 MG CAP PO SCH (21:00)
[2017-07-19] MEDS: ZOLPIDEM TARTRATE 5 MG TAB PO PRN (23:05)
[2017-07-20] VITALS (8 sets, daily range): BP systolic 108–151; BP diastolic 60–78; PULSE 71–91; RESP 17–19; TEMP 97.6–99.5; O2SAT 96–99
[2017-07-20] MEDS: CHLORHEXIDINE GLUCONATE 2 % 1 PACK (2 CLOTHS) TOP SCH (04:00)
[2017-07-20] MEDS: SODIUM CHLOR 0.9% 1000 ML INJ 1,000 ML IV SCH ×2 (05:06→22:27)
[2017-07-20] MEDS: ACETAMINOPHEN 325 MG TAB PO PRN ×3 (06:00→23:26)
[2017-07-20] MEDS: ERTAPENEM 1,000 MG/NS 100 ML IV SCH ×2 (07:01)
[2017-07-20 07:24] LABS: BICARBONATE 26.3 MEQ/L (21.0-32.0); POTASSIUM 3.8 MEQ/L (3.5-5.1)
[2017-07-20] MEDS: HEPARIN SODIUM - SQ 10,000 UNITS/ML VIAL SQ SCH ×2 (08:47→20:15)
[2017-07-20] MEDS: FAMOTIDINE 20 MG/2 ML VIAL IV PUSH SCH ×2 (08:47→22:21)
[2017-07-20] MEDS: SODIUM CHLORIDE 0.9% FLUSH 10 ML FLUSH SCH ×2 (08:49→22:22)
[2017-07-20] MEDS: DOCUSATE SODIUM 50 MG/SENNA 8.6 MG TAB PO SCH ×2 (08:50→21:00)
--- NOTE | 2017-07-20 12:55 | HHI.PR ---
Subjective Remarks Follow-up for bacteremia UTI Patient had lots question about his Crocker. He stated that he wants workup during his hospitalization in regards to urinary obstruction. Otherwise he stated that he feels a lot better. He is found sitting in the chair. Patient wants to ambulate. I told patient's nurse who stated that he ambulate to his chair without any difficulty. She stated his back pain has improved now that he sitting in chair. He remained afebrile for 24 hours. Objective Vitals Vital Signs Date Time Temp Pulse Resp B/P (MAP) Pulse Ox O2 Delivery O2 Flow Rate FiO2 07/20/17 09:09 Room Air 07/20/17 09:09 71 07/20/17 08:00 98.6 74 17 124/76 (92) 97 07/20/17 08:00 97.6 91 18 151/78 (102) 96 07/20/17 04:00 Room Air 07/20/17 04:00 98.2 73 18 127/74 (91) 97 07/20/17 00:00 Room Air 07/20/17 00:00 98.4 78 18 129/77 (94) 97 07/19/17 20:00 Room Air 07/19/17 20:00 80 07/19/17 19:41 97 07/19/17 16:00 Room Air 07/19/17 16:00 99.2 81 17 124/79 (94) 99 I/O 07/19/17 07/19/17 07/19/17 07/20/17 07/20/17 07/20/17 06:59 14:59 22:59 06:59 14:59 22:59 Intake Total 1007 ml 2599 ml 973 ml 100 ml Output Total 2600 ml 2600 ml 1600 ml Balance -1593 ml -1 ml -627 ml 100 ml Intake Oral 320 ml 1440 ml 480 ml IV Total 687 ml 1159 ml 493 ml 100 ml Output Urine Total 2600 ml 2600 ml 1600 ml # Bowel Movements 2 1 Result Diagram: 07/19/17 0646 07/20/17 0612 Objective Remarks GENERAL: in NAD sitting in chair. CARDIOVASCULAR: Regular rate and rhythm without murmurs, gallops, or rubs. Abd soft NDNT. No hepatosplenomegaly. Negative for any peritoneal signs. RESPIRATORY: Breath sounds equal bilaterally. No accessory muscle use. Psych: Flat affect. Medications and IVs Current Medications Sodium Chloride 1,000 ml @ 70 mls/hr [id number] ONCE IV Last administered on 07/15 19:55; Start 07/15/17 at 17:35; Stop 07/16/17 at 07:52; Status DC Sodium Chloride 1,000 ml @ 2,000 mls/hr Q30M ONCE IV Last administered on 07/15 18:54; Start 07/15/17 at 17:45; Stop 07/15/17 at 18:14; Status DC Sodium Chloride 1,000 ml @ 2,000 mls/hr Q30M ONCE IV Last administered on 07/15 18:53; Start 07/15/17 at 17:45; Stop 07/15/17 at 18:14; Status DC Vancomycin HCl 2250 mg/Sodium Chloride 522.5 ml @ 250 mls/hr ONCE ONCE IV Last administered on 07/15/17 21:00; Start 07/15/17 at 19:00; Stop 07/16/17 at 15:54; Status DC Ampicillin Sodium 2000 mg/Sodium Chloride 100 ml @ 300 mls/hr ONCE STAT IV Last administered on 07/15/17 18:37; Start 07/15/17 at 18:00; Stop 07/15/17 at 18:19; Status DC Ceftazidime 2000 mg/Sodium Chloride 100 ml @ 200 mls/hr ONCE STAT IV Last administered on 07/15/17 19:55; Start 07/15/17 at 18:00; Stop 07/15/17 at 18:29 ; Status DC Acyclovir Sodium 1000 mg/Sodium Chloride 150 ml @ 150 mls/hr ONCE ONCE IV Last administered on 07/15/17 20:50; Start 07/15/17 at 19:00; Stop 07/15/17 at 19:59; Status DC Acetaminophen (Tylenol Supp) 650 mg ONCE ONCE RECTAL Last administered on 07/15 18:38; Start 07/15/17 at 18:30; Stop 07/15/17 at 18:31; Status DC Lorazepam (Ativan) 0.5 mg DAILY PRN PO ANXIETY Last administered on 07/17/17 02:18; Start 07/15/17 at 20:15; Stop 07/18/17 at 14:32; Status DC Tamsulosin HCl (Flomax) 0.4 mg HS PO Last administered on 07/19/17 21:00; Start 07/15/17 at 21:00 Sodium Chloride 1,000 ml @ 124 mls/hr Q8H4M IV Last administered on 07/19/17 23:06; Start 07/15/17 at 20:14 Sodium Chloride (NS Flush) 2 ml UNSCH PRN .XX FLUSH AFTER USING IV ACCESS; Start 07/15/17 at 20:15 Sodium Chloride (NS Flush) 2 ml BID .XX Last administered on 07/20/17 08:49; Start 07/15/17 at 21:00 Acetaminophen (Tylenol) 650 mg Q6H PRN PO PAIN 1-10 AND/OR FEVER >101F Last administered on 07/20/17 06:00; Start 07/15/17 at 20:15 Famotidine (Pepcid Inj) 20 mg Q12HR IV PUSH Last administered on 07/16/17 08: 02; Start 07/15/17 at 21:00; Stop 07/16/17 at 14:29; Status DC Ondansetron HCl (Zofran Inj) 4 mg Q6H PRN IV NAUSEA OR VOMITING Last administered on 07/19/17 15:27; Start 07/15/17 at 20:15 Zolpidem Tartrate (Ambien) 5 mg HS PRN PO INSOMNIA Last administered on 23:05; Start 07/15/17 at 20:15 Albuterol/ Ipratropium (Duoneb Neb) 1 ampule Q2HR NEB PRN INH WHEEZING; Start 07/15/17 at 20:15 Heparin Sodium (Porcine) (Heparin Inj) 5,000 units Q12H SQ Last administered on 07/20/17 08:47; Start 07/15/17 at 20:15 Miscellaneous Information 1 Q361D XX ; Start 07/15/17 at 20:15; Stop 07/20/17 at 05:35; Status DC Chlorhexidine Gluconate (Chlorhexidine 2% Cloth) 3 pack Taper DAILY@04 TOP Last administered on 07/16/17 23:08; Start 07/16/17 at 04:00; Stop 07/20/17 at 05:35; Status DC Chlorhexidine Gluconate (Chlorhexidine 2% Cloth) 3 pack UNSCH PRN TOP HYGIENIC CARE; Start 07/15/17 at 20:15; Stop 07/20/17 at 05:35; Status DC Senna/Docusate Sodium (Annetta-Colace) 1 tab BID PO Last administered on 10:17; Start 07/15/17 at 21:00 Magnesium Hydroxide (Milk Of Magnesia Liq) 30 ml Q12H PRN PO MILD - MODERATE CONSTIPATION; Start 07/15/17 at 20:15 Sennosides (Senokot) 17.2 mg Q12H PRN PO MODERATE - SEVERE CONSTIPATION; Start 07/15/17 at 20:15 Bisacodyl (Dulcolax Supp) 10 mg DAILY PRN RECTAL SEVERE CONSITIPATION; Start at 20:15 Lactulose (Lactulose Liq) 30 ml DAILY PRN PO SEVERE CONSITIPATION; Start at 20:15 Dexamethasone Sodium Phosphate (Decadron Inj) 4 mg Q6H IV Last administered on 07/15/17 21:01; Start 07/15/17 at 20:30; Stop 07/16/17 at 00:03; Status DC Vancomycin HCl 1250 mg/Sodium Chloride 262.5 ml @ 250 mls/hr ONCE ONCE IV ; Start 07/15/17 at 21:30; Stop 07/15/17 at 22:32; Status UNV Pharmacy Profile Note 0 ml @ 0 mls/hr UNSCH OTHER ; Start 07/15/17 at 20:30; Stop 07/16/17 at 15:54; Status DC Ampicillin Sodium 2000 mg/Sodium Chloride 100 ml @ 300 mls/hr Q4H IV Last administered on 07/16/17 12:43; Start 07/15/17 at 21:00; Stop 07/16/17 at 15:54 ; Status DC Ceftazidime 2000 mg/Sodium Chloride 100 ml @ 200 mls/hr Q12H IV Last administered on 07/16/17 08:03; Start 07/16/17 at 08:00; Stop 07/16/17 at 15:54 ; Status DC Sodium Chloride 1,000 ml @ 1,000 mls/hr Q1H ONCE IV Last administered on 22:07; Start 07/15/17 at 20:21; Stop 07/15/17 at 21:20; Status DC Sodium Chloride 1,000 ml @ 1,000 mls/hr Q1H ONCE IV Last administered on 20:51; Start 07/15/17 at 20:21; Stop 07/15/17 at 21:20; Status DC Sodium Chloride 100 ml @ 1,000 mls/hr Q6M ONCE IV Last administered on 20:51; Start 07/15/17 at 20:21; Stop 07/15/17 at 20:28; Status DC Influenza Virus Vaccine (Flu (Quadrivalent) Vaccine Inj) 0.5 ml ONCE ONCE IM ; Start 07/17/17 at 10:00; Stop 07/17/17 at 10:01; Status Cancel Sodium Chloride 250 ml @ 15 mls/hr ONCE ONCE IV Last administered on 10:15; Start 07/16/17 at 10:15; Stop 07/17/17 at 02:54; Status DC Acetaminophen (Tylenol) 650 mg Q4H PRN PO SEE LABEL COMMENTS; Start 07/16/17 at 10:15; Stop 07/17/17 at 10:14; Status DC Diphenhydramine HCl (Benadryl) 25 mg Q4H PRN PO SEE LABEL COMMENTS; Start 07/16 at 10:15; Stop 07/17/17 at 10:14; Status DC Famotidine (Pepcid Inj) 10 mg Q12HR IV PUSH Last administered on 07/20/17 08: 47; Start 07/17/17 at 09:00 Miscellaneous Medication (ASP Crit: Doc ESBL, MDR A baumannii or P aer) 1 UNSCH X1 PRN .XX PHARMACY DOCUMENTATION; Start 07/16/17 at 16:00; Stop 07/17/17 at 15 :59; Status DC Miscellaneous Medication ([facility] [place] Pharmacy Information) 1 UNSCH X1 PRN XX PHARMACY DOCUMENTATION; Start 07/16/17 at 16:00; Stop 07/17/17 at 15:59; Status DC Meropenem 500 mg/ Sodium Chloride 100 ml @ 200 mls/hr Q12H IV Last administered on 07/18/17 18:35; Start 07/16/17 at 17:00; Stop 07/18/17 at 19:16 ; Status DC Lorazepam (Ativan Inj) 2 mg STK-MED ONCE .ROUTE Last administered on 07/17/17 08:10; Start 07/17/17 at 08:03; Stop 07/17/17 at 08:04; Status DC Haloperidol Lactate (Haldol Inj) 5 mg NOW ONCE IV ; Start 07/17/17 at 09:00; Stop 07/17/17 at 09:01; Status DC Lorazepam (Ativan Inj) 1 mg Q4H PRN IV PUSH agitation Last administered on 07/18 04:59; Start 07/17/17 at 14:15; Stop 07/18/17 at 14:32; Status DC Oxycodone/ Acetaminophen (Percocet 5-325 Mg) 1 tab ONCE ONCE PO Last administered on 07/18/17 03:29; Start 07/17/17 at 22:30; Stop 07/17/17 at 22:47 ; Status DC Meropenem 1000 mg/ Sodium Chloride 100 ml @ 200 mls/hr Q8H IV ; Start 07/18/17 at 17:00; Status Cancel Ertapenem (INVanz INJ) 1,000 mg DAILY IV ; Start 07/19/17 at 05:00; Status Cancel Ertapenem 1000 mg/ Sodium Chloride 100 ml @ 200 mls/hr Q24H IV Last administered on 07/20/17 07:01; Start 07/19/17 at 05:00 A/P Assessment and Plan Altered mental status -due to sepsis. -Seemed to resolve. I think patient does have a psych component to this. -Continue to monitor. Severe sepsis due to UTI/bacteremia ESBL positive - CT head negative, LP negative. Urine culture ESBL positive. Blood culture I/4 ESBL positive. - ID consulted and previous ampicillin/ceftazidime was discontinued -Meropenem discontinued 07/18. Patient now on ertapenem. -[employer] wants CT scan abdomen and pelvis for today. Bladder outlet obstruction in setting of history of silicone scrotal implants without evidence of current scrotal infection -Crocker in place by urologist. Per urologist will need to keep Crocker in until urological workup is completed. This will be done as outpatient. Arthritis - Hold NSAIDs and methotrexate due to SIRS and acute kidney injury - Resume when above results -Physical therapist consulted and stated patient can go home with no PT. -Pain improved with movement. Continue to encourage ambulation. Dealt with patient's nurse to walk patient in the hallway since she stated patient had no difficulty walking to the bed. Acute kidney injury -Most likely prerenal. Resolved. - Avoid nephrotoxin - Monitor creatinine and urine output - Renal ultrasound shows 2 renal cysts. Hypertension - lisinopril held due to acute kidney injury. At the moment he is normotensive. - Hydralazine when necessary to keep SBP less than 160 BPH - Flomax Anemia, normocytic normochromic -Per field attendant anemia most likely secondary to infection. DVT GI prophylaxis - Teds SCDs subcutaneous heparin and Pepcid Noemy Diaz MD Jul 20, 2017 12:55
--- NOTE | 2017-07-20 16:35 | PD.ONC.PN ---
Subjective Subjective Remarks Afebrile. Feeling better Objective Data Date Time Temp Pulse Resp B/P (MAP) Pulse Ox O2 Delivery O2 Flow Rate FiO2 07/20/17 12:00 98.4 78 17 128/74 (92) 97 07/20/17 09:09 Room Air 07/20/17 09:09 71 07/20/17 08:00 98.6 74 17 124/76 (92) 97 07/20/17 08:00 97.6 91 18 151/78 (102) 96 07/20/17 04:00 Room Air 07/20/17 04:00 98.2 73 18 127/74 (91) 97 07/20/17 00:00 Room Air 07/20/17 00:00 98.4 78 18 129/77 (94) 97 07/19/17 20:00 Room Air 07/19/17 20:00 80 07/19/17 19:41 97 07/20/17 07/20/17 07/20/17 07:00 15:00 23:00 Intake Total 973 ml 100 ml Output Total 1600 ml Balance -627 ml 100 ml Result Diagram: 07/19/17 0646 07/20/17 0612 Laboratory Results Laboratory Tests Test 07/20/17 06:12 Blood Urea Nitrogen 13 MG/DL Creatinine 1.18 MG/DL Random Glucose 97 MG/DL Calcium Level 8.5 MG/DL Sodium Level 142 MEQ/L Potassium Level 3.8 MEQ/L Chloride Level 107 MEQ/L Carbon Dioxide Level 26.3 MEQ/L Anion Gap 9 MEQ/L Estimat Glomerular Filtration Rate 62 ML/MIN Administered Medications Medications (Trade) Dose Ordered Sig/Víctor Route PRN Reason Start Time Stop Time Status Last Admin Dose Admin Tamsulosin HCl (Flomax) 0.4 mg HS PO 07/15/17 21:00 07/19/17 21:00 Sodium Chloride 1,000 ml @ 124 mls/hr Q8H4M IV 07/15/17 20:14 07/19/17 23:06 Sodium Chloride (NS Flush) 2 ml BID .XX 07/15/17 21:00 07/20/17 08:49 Acetaminophen (Tylenol) 650 mg Q6H PRN PO PAIN 1-10 AND/OR FEVER >101F 07/15/17 20:15 07/20/17 06:00 Ondansetron HCl (Zofran Inj) 4 mg Q6H PRN IV NAUSEA OR VOMITING 07/15/17 20:15 07/19/17 15:27 Zolpidem Tartrate (Ambien) 5 mg HS PRN PO INSOMNIA 07/15/17 20:15 07/19/17 23:05 Heparin Sodium (Porcine) (Heparin Inj) 5,000 units Q12H SQ 07/15/17 20:15 07/20/17 08:47 Senna/Docusate Sodium (Annetta-Colace) 1 tab BID PO 07/15/17 21:00 07/18/17 10:17 Famotidine (Pepcid Inj) 10 mg Q12HR IV PUSH 07/17/17 09:00 07/20/17 08:47 Ertapenem 1000 mg/ Sodium Chloride 100 ml @ 200 mls/hr Q24H IV 07/19/17 05:00 07/20/17 07:01 Objective Remarks GENERAL: Older male, resting in bed in no acute distress. SKIN: Warm and dry. HEAD: Normocephalic. EYES: No injection or drainage. NECK: Supple, trachea midline. CARDIOVASCULAR: Regular rate and rhythm without murmurs. RESPIRATORY: Clear anteriorly. Breathing unlabored. GASTROINTESTINAL: Abdomen soft, non-tender, nondistended. EXTREMITIES: No cyanosis, or edema. SCD's to bilateral lower extremities NEUROLOGICAL: No obvious focal deficit. Moving all extremities. Assessment/Plan Assessment 1.CT abdomen and pelvis with IV contrast ordered to rule out other intra- abdominal processes given his presentation. It will be interesting to see if there are any other infectious processes. Dr. Lloyd has written an order today to keep in the Crocker catheter until after discharged. Plan The exam, history, and the medical decision-making described in the above note were completed with the assistance of the mid-level provider. I reviewed and agree with the findings presented. I attest that I had a [id number] encounter with the patient on the same day, and personally performed and documented my assessment and findings in the medical record. ct scan of abd and pelvis reviewed and he has a fluid collection posterior to right kidney which I suspect is an abscess. The may explain part of the back pain which is right sided and he has tenderness in the area corresponding to the findings on the ct scan of abd and pelvis. Suspect Abscess and have communicated this to Dr. Kiana BARON and she will follow up with Dr. Lloyd. At this point I believe the anemia well explained by events and will see PRN. I reviewed the images with the patient. Soraya Escobedo Jul 20, 2017 16:35 Kerwin Degroot MD Jul 20, 2017 20:35
[2017-07-20] MEDS ORDERED: IOHEXOL 350 MG/ML 10 ML VIAL (for RAD DIAG) IVCONTRAST ONE (16:59)
--- NOTE | 2017-07-20 18:18 | RADRPT ---
EXAM DATE/TIME: 07/20/2017 16:49 This report includes an Addendum and supersedes previous reports for this exam. [facility] COMPARISON: US KIDNEY/RENAL/BLADDER, July 16, 2017, 17:25. INDICATIONS : Severe sepsis, urinary tract infection. IV CONTRAST: 99 cc Omnipaque 350 (iohexol) IV ORAL CONTRAST: No oral contrast ingested. RADIATION DOSE: 13.08 CTDIvol (mGy) MEDICAL HISTORY : Renal calculi. SURGICAL HISTORY : Testicular implants. ENCOUNTER: Initial ACUITY: 1 day PAIN SCALE: 0/10 LOCATION: lower quadrant TECHNIQUE: Volumetric scanning of the abdomen and pelvis was performed. Using automated exposure control and ad justment of the mA and/or kV according to patient size, radiation dose was kept as low as reasonably achievable to obtain optimal diagnostic quality images. DICOM format image data is available electro nically for review and comparison. FINDINGS: LOWER LUNGS: There are minimal pleural effusions. LIVER: Homogeneous density without lesion. There is no dilation of the biliary tree. No calcified gallston es. SPLEEN: Normal size without lesion. PANCREAS: Within normal limits. KIDNEYS: Normal in size and shape. There is no solid intrarenal mass, stone or hydronephrosis. Posterior to t he right kidney is a complex mass measuring up to 7.4 x 7.6 x 8.4 cm in diameter. This contains cysti c components as well as septations or solid regions and abuts the posterior aspect of the right kidne y which is flattened. There is a simple cyst in the upper pole the right kidney. There are no renal c alculi or obstruction. ADRENAL GLANDS: Within normal limits. VASCULAR: There is no aortic aneurysm. BOWEL/MESENTERY: No oral contrast was given limiting the sensitivity. There are multiple diverticuli greatest in the s igmoid colon. The stomach, small bowel, and colon demonstrate no acute abnormality. There is no free intraperitoneal air or fluid. ABDOMINAL WALL: Within normal limits. RETROPERITONEUM: There is no lymphadenopathy. BLADDER: No wall thickening or mass. A Crocker catheter is present and there is air present. REPRODUCTIVE: Within normal limits. INGUINAL: There is no lymphadenopathy or hernia. MUSCULOSKELETAL: Within normal limits for patient age. CONCLUSION: Complex mass posterior to the right kidney. Differential diagnosis includes abscess o r hematoma. There are minimal pleural effusions. Mamadou Reinoso MD on July 20, 2017 at 18:08 Board Certified Radiologist. This report was verified electronically. ADDENDUM: There is a second small low attenuation lesion in the lower pole of the left kidney measuring approxi mately 1.6 cm which measures approximately 48 Hounsfield units in density and is an indeterminate fin ding. Mamadou Reinoso MD on August 03, 2017 at 7:21 Board Certified Radiologist. This report was verified electronically.
[2017-07-20] MEDS: TAMSULOSIN HCL 0.4 MG CAP PO SCH (22:21)
[2017-07-21] VITALS (8 sets, daily range): BP systolic 113–153; BP diastolic 54–80; PULSE 70–86; RESP 17–20; TEMP 97.3–99.9; O2SAT 97–100
[2017-07-21] MEDS: ERTAPENEM 1,000 MG/NS 100 ML IV SCH ×2 (04:16)
[2017-07-21] MEDS: SODIUM CHLOR 0.9% 1000 ML INJ 1,000 ML IV SCH ×3 (07:02→23:48)
[2017-07-21] MEDS: ACETAMINOPHEN 325 MG TAB PO PRN (07:05)
[2017-07-21] MEDS: HEPARIN SODIUM - SQ 10,000 UNITS/ML VIAL SQ SCH ×2 (09:52→20:15)
[2017-07-21] MEDS: FAMOTIDINE 20 MG/2 ML VIAL IV PUSH SCH ×2 (09:52→20:55)
[2017-07-21] MEDS: SODIUM CHLORIDE 0.9% FLUSH 10 ML FLUSH SCH ×2 (09:52→20:59)
[2017-07-21] MEDS: DOCUSATE SODIUM 50 MG/SENNA 8.6 MG TAB PO SCH ×2 (09:53→20:55)
[2017-07-21 10:31] LABS: HEMATOCRIT 26.5 % (39.0-51.0); MEAN CELL VOLUME 91.8 FL (80.0-100.0); MEAN CORPUSCULAR HEMOGLOBIN 27.9 PG (27.0-34.0); MEAN CORPUSCULAR HGB CONC 30.4 % (32.0-36.0); PLATELET COUNT 487 TH/MM3 (150-450); RED BLOOD COUNT 2.88 MIL/MM3 (4.50-5.90); RED CELL DISTRIBUTION WIDTH 18.5 % (11.6-17.2); REVIEW FLAG FINAL; WHITE BLOOD COUNT 12.7 TH/MM3 (4.0-11.0)
[2017-07-21 10:59] LABS: BICARBONATE 25.8 MEQ/L (21.0-32.0); POTASSIUM 3.6 MEQ/L (3.5-5.1)
[2017-07-21] MEDS: amLODIPine BESYLATE 5 MG TAB PO SCH (12:20)
--- NOTE | 2017-07-21 13:03 | HHI.PR ---
Subjective Patient symptoms today Reconsult it to reassess patient based on CT scan study performed yesterday that demonstrated a complex mass posterior to the right kidney measuring just over 8 cm with septations, cystic changes and solid areas. This area appears to abut the right kidney and does not appear to be stemming from the kidney itself. Differential diagnosis includes abscess versus hematoma formation. Objective Vital Signs Vital Signs Date Time Temp Pulse Resp B/P (MAP) Pulse Ox O2 Delivery O2 Flow Rate FiO2 07/21/17 12:00 98.7 71 18 138/76 (96) 100 07/21/17 10:35 75 07/21/17 10:01 Room Air 07/21/17 08:00 99.3 71 18 153/76 (101) 97 07/21/17 06:06 Room Air 07/21/17 04:00 97.3 70 17 120/59 (79) 97 07/21/17 00:00 98.5 75 18 150/80 (103) 98 07/20/17 22:12 98 21 07/20/17 20:37 99.5 78 19 114/69 (84) 98 07/20/17 20:00 Room Air 07/20/17 16:00 99.4 86 17 108/60 (76) 99 Intake & Output 07/21/17 07/21/17 06:59 18:59 Intake Total 1335 ml 100 ml Output Total 2500 ml Balance -1165 ml 100 ml IV Total 1335 ml 100 ml Output Urine Total 2500 ml Result Diagram: 07/21/17 0848 07/21/[address] scan with findings as outlined above. Medications and IVs Current Medications Medications (Trade) Dose Ordered Sig/Víctor Route Start Time Stop Time Status Last Admin (Flomax) 0.4 mg HS PO 07/15/17 21:00 07/20/17 22:21 Sodium Chloride 1,000 ml @ 124 mls/hr Q8H4M IV 07/15/17 20:14 07/21/17 07:02 (NS Flush) 2 ml UNSCH PRN .XX 07/15/17 20:15 (NS Flush) 2 ml BID .XX 07/15/17 21:00 07/21/17 09:52 (Tylenol) 650 mg Q6H PRN PO 07/15/17 20:15 07/21/17 07:05 (Zofran Inj) 4 mg Q6H PRN IV 07/15/17 20:15 07/19/17 15:27 (Ambien) 5 mg HS PRN PO 07/15/17 20:15 07/19/17 23:05 (Duoneb Neb) 1 ampule Q2HR NEB PRN INH 07/15/17 20:15 (Heparin Inj) 5,000 units Q12H SQ 07/15/17 20:15 07/21/17 09:52 (Annetta-Colace) 1 tab BID PO 07/15/17 21:00 07/18/17 10:17 (Milk Of Magnesia Liq) 30 ml Q12H PRN PO 07/15/17 20:15 (Senokot) 17.2 mg Q12H PRN PO 07/15/17 20:15 (Dulcolax Supp) 10 mg DAILY PRN RECTAL 07/15/17 20:15 (Lactulose Liq) 30 ml DAILY PRN PO 07/15/17 20:15 (Pepcid Inj) 10 mg Q12HR IV PUSH 07/17/17 09:00 07/21/17 09:52 Ertapenem 1000 mg/ Sodium Chloride 100 ml @ 200 mls/hr Q24H IV 07/19/17 05:00 07/21/17 04:16 (Norvasc) 5 mg DAILY PO 07/21/17 11:15 07/21/17 12:20 Assessment and Plan Assessment and Plan Urologic impression: #1 complex cystic mass abutting posterior aspect of right kidney of indeterminate etiology. Differential includes abscess versus hematoma formation. #2 bladder outlet obstruction relieved with indwelling Crocker catheter with improvement in renal parameters Recommendations: #1 agree with ultrasound evaluation of complex mass posterior to right kidney / may require percutaneous drainage by interventional radiology. #2 continue with Crocker catheter to gravity drainage and do not remove until cystoscopic evaluation performed (may be done as an outpatient with patient's established urologist). #3 further recommendations pending results of renal ultrasound Ed Lloyd MD Jul 21, 2017 13:03
--- NOTE | 2017-07-21 13:19 | HHI.PR ---
Subjective Remarks Pt seen earlier. States that whenever he sits pain is better and rates it about 3/10. however laying down makes it worst and he would like something stronger for his pain. Denies any CP/SOB/N/V Objective Vitals Vital Signs Date Time Temp Pulse Resp B/P (MAP) Pulse Ox O2 Delivery O2 Flow Rate FiO2 07/21/17 12:00 98.7 71 18 138/76 (96) 100 07/21/17 10:35 75 07/21/17 10:01 Room Air 07/21/17 08:00 99.3 71 18 153/76 (101) 97 07/21/17 06:06 Room Air 07/21/17 04:00 97.3 70 17 120/59 (79) 97 07/21/17 00:00 98.5 75 18 150/80 (103) 98 07/20/17 22:12 98 21 07/20/17 20:37 99.5 78 19 114/69 (84) 98 07/20/17 20:00 Room Air 07/20/17 16:00 99.4 86 17 108/60 (76) 99 I/O 07/20/17 07/20/17 07/20/17 07/21/17 07/21/17 07/21/17 06:59 14:59 22:59 06:59 14:59 22:59 Intake Total 973 ml 100 ml 1925 ml 1000 ml 100 ml Output Total 1600 ml 1850 ml 2500 ml Balance -627 ml 100 ml 75 ml -1500 ml 100 ml Intake Oral 480 ml 1440 ml IV Total 493 ml 100 ml 485 ml 1000 ml 100 ml Output Urine Total 1600 ml 1850 ml 2500 ml # Bowel Movements 1 3 Result Diagram: 07/21/17 0848 07/21/17 0848 Imaging Last Impressions Abdomen/Pelvis CT 07/20/17 0000 Signed Impressions: Service Date/Time: June 16:49 - CONCLUSION: Complex mass posterior to the right kidney. Differential diagnosis includes abscess or hematoma. There are minimal pleural effusions. Mamadou Reinoso MD Renal Ultrasound 07/16/17 0000 Signed Impressions: Service Date/Time: Sunday, July 16, 2017 17:25 - CONCLUSION: Two right renal cysts. Arron Mccain MD Head CT 07/15/17 0000 Signed Impressions: Service Date/Time: Saturday, July 15, 2017 17:36 - CONCLUSION: 1. 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 2. No acute hemorrhage, acute infarct, mass effect or extra axial fluid collections. Arron Mccain MD Chest X-Ray 07/15/17 0000 Signed Impressions: Service Date/Time: Saturday, July 15, 2017 19:34 - CONCLUSION: No acute disease. Arron Mccain MD Objective Remarks GENERAL: sitting in chair. CARDIOVASCULAR: Regular rate and rhythm without murmurs Abd soft NT. pain w palpation of the right flank. RESPIRATORY: Breath sounds equal bilaterally. No accessory muscle use. Psych: Flat affect. EYES: EOMI MSK: moves his extremities A/P Assessment and Plan Altered mental status -due to sepsis. -Seemed to have resolved. Severe sepsis due to UTI/bacteremia ESBL positive - CT head negative, LP negative. Urine culture ESBL positive. Blood culture I/4 ESBL positive. - ID following -Meropenem discontinued 07/18. Patient now on ertapenem. -Street Light Lamp Cleaner following and ordered CT scan abdomen and pelvis which showed complex mass concerning for abscess vs hematoma. I notified Dr. Lloyd of CT findings and he will see patient today Bladder outlet obstruction in setting of history of silicone scrotal implants without evidence of current scrotal infection -Crocker in place by urologist. Per urologist will need to keep Crocker in until urological workup is completed. This will be done as outpatient. Arthritis - Hold NSAIDs and methotrexate due to SIRS and acute kidney injury - Resume when above results -Physical therapist following and patient can go home with no PT. -Pain improved with movement. Continue to encourage ambulation. Acute kidney injury -Most likely prerenal. Resolved. - Avoid nephrotoxin. Monitor creatinine and urine output - Renal ultrasound shows 2 renal cysts. Hypertension - lisinopril held due to acute kidney injury. At the moment he is normotensive. - Hydralazine when necessary to keep SBP less than 160 - added amlodipine 5mg po daily. BPH - Flomax Anemia, normocytic normochromic -Per black top paver operator anemia most likely secondary to infection. at this time will only f/u prn. DVT GI prophylaxis - Teds SCDs subcutaneous heparin and Pepcid Discharge Planning urology will re-evaluate the patient regarding ? abscess and possible drainage. Discussed w ID and urology Yaa Prescott MD Jul 21, 2017 13:19
--- NOTE | 2017-07-21 14:33 | RADRPT ---
EXAM DATE/TIME: 07/21/2017 11:15 [facility] COMPARISON: CT ABDOMEN & PELVIS W CONTRAST, July 20, 2017, 16:49. US KIDNEY/RENAL/BLADDER, July 16, 2017, 17 :25. INDICATIONS : Abnormal CT. MEDICAL HISTORY : Hypertension. Benign prostatic hyperplasia, (BPH) SURGICAL HISTORY : None. ENCOUNTER: Subsequent ACUITY: 4-6 days PAIN SCORE: 6/10 LOCATION: Bilateral flank MEASUREMENTS: RIGHT KIDNEY: 13.1 x 6.0 x 6.2 cm LEFT KIDNEY: 13.8 x 5.2 x 5.0 cm FINDINGS: This examination was performed to evaluate the area of infection directly adjacent to the lateral mar gin of the right kidney. When sonographically interrogated this area is consistent with phlegmon that has yet to liquefy. This area measures 8.1 x 6.1 x 5.0 cm. A very tiny central area of fluid is seen but the rest is echogenic phlegmon. The fluid component is too small to accept the catheter. The rig ht kidney is normal otherwise with the exception of a 3.4 cm simple cyst involving the upper pole. Th e left kidney is unremarkable. Neither kidney shows hydronephrosis. CONCLUSION: 1. The area of infection adjacent to the right kidney has yet to liquefy. There is a very tiny centra l fluid component that is too small to access for catheter placement. The rest relates to phlegmon th at has yet to liquefy. If the patient's clinical status does not improve repeat ultrasound can be con sidered to evaluate for liquefaction. Rob Booker Jr., MD on July 21, 2017 at 14:24 Board Certified Radiologist. This report was verified electronically.
--- NOTE | 2017-07-21 18:24 | HHI.IDPN ---
Subjective Subjective Remarks Mr. Vargas is a 61-year-old white male with past medical history of rheumatoid arthritis was on methotrexate, osteoarthritis, prostatectomy enlargement reportedly benign. He also reports history of recurrent urinary tract infection is most recent urinary tract infection was several months back. He reports he is homosexual/MSM. Patient is an extremely poor historian and had to be redirected several times throughout the conversation. He has word finding difficulty as well as tangential thinking. Patient reports that he is visiting his mom to help her move to [place] where he lives. He was reportedly brought in by his mother as she found him confused and unaware of events. Reportedly when patient arrived to the emergency department he was completely nonverbal but had no neurological deficit and was not found to have any seizures. A stroke alert was called and patient was ruled out to have a stroke. Patient did have a lumbar puncture as well as a sepsis workup was initiated on admission. On 07/15/2017, hemoglobin 8.3, white count 15,000 and platelet count of 357,000, the differential was unremarkable. The following day, 07/16, hemoglobin 7, white count 12,600 and platelets 276,000, again with an unremarkable differential. He was found to be in renal failure with a BUN of 41, creatinine 3.7. Liver function tests are normal. On arrival, he had an elevated temperature of 101.7. Blood cultures are currently growing out gram-negative rods and he is on antibiotics. Chest x-ray on 07/15/2017 showing no acute cardiopulmonary disease. 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 Patient is in the [facility] at the time of my visit with the patient. He's sitting in his bed has no neurological deficit. He's currently not on any pressors and is on room air. He has good urine output. Speech as described earlier. Blood cultures done on admission are positive for ESBL Escherichia coli based on Verigene testing. Urine cultures are positive for gram-negative rods. Patient is currently on Zosyn IV. Clinically he does not appear to be in overt sepsis and appears to have stabilized. Infectious disease is consulted for evaluation and management of gram-negative bacteremia. Overnight events reviewed. No fevers No rash No diarrhea ESBL in blood and urine CT with fluid collection. reviewed with Radiologist likely abscess. Asked to reconsult . Repeat US kidney to see if this is liquified. Antibiotics Ertapenem Lines Line sites with no e.o infection Past Medical History reviewed Allergies: Coded Allergies: No Known Allergies (Verified Allergy, Unknown, 07/15/17) Unable to Assess (Verified Allergy, Unknown, 07/15/17) Objective . Vital Signs Date Time Temp Pulse Resp B/P (MAP) Pulse Ox O2 Delivery O2 Flow Rate FiO2 07/21/17 18:01 98 21 07/21/17 16:00 99.1 78 18 122/67 (85) 98 07/21/17 12:00 98.7 71 18 138/76 (96) 100 07/21/17 10:35 75 07/21/17 10:01 Room Air 07/21/17 08:00 99.3 71 18 153/76 (101) 97 07/21/17 06:06 Room Air 07/21/17 04:00 97.3 70 17 120/59 (79) 97 07/21/17 00:00 98.5 75 18 150/80 (103) 98 07/20/17 22:12 98 21 07/20/17 20:37 99.5 78 19 114/69 (84) 98 07/20/17 20:00 Room Air 07/21/17 07/21/17 07/22/17 15:00 23:00 07:00 Intake Total 100 ml 995 ml Balance 100 ml 995 ml IV Total 100 ml 995 ml . Laboratory Tests Test 07/21/17 08:48 White Blood Count 12.7 TH/MM3 Red Blood Count 2.88 MIL/MM3 Hemoglobin 8.0 GM/DL Hematocrit 26.5 % Mean Corpuscular Volume 91.8 FL Mean Corpuscular Hemoglobin 27.9 PG Mean Corpuscular Hemoglobin Concent 30.4 % Red Cell Distribution Width 18.5 % Platelet Count 487 TH/MM3 Mean Platelet Volume 7.3 FL Laboratory Tests Test 07/20/17 06:12 07/21/17 08:48 Blood Urea Nitrogen 13 MG/DL 12 MG/DL Creatinine 1.18 MG/DL 1.10 MG/DL Random Glucose 97 MG/DL 81 MG/DL Calcium Level 8.5 MG/DL 8.3 MG/DL Sodium Level 142 MEQ/L 141 MEQ/L Potassium Level 3.8 MEQ/L 3.6 MEQ/L Chloride Level 107 MEQ/L 105 MEQ/L Carbon Dioxide Level 26.3 MEQ/L 25.8 MEQ/L Anion Gap 9 MEQ/L 10 MEQ/L Estimat Glomerular Filtration Rate 62 ML/MIN 68 ML/MIN Microbiology Date/Time Source Procedure Growth Status 07/21/17 11:45 Stool Stool Stool Occult Blood ([facility]) - Final HEMOCCULT NEGATIVE Complete Imaging Last Impressions Renal Ultrasound 07/16/17 0000 Signed Impressions: Service Date/Time: Sunday, July 16, 2017 17:25 - CONCLUSION: Two right renal cysts. Arron Mccain MD Head CT 07/15/17 0000 Signed Impressions: Service Date/Time: Saturday, July 15, 2017 17:36 - CONCLUSION: 1. 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 2. No acute hemorrhage, acute infarct, mass effect or extra axial fluid collections. Arron Mccain MD Chest X-Ray 07/15/17 0000 Signed Impressions: Service Date/Time: Saturday, July 15, 2017 19:34 - CONCLUSION: No acute disease. Arron Mccain MD Physical Exam GENERAL: This is a well-nourished, well-developed patient, in no apparent distress. SKIN: No rashes, ecchymoses or lesions. Cool and dry. HEAD: Atraumatic. Normocephalic. No temporal or scalp tenderness. EYES: Pupils equal round and reactive. Extraocular motions intact. No scleral icterus. No injection or drainage. ENT: Nose without bleeding, purulent drainage or septal hematoma. Throat without erythema, tonsillar hypertrophy or exudate. Uvula midline. Airway patent. NECK: Trachea midline. Supple, nontender, no meningeal signs. CARDIOVASCULAR: Regular rate and rhythm without murmurs, gallops, or rubs. RESPIRATORY: Clear to auscultation. Breath sounds equal bilaterally. No wheezes , rales, or rhonchi. GASTROINTESTINAL: Abdomen soft, non-tender, nondistended. MUSCULOSKELETAL: Extremities without clubbing, cyanosis, or edema. NEUROLOGICAL: Awake and alert. Speech pressurized. Word finding difficulty. Tangential thinking. No focal neuro deficit. Patient had to be redirected several times. Psych: cooperative IV line sites with no e.o infection. Assessment & Plan Remarks Sepsis present on admission likely sources UTI and bacteremia. Gram-negative bacteremia. Preliminary ID as ESBL Escherichia coli. Likely source UTI. ESBL E.coli UTI ESBL E.coli Kidney/Intraabd abscess. Prior history of recurrent UTIs, history of renal stones, history of prostate problems. History of silicon injections into the scrotum in the past. History of GI bleeding in the past. Anemia undergoing workup as well as status post blood transfusion. Acute and cephalic at the present on admission appears to have resolved except for the speech issues. Neurology evaluating the patient. Recommendations Continue Ertapenem IV (ASP criteria: ESBL E.coli bacteremia based on Verigene testing) Follow clinically. Reviewed Urology input. Discussed with RN. Will need longer upto 4 weeks of IV antibiotics based on new CT abd findings. Patient promises to stay in [facility] area for next 4 weeks. Possible discharge Monday next week once cleared by Urology. Patient has indwelling espinosa ? does he need it on discharge. Please check with urology. d/w on more than one occasion today. to cover for me this weekend. Gayle Bruno MD Jul 21, 2017 18:24
[2017-07-21] MEDS: ONDANSETRON HCL 4 MG/2 ML VIAL IV PRN (20:55)
[2017-07-21] MEDS: TAMSULOSIN HCL 0.4 MG CAP PO SCH (20:55)
[2017-07-21] MEDS: ZOLPIDEM TARTRATE 5 MG TAB PO PRN (21:08)
[2017-07-22] VITALS (7 sets, daily range): BP systolic 109–128; BP diastolic 58–74; PULSE 67–84; RESP 18–20; TEMP 98.7–99.6; O2SAT 96–100
[2017-07-22] MEDS: ERTAPENEM 1,000 MG/NS 100 ML IV SCH ×2 (05:31)
[2017-07-22] MEDS: SODIUM CHLOR 0.9% 1000 ML INJ 1,000 ML IV SCH ×3 (05:32→23:36)
[2017-07-22] MEDS: DOCUSATE SODIUM 50 MG/SENNA 8.6 MG TAB PO SCH ×2 (09:00→21:00)
[2017-07-22] MEDS: HEPARIN SODIUM - SQ 10,000 UNITS/ML VIAL SQ SCH ×2 (09:21→20:15)
[2017-07-22] MEDS: amLODIPine BESYLATE 5 MG TAB PO SCH (09:22)
[2017-07-22] MEDS: FAMOTIDINE 20 MG/2 ML VIAL IV PUSH SCH ×2 (09:22→21:51)
[2017-07-22] MEDS: SODIUM CHLORIDE 0.9% FLUSH 10 ML FLUSH SCH ×2 (09:25→21:00)
--- NOTE | 2017-07-22 17:53 | HHI.PR ---
Subjective Remarks Pt states that pain is improved and currently he feels more of a discomfort in his back. denies any CP/SOB/N/V Objective Vitals Vital Signs Date Time Temp Pulse Resp B/P (MAP) Pulse Ox O2 Delivery O2 Flow Rate FiO2 07/22/17 12:00 98.7 70 18 109/58 (75) 100 07/22/17 08:40 73 07/22/17 08:40 Room Air 07/22/17 08:00 98.9 73 18 118/72 (87) 96 07/22/17 04:00 98.7 67 20 125/74 (91) 97 07/22/17 00:09 99.5 84 20 125/74 (91) 97 07/21/17 20:00 99.9 86 20 113/54 (73) 98 07/21/17 19:30 Room Air 07/21/17 18:01 98 21 I/O 07/21/17 07/21/17 07/21/17 07/22/17 07/22/17 07/22/17 06:59 14:59 22:59 06:59 14:59 22:59 Intake Total 1000 ml 100 ml 1715 ml Output Total 2500 ml 2050 ml 2400 ml Balance -1500 ml 100 ml -335 ml -2400 ml Intake Oral 720 ml IV Total 1000 ml 100 ml 995 ml Output Urine Total 2500 ml 2050 ml 2400 ml # Bowel Movements 2 Result Diagram: 07/21/17 0848 07/21/17 0848 Imaging Last Impressions Renal Ultrasound 07/21/17 0000 Signed Impressions: Service Date/Time: Friday, July 21, 2017 11:15 - CONCLUSION: 1. The area of infection adjacent to the right kidney has yet to liquefy. There is a very tiny central fluid component that is too small to access for catheter placement. The rest relates to phlegmon that has yet to liquefy. If the patient's clinical status does not improve repeat ultrasound can be considered to evaluate for liquefaction. Rob Booker Jr., MD Abdomen/Pelvis CT 07/20/17 0000 Signed Impressions: Service Date/Time: June 16:49 - CONCLUSION: Complex mass posterior to the right kidney. Differential diagnosis includes abscess or hematoma. There are minimal pleural effusions. Mamadou Reinoso MD Head CT 07/15/17 0000 Signed Impressions: Service Date/Time: Saturday, July 15, 2017 17:36 - CONCLUSION: 1. 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 2. No acute hemorrhage, acute infarct, mass effect or extra axial fluid collections. Arron cMcain MD Chest X-Ray 07/15/17 0000 Signed Impressions: Service Date/Time: Saturday, July 15, 2017 19:34 - CONCLUSION: No acute disease. Arron Mccain MD Objective Remarks GENERAL: sitting in chair. CARDIOVASCULAR: Regular rate and rhythm without murmurs Abd soft NT. RESPIRATORY: Breath sounds equal bilaterally. No accessory muscle use. Psych: Flat affect. EYES: EOMI MSK: moves his extremities A/P Assessment and Plan Altered mental status-resolved -most likely was due to sepsis. Severe sepsis due to UTI/bacteremia ESBL positive - CT head negative, LP negative. Urine culture ESBL positive. Blood culture I/4 ESBL positive. - ID following -Meropenem discontinued 07/18. Patient now on ertapenem. -[employer]t [employer]ime Drawer following and ordered CT scan abdomen and pelvis which showed complex mass concerning for abscess vs hematoma. Dr. Lloyd re-evaluated the pt and recommends conservative management with antibiotics and supportive care.Repeat a renal ultrasound within the next 48-72 hours for reassessment continue with Crocker catheter to gravity drainage and do not remove until cystoscopic evaluation performed (may be done as an outpatient with patient's established urologist). Arthritis - Hold NSAIDs and methotrexate due to SIRS and acute kidney injury - Resume when above results -Physical therapist following and patient can go home with no PT. -Pain improved with movement. Continue to encourage ambulation. Acute kidney injury -Most likely prerenal. Resolved. - Avoid nephrotoxin. Monitor creatinine and urine output - Renal ultrasound shows 2 renal cysts. Hypertension - lisinopril held due to acute kidney injury. At the moment he is normotensive. - Hydralazine when necessary to keep SBP less than 160 - on amlodipine 5mg po daily. BPH - Flomax Anemia, normocytic normochromic -Per nursery technician anemia most likely secondary to infection. at this time will only f/u prn. DVT GI prophylaxis - Teds SCDs subcutaneous heparin and Pepcid Discharge Planning continue conservative management with antibiotics and supportive care.Repeat a renal ultrasound within the next 48-72 hours for reassessment Yaa Prescott MD Jul 22, 2017 17:53
[2017-07-22] MEDS: TAMSULOSIN HCL 0.4 MG CAP PO SCH (21:50)
[2017-07-22] MEDS: ZOLPIDEM TARTRATE 5 MG TAB PO PRN (21:51)
[2017-07-23] VITALS (9 sets, daily range): BP systolic 119–135; BP diastolic 61–78; PULSE 69–81; RESP 18–20; TEMP 98–99.7; O2SAT 96–100
[2017-07-23] MEDS: ACETAMINOPHEN/HYDROcodone 325 MG/5 MG TAB PO PRN ×3 (01:48→21:36)
[2017-07-23] MEDS: ZOLPIDEM TARTRATE 5 MG TAB PO PRN (01:48)
[2017-07-23] MEDS: ERTAPENEM 1,000 MG/NS 100 ML IV SCH ×2 (04:23)
[2017-07-23] MEDS: DOCUSATE SODIUM 50 MG/SENNA 8.6 MG TAB PO SCH ×2 (08:53→20:37)
[2017-07-23] MEDS: FAMOTIDINE 20 MG/2 ML VIAL IV PUSH SCH ×2 (09:01→20:37)
[2017-07-23] MEDS: SODIUM CHLOR 0.9% 1000 ML INJ 1,000 ML IV SCH ×3 (09:01→20:36)
[2017-07-23] MEDS: SODIUM CHLORIDE 0.9% FLUSH 10 ML FLUSH SCH ×2 (09:02→20:36)
[2017-07-23] MEDS: amLODIPine BESYLATE 5 MG TAB PO SCH (09:02)
[2017-07-23] MEDS: HEPARIN SODIUM - SQ 10,000 UNITS/ML VIAL SQ SCH ×2 (09:02→20:15)
[2017-07-23 10:45] LABS: AUTOMATED NEUTROPHIL # 7.9 TH/MM3 (1.8-7.7); BASOPHIL # 0.1 TH/MM3 (0-0.2); BASOPHIL % 0.6 % (0.0-2.0); EOSINOPHIL # 0.2 TH/MM3 (0-0.4); EOSINOPHIL % 1.6 % (0.0-4.0); HEMATOCRIT 26.2 % (39.0-51.0); HEMO FLAGS DIFF FINAL; LYMPH % 7.1 % (9.0-44.0); LYMPHOCYTE # 0.7 TH/MM3 (1.0-4.8); MEAN CORPUSCULAR HEMOGLOBIN 30.8 PG (27.0-34.0); MEAN CORPUSCULAR HGB CONC 33.9 % (32.0-36.0); MONO % 6.9 % (0.0-8.0); NEUT % 83.8 % (16.0-70.0); PLATELET COUNT 348 TH/MM3 (150-450); RED BLOOD COUNT 2.88 MIL/MM3 (4.50-5.90); RED CELL DISTRIBUTION WIDTH 18.7 % (11.6-17.2); WHITE BLOOD COUNT 9.4 TH/MM3 (4.0-11.0)
--- NOTE | 2017-07-23 14:17 | HHI.PR ---
Subjective Remarks Pt states that he feels a bit more comfortable today. Pain is improving but still present. no nausea or vomiting, no CP/SOB Objective Vitals Vital Signs Date Time Temp Pulse Resp B/P (MAP) Pulse Ox O2 Delivery O2 Flow Rate FiO2 07/23/17 12:00 98.0 75 18 123/70 (87) 99 07/23/17 08:27 96 07/23/17 08:10 Room Air 07/23/17 08:10 70 07/23/17 08:00 98.5 70 18 133/78 (96) 100 07/23/17 04:00 98.3 69 18 124/73 (90) 98 07/23/17 00:00 98.8 74 18 127/76 (93) 98 07/22/17 20:00 Room Air 07/22/17 20:00 99.6 82 20 128/65 (86) 99 07/22/17 20:00 77 07/22/17 16:00 99.4 76 20 114/70 (85) 99 I/O 07/22/17 07/22/17 07/22/17 07/23/17 07/23/17 07/23/17 07:00 15:00 23:00 07:00 15:00 23:00 Intake Total 100 ml 1000 ml 2357 ml 480 ml Output Total 2400 ml 2800 ml 2300 ml Balance -2300 ml 1000 ml -443 ml -1820 ml Intake Oral 960 ml 480 ml IV Total 100 ml 1000 ml 1397 ml Output Urine Total 2400 ml 2800 ml 2300 ml # Bowel Movements 1 0 Result Diagram: 07/23/17 0945 07/21/17 0848 Imaging Last Impressions Renal Ultrasound 07/21/17 0000 Signed Impressions: Service Date/Time: Friday, July 21, 2017 11:15 - CONCLUSION: 1. The area of infection adjacent to the right kidney has yet to liquefy. There is a very tiny central fluid component that is too small to access for catheter placement. The rest relates to phlegmon that has yet to liquefy. If the patient's clinical status does not improve repeat ultrasound can be considered to evaluate for liquefaction. Rob Booker Jr., MD Abdomen/Pelvis CT 07/20/17 0000 Signed Impressions: Service Date/Time: June 16:49 - CONCLUSION: Complex mass posterior to the right kidney. Differential diagnosis includes abscess or hematoma. There are minimal pleural effusions. Mamadou Reinoso MD Head CT 07/15/17 0000 Signed Impressions: Service Date/Time: Saturday, July 15, 2017 17:36 - CONCLUSION: 1. 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 2. No acute hemorrhage, acute infarct, mass effect or extra axial fluid collections. Arron Mccain MD Chest X-Ray 07/15/17 0000 Signed Impressions: Service Date/Time: Saturday, July 15, 2017 19:34 - CONCLUSION: No acute disease. Arron Mccain MD Objective Remarks GENERAL: sitting in chair. CARDIOVASCULAR: Regular rate and rhythm without murmurs Abd soft NT. RESPIRATORY: Breath sounds equal bilaterally. No accessory muscle use. Psych: Flat affect. EYES: EOMI MSK: moves his extremities BACK: some pain with palpation on the right flank A/P Assessment and Plan Altered mental status-resolved -most likely was due to sepsis. Severe sepsis due to UTI/bacteremia ESBL positive - CT head negative, LP negative. Urine culture ESBL positive. Blood culture I/4 ESBL positive. - ID following -Meropenem discontinued 07/18. Patient now on ertapenem. -Coppersmith Helper following and ordered CT scan abdomen and pelvis which showed complex mass concerning for abscess vs hematoma. Dr. Lloyd re-evaluated the pt and recommends conservative management with antibiotics and supportive care.Repeat a renal ultrasound within the next 48-72 hours for reassessment continue with Crocker catheter to gravity drainage and do not remove until cystoscopic evaluation performed (may be done as an outpatient with patient's established urologist). I have ordered renal u/s for tomorrow morning. will f/u results Arthritis - Hold NSAIDs and methotrexate due to SIRS and acute kidney injury -Physical therapist following and patient can go home with no PT. -Pain improved with movement. Continue to encourage ambulation. Acute kidney injury - Most likely prerenal. Resolved. - Avoid nephrotoxin. Monitor creatinine and urine output - Renal ultrasound shows 2 renal cysts. Hypertension - lisinopril held due to acute kidney injury. At the moment he is normotensive. - Hydralazine when necessary to keep SBP less than 160 - on amlodipine 5mg po daily. BPH - Flomax Anemia, normocytic normochromic -Per wash driller helper anemia most likely secondary to infection. at this time will only f/u prn. DVT GI prophylaxis - Teds SCDs subcutaneous heparin and Pepcid Discharge Planning continue conservative management with antibiotics and supportive care. Repeat a renal ultrasound tomorrow for reassessment. awaiting final recs from consultants Yaa Prescott MD Jul 23, 2017 14:17
[2017-07-23] MEDS: TAMSULOSIN HCL 0.4 MG CAP PO SCH (20:36)
[2017-07-24] VITALS (8 sets, daily range): BP systolic 130–142; BP diastolic 72–83; PULSE 72–76; RESP 16–20; TEMP 98.8–99.6; O2SAT 97–100
[2017-07-24] MEDS: ERTAPENEM 1,000 MG/NS 100 ML IV SCH ×2 (04:17)
[2017-07-24] MEDS: SODIUM CHLOR 0.9% 1000 ML INJ 1,000 ML IV SCH ×4 (04:28→21:11)
[2017-07-24] MEDS: DOCUSATE SODIUM 50 MG/SENNA 8.6 MG TAB PO SCH ×2 (09:00→21:00)
[2017-07-24] MEDS: SODIUM CHLORIDE 0.9% FLUSH 10 ML FLUSH SCH ×2 (09:02→21:14)
[2017-07-24] MEDS: HEPARIN SODIUM - SQ 10,000 UNITS/ML VIAL SQ SCH ×2 (09:02→20:15)
[2017-07-24] MEDS: amLODIPine BESYLATE 5 MG TAB PO SCH (09:02)
[2017-07-24] MEDS: FAMOTIDINE 20 MG/2 ML VIAL IV PUSH SCH ×2 (09:02→21:13)
[2017-07-24] MEDS: ACETAMINOPHEN/HYDROcodone 325 MG/5 MG TAB PO PRN (09:02)
[2017-07-24 10:15] LABS: AUTOMATED NEUTROPHIL # 10.2 TH/MM3 (1.8-7.7); BASOPHIL # 0.1 TH/MM3 (0-0.2); BASOPHIL % 0.7 % (0.0-2.0); EOSINOPHIL # 0.2 TH/MM3 (0-0.4); EOSINOPHIL % 1.3 % (0.0-4.0); HEMATOCRIT 26.7 % (39.0-51.0); HEMO FLAGS DIFF FINAL; LYMPH % 6.8 % (9.0-44.0); LYMPHOCYTE # 0.8 TH/MM3 (1.0-4.8); MEAN CORPUSCULAR HEMOGLOBIN 28.8 PG (27.0-34.0); MEAN CORPUSCULAR HGB CONC 31.7 % (32.0-36.0); MONO % 4.7 % (0.0-8.0); NEUT % 86.5 % (16.0-70.0); PLATELET COUNT 406 TH/MM3 (150-450); RED BLOOD COUNT 2.93 MIL/MM3 (4.50-5.90); RED CELL DISTRIBUTION WIDTH 18.4 % (11.6-17.2); WHITE BLOOD COUNT 11.8 TH/MM3 (4.0-11.0)
--- NOTE | 2017-07-24 12:41 | RADRPT ---
EXAM DATE/TIME: 07/24/2017 11:00 [facility] COMPARISON: CT ABDOMEN & PELVIS W CONTRAST, July 20, 2017, 16:49. US KIDNEY/RENAL/BLADDER, July 21, 2017, 11:15. INDICATIONS : Right flank pain. Abnormal prior exam and CT. MEDICAL HISTORY : Hypertension. Benign prostatic hypertrophy. SURGICAL HISTORY : None. ENCOUNTER: Subsequent ACUITY: 4-6 days PAIN SCORE: 2/10 LOCATION: Bilateral flank MEASUREMENTS: RIGHT KIDNEY: 14.8 x 6.3 x 6.2 cm LEFT KIDNEY: 13.3 x 5.8 x 5.7 cm FINDINGS: There is no hydronephrosis in either kidney. Left kidney unremarkable. Crocker catheter decompresses th e urinary bladder. Posterior to the right kidney a hypoechoic inhomogeneous mass measuring 7.7 x 5.6 x 6.5 cm is identified posterior laterally with no increased blood flow on color Doppler imaging. At the upper pole of the right kidney a 2.9 x 2.7 x 3.1 cm cyst is noted. CONCLUSION: 1. Simple cyst right kidney. 2. Irregular hypoechoic mass posterior to the right kidney measuring 7.7 x 5.6 x 6.5 cm. A solid righ t renal mass is difficult to exclude. A followup CT examination of the abdomen with and without contr ast is recommended to allow for further characterization of the complex appearing right perirenal lena angélica possibly renal exophytic mass as well as a hypo-dense no non-cystic appearing mass at the lower p ole of the right kidney noted on CT examination but not visualized sonographically. Right renal dima gnancy versus a non-renal origin metastatic lesion are differential diagnostic considerations. John Bell MD on July 24, 2017 at 12:32 Board Certified Radiologist. This report was verified electronically.
--- NOTE | 2017-07-24 14:45 | HHI.PR ---
Subjective Remarks Pt states that pain is better 3/10 but yesterday it got worst overnight. no CP/ SOB/n/v Objective Vitals Vital Signs Date Time Temp Pulse Resp B/P (MAP) Pulse Ox O2 Delivery O2 Flow Rate FiO2 07/24/17 14:10 98 07/24/17 12:00 99.0 73 18 135/73 (93) 99 07/24/17 09:00 Room Air 07/24/17 08:00 99.4 76 18 139/72 (94) 99 07/24/17 04:00 99.2 75 18 130/76 (94) 100 07/24/17 00:00 98.8 74 20 142/83 (102) 100 07/23/17 20:00 76 07/23/17 20:00 Room Air 07/23/17 20:00 98.8 80 18 135/68 (90) 99 07/23/17 18:04 99 07/23/17 16:00 99.7 81 20 119/61 (80) 99 I/O 07/23/17 07/23/17 07/23/17 07/24/17 07/24/17 07/24/17 06:59 14:59 22:59 06:59 14:59 22:59 Intake Total 480 ml 1991 ml 2010 ml Output Total 2300 ml 1800 ml 2450 ml Balance -1820 ml 191 ml -440 ml Intake Oral 480 ml 960 ml 720 ml IV Total 1031 ml 1290 ml Output Urine Total 2300 ml 1800 ml 2450 ml # Bowel Movements 0 2 0 Result Diagram: 07/24/17 0944 07/21/17 0848 Imaging Last Impressions Renal Ultrasound 07/24/17 0000 Signed Impressions: Service Date/Time: Monday, July 24, 2017 11:00 - CONCLUSION: 1. Simple cyst right kidney. 2. Irregular hypoechoic mass posterior to the right kidney measuring 7.7 x 5.6 x 6.5 cm. A solid right renal mass is difficult to exclude. A followup CT examination of the abdomen with and without contrast is recommended to allow for further characterization of the complex appearing right perirenal versus possibly renal exophytic mass as well as a hypo-dense no non-cystic appearing mass at the lower pole of the right kidney noted on CT examination but not visualized sonographically. Right renal malignancy versus a non-renal origin metastatic lesion are differential diagnostic considerations. John Bell MD Abdomen/Pelvis CT 07/20/17 0000 Signed Impressions: Service Date/Time: June 16:49 - CONCLUSION: Complex mass posterior to the right kidney. Differential diagnosis includes abscess or hematoma. There are minimal pleural effusions. Mamadou Reinoso MD Head CT 07/15/17 0000 Signed Impressions: Service Date/Time: Saturday, July 15, 2017 17:36 - CONCLUSION: 1. 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 2. No acute hemorrhage, acute infarct, mass effect or extra axial fluid collections. Arron Mccani MD Chest X-Ray 07/15/17 0000 Signed Impressions: Service Date/Time: Saturday, July 15, 2017 19:34 - CONCLUSION: No acute disease. Arron Mccain MD Objective Remarks GENERAL: sitting in chair. CARDIOVASCULAR: Regular rate and rhythm without murmurs Abd soft NT. RESPIRATORY: Breath sounds equal bilaterally. No accessory muscle use. Psych: Flat affect. EYES: EOMI MSK: moves his extremities BACK: some pain with palpation on the right flank A/P Assessment and Plan Altered mental status-resolved -most likely was due to sepsis. Severe sepsis due to UTI/bacteremia ESBL positive - CT head negative, LP negative. Urine culture ESBL positive. Blood culture I/4 ESBL positive. - ID following -Meropenem discontinued 07/18. Patient now on ertapenem. -Paint Tinter following and ordered CT scan abdomen and pelvis which showed complex mass concerning for abscess vs hematoma. Dr. Lloyd re-evaluated the pt and recommends conservative management with antibiotics and supportive care. Repeat a renal ultrasound showed a 7.7cm/5.6x6.5cm irregular hyoechoic mass posterior to the right kidney. I have discussed findings w Dr. Bruno and Dr. Lloyd and recommendation is to consult IR for biopsy of mass (cultures and path to be sent ). continue with Crocker catheter to gravity drainage and do not remove until cystoscopic evaluation performed (may be done as an outpatient with patient's established urologist). Arthritis - Hold NSAIDs and methotrexate due to SIRS and acute kidney injury -Physical therapist following and patient can go home with no PT. -Pain improved with movement. Continue to encourage ambulation. Acute kidney injury - Most likely prerenal. Resolved. - Avoid nephrotoxin. Monitor creatinine and urine output - Renal ultrasound shows 2 renal cysts. Hypertension - lisinopril held due to acute kidney injury. At the moment he is normotensive. - Hydralazine when necessary to keep SBP less than 160 - on amlodipine 5mg po daily. BPH - Flomax Anemia, normocytic normochromic -Per radio talk show host anemia most likely secondary to infection. at this time will only f/u prn. DVT GI prophylaxis - Teds SCDs subcutaneous heparin and Pepcid Discharge Planning continue conservative management with antibiotics and supportive care. Repeat renal ultrasound showed a 7.7cm/5.6x6.5cm irregular hyoechoic mass posterior to the right kidney. I have discussed findings w Dr. Bruno and Dr. Lloyd and recommendation is to consult IR for biopsy of mass (cultures and path to be sent ) in AM. Yaa Prescott MD Jul 24, 2017 14:45
[2017-07-24] MEDS ORDERED: DIATRIZOATE MEGLUM/DIATRIZOATE SOD 9 ML CUP PO ONE (15:00)
--- NOTE | 2017-07-24 17:55 | HHI.IDPN ---
Subjective Subjective Remarks Mr. Vargas is a 61-year-old white male with past medical history of rheumatoid arthritis was on methotrexate, osteoarthritis, prostatectomy enlargement reportedly benign. He also reports history of recurrent urinary tract infection is most recent urinary tract infection was several months back. He reports he is homosexual/MSM. Patient is an extremely poor historian and had to be redirected several times throughout the conversation. He has word finding difficulty as well as tangential thinking. Patient reports that he is visiting his mom to help her move to [place] where he lives. He was reportedly brought in by his mother as she found him confused and unaware of events. Reportedly when patient arrived to the emergency department he was completely nonverbal but had no neurological deficit and was not found to have any seizures. A stroke alert was called and patient was ruled out to have a stroke. Patient did have a lumbar puncture as well as a sepsis workup was initiated on admission. On 07/15/2017, hemoglobin 8.3, white count 15,000 and platelet count of 357,000, the differential was unremarkable. The following day, 07/16, hemoglobin 7, white count 12,600 and platelets 276,000, again with an unremarkable differential. He was found to be in renal failure with a BUN of 41, creatinine 3.7. Liver function tests are normal. On arrival, he had an elevated temperature of 101.7. Blood cultures are currently growing out gram-negative rods and he is on antibiotics. Chest x-ray on 07/15/2017 showing no acute cardiopulmonary disease. 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 Patient is in the [facility] at the time of my visit with the patient. He's sitting in his bed has no neurological deficit. He's currently not on any pressors and is on room air. He has good urine output. Speech as described earlier. Blood cultures done on admission are positive for ESBL Escherichia coli based on Verigene testing. Urine cultures are positive for gram-negative rods. Patient is currently on Zosyn IV. Clinically he does not appear to be in overt sepsis and appears to have stabilized. Infectious disease is consulted for evaluation and management of gram-negative bacteremia. Overnight events reviewed. No fevers No rash No diarrhea ESBL in blood and urine Antibiotics Ertapenem Lines Line sites with no e.o infection Past Medical History reviewed Allergies: Coded Allergies: No Known Allergies (Verified Allergy, Unknown, 07/15/17) Unable to Assess (Verified Allergy, Unknown, 07/15/17) Objective . Vital Signs Date Time Temp Pulse Resp B/P (MAP) Pulse Ox O2 Delivery O2 Flow Rate FiO2 07/24/17 14:10 98 07/24/17 12:00 99.0 73 18 135/73 (93) 99 07/24/17 09:00 Room Air 07/24/17 08:00 99.4 76 18 139/72 (94) 99 07/24/17 04:00 99.2 75 18 130/76 (94) 100 07/24/17 00:00 98.8 74 20 142/83 (102) 100 07/23/17 20:00 76 07/23/17 20:00 Room Air 07/23/17 20:00 98.8 80 18 135/68 (90) 99 07/23/17 18:04 99 07/24/17 07/24/17 07/25/17 15:00 23:00 07:00 Intake Total 1574 ml Balance 1574 ml IV Total 1574 ml . Laboratory Tests Test 07/23/17 09:45 07/24/17 09:44 White Blood Count 9.4 TH/MM3 11.8 TH/MM3 Red Blood Count 2.88 MIL/MM3 2.93 MIL/MM3 Hemoglobin 8.9 GM/DL 8.4 GM/DL Hematocrit 26.2 % 26.7 % Mean Corpuscular Volume 91.0 FL 91.0 FL Mean Corpuscular Hemoglobin 30.8 PG 28.8 PG Mean Corpuscular Hemoglobin Concent 33.9 % 31.7 % Red Cell Distribution Width 18.7 % 18.4 % Platelet Count 348 TH/MM3 406 TH/MM3 Mean Platelet Volume 7.9 FL 7.3 FL Neutrophils (%) (Auto) 83.8 % 86.5 % Lymphocytes (%) (Auto) 7.1 % 6.8 % Monocytes (%) (Auto) 6.9 % 4.7 % Eosinophils (%) (Auto) 1.6 % 1.3 % Basophils (%) (Auto) 0.6 % 0.7 % Neutrophils # (Auto) 7.9 TH/MM3 10.2 TH/MM3 Lymphocytes # (Auto) 0.7 TH/MM3 0.8 TH/MM3 Monocytes # (Auto) 0.6 TH/MM3 0.6 TH/MM3 Eosinophils # (Auto) 0.2 TH/MM3 0.2 TH/MM3 Basophils # (Auto) 0.1 TH/MM3 0.1 TH/MM3 CBC Comment DIFF FINAL DIFF FINAL Differential Comment Imaging Last Impressions Renal Ultrasound 07/16/17 0000 Signed Impressions: Service Date/Time: Sunday, July 16, 2017 17:25 - CONCLUSION: Two right renal cysts. Arron Mccain MD Head CT 07/15/17 0000 Signed Impressions: Service Date/Time: Saturday, July 15, 2017 17:36 - CONCLUSION: 1. 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 2. No acute hemorrhage, acute infarct, mass effect or extra axial fluid collections. Arron Mccain MD Chest X-Ray 07/15/17 0000 Signed Impressions: Service Date/Time: Saturday, July 15, 2017 19:34 - CONCLUSION: No acute disease. Arron Mccain MD Physical Exam GENERAL: This is a well-nourished, well-developed patient, in no apparent distress. SKIN: No rashes, ecchymoses or lesions. Cool and dry. HEAD: Atraumatic. Normocephalic. No temporal or scalp tenderness. EYES: Pupils equal round and reactive. Extraocular motions intact. No scleral icterus. No injection or drainage. ENT: Nose without bleeding, purulent drainage or septal hematoma. Throat without erythema, tonsillar hypertrophy or exudate. Uvula midline. Airway patent. NECK: Trachea midline. Supple, nontender, no meningeal signs. CARDIOVASCULAR: Regular rate and rhythm without murmurs, gallops, or rubs. RESPIRATORY: Clear to auscultation. Breath sounds equal bilaterally. No wheezes , rales, or rhonchi. GASTROINTESTINAL: Abdomen soft, non-tender, nondistended. MUSCULOSKELETAL: Extremities without clubbing, cyanosis, or edema. NEUROLOGICAL: Awake and alert. Speech pressurized. Word finding difficulty. Tangential thinking. No focal neuro deficit. Patient had to be redirected several times. Psych: cooperative IV line sites with no e.o infection. Assessment & Plan Remarks Sepsis present on admission likely sources UTI and bacteremia. Gram-negative bacteremia. Preliminary ID as ESBL Escherichia coli. Likely source UTI. ESBL E.coli UTI ESBL E.coli Kidney/Intraabd abscess. Prior history of recurrent UTIs, history of renal stones, history of prostate problems. History of silicon injections into the scrotum in the past. History of GI bleeding in the past. Anemia undergoing workup as well as status post blood transfusion. Acute and cephalic at the present on admission appears to have resolved except for the speech issues. Neurology evaluating the patient. Recommendations Continue Ertapenem IV (ASP criteria: ESBL E.coli bacteremia based on Verigene testing) Follow clinically. d/w findings of 2nd US. Recommend IR guided Renal mass biopsy to workup if malignancy vs infection. d.w pt about IR consult. Gayle Bruno MD Jul 24, 2017 17:54
[2017-07-24 19:31] LABS: PROTHROMBIN TIME - PATIENT 10.9 SEC (9.8-11.6)
[2017-07-24] MEDS: TAMSULOSIN HCL 0.4 MG CAP PO SCH (21:12)
[2017-07-25] VITALS (10 sets, daily range): BP systolic 115–139; BP diastolic 64–81; PULSE 64–72; RESP 16–20; TEMP 98.7–99.3; O2SAT 96–100
[2017-07-25] MEDS: ERTAPENEM 1,000 MG/NS 100 ML IV SCH ×2 (04:47)
[2017-07-25] MEDS: SODIUM CHLOR 0.9% 1000 ML INJ 1,000 ML IV SCH ×3 (06:06→22:14)
[2017-07-25] MEDS: HEPARIN SODIUM - SQ 10,000 UNITS/ML VIAL SQ SCH ×2 (08:15→20:15)
[2017-07-25] MEDS: DOCUSATE SODIUM 50 MG/SENNA 8.6 MG TAB PO SCH ×2 (09:00→21:00)
[2017-07-25] MEDS: amLODIPine BESYLATE 5 MG TAB PO SCH (09:03)
[2017-07-25] MEDS: FAMOTIDINE 20 MG/2 ML VIAL IV PUSH SCH ×2 (09:04→21:03)
[2017-07-25] MEDS: SODIUM CHLORIDE 0.9% FLUSH 10 ML FLUSH SCH ×2 (09:04→21:00)
[2017-07-25 09:15] LABS: AUTOMATED NEUTROPHIL # 8.3 TH/MM3 (1.8-7.7); BASOPHIL # 0.1 TH/MM3 (0-0.2); BASOPHIL % 0.5 % (0.0-2.0); EOSINOPHIL # 0.1 TH/MM3 (0-0.4); EOSINOPHIL % 1.3 % (0.0-4.0); HEMATOCRIT 26.3 % (39.0-51.0); HEMO FLAGS DIFF FINAL; LYMPH % 7.1 % (9.0-44.0); LYMPHOCYTE # 0.7 TH/MM3 (1.0-4.8); MEAN CELL VOLUME 90.4 FL (80.0-100.0); MEAN CORPUSCULAR HEMOGLOBIN 29.6 PG (27.0-34.0); MEAN CORPUSCULAR HGB CONC 32.8 % (32.0-36.0); NEUT % 85.1 % (16.0-70.0); PLATELET COUNT 370 TH/MM3 (150-450); RED BLOOD COUNT 2.91 MIL/MM3 (4.50-5.90); RED CELL DISTRIBUTION WIDTH 18.2 % (11.6-17.2); WHITE BLOOD COUNT 9.8 TH/MM3 (4.0-11.0)
[2017-07-25 09:52] LABS: BICARBONATE 26.5 MEQ/L (21.0-32.0)
[2017-07-25 10:09] LABS: POTASSIUM 3.7 MEQ/L (3.5-5.1)
[2017-07-25] MEDS ORDERED: LIDOCAINE HCL 1% 20 ML VIAL ONE (14:19)
[2017-07-25] MEDS ORDERED: MIDAZOLAM HCL 2 MG/2 ML VIAL ONE (14:21)
--- NOTE | 2017-07-25 16:01 | RADRPT ---
EXAM DATE/TIME: 07/25/2017 14:57 [facility] COMPARISON: No previous studies available for comparison. INDICATIONS : Right renal abscess SEDATION TIME: 30 minutes MEDICATION(S): 1.) 2 mg midazolam (Versed) IV 2.) 100 mcg fentanyl (Sublimaze) IV DEVICE(S): 1.) 12 Fr Skater FLUID: Total volume of 20 cc of white fluid was removed. Fluid was sent for laboratory ordered studies. MEDICAL HISTORY : None. SURGICAL HISTORY : None. ENCOUNTER: Initial ACUITY: 1 day PAIN SCORE: 5/10 LOCATION: Right flank PROCEDURE: 1.) Conscious sedation with continuous EKG and oximetry monitoring. 2.) EKG and oximetry remained stable throughout the procedure. PROCEDURE : 1. CT guided drainage of the right renal abscess 2. Conscious sedation with continuous EKG and oximetry monitoring. The risks, benefits and alternatives to the procedure were explained and verbal and written consent w as obtained. Using automated exposure control and adjustment of the mA and/or kV according to patient size, radiation dose was kept as low as reasonably achievable to obtain optimal diagnostic quality i mages. The site was prepped in sterile fashion. Full sterile technique was used, including cap, ma sk, sterile gloves and gown and a large sterile sheet. Hand hygiene and 2% chlorhexidine and/or beta dine/alcohol prep was utilized per protocol for cutaneous antisepsis. The skin and subcutaneous tiss ues were infiltrated with local anesthetic solution. DICOM format image data is available electronic ally for review and comparison. Using CT guidance the prescribed site was localized. Drainage was performed using the prescribed cat heter The patient tolerated the procedure well and there were no complications. Conscious sedation was per formed with the prescribed dosages and duration as above in the presence of an independent trained ra diology nurse to assist in the monitoring of the patient. EKG and oximetry remained stable throughou t the procedure. The patient tolerated the procedure well and there were no complications. The patient was sent to pos t anesthesia recovery in stable condition. CONCLUSION: Uncomplicated CT guided drainage. Jake Kimble MD on July 25, 2017 at 15:59 Board Certified Radiologist. This report was verified electronically.
[2017-07-25] MEDS: ACETAMINOPHEN 325 MG TAB PO PRN (17:44)
--- NOTE | 2017-07-25 18:38 | HHI.PR ---
Subjective Remarks Patient himself says he's eating well, denies any worsening back pain. Denies any fever, nausea, vomiting Objective Vital Signs Date Time Temp Pulse Resp B/P (MAP) Pulse Ox O2 Delivery O2 Flow Rate FiO2 07/25/17 16:10 70 18 121/76 (91) 99 07/25/17 15:55 67 20 135/76 (95) 98 07/25/17 15:40 99.3 70 20 139/81 (100) 100 07/25/17 15:40 99.3 70 16 139/81 (100) 100 07/25/17 13:50 99 07/25/17 12:00 99.3 71 18 116/70 (85) 96 07/25/17 09:09 Room Air 07/25/17 09:09 71 07/25/17 08:00 99.2 72 18 129/75 (93) 99 07/25/17 05:50 98.7 70 16 133/75 (94) 100 07/25/17 01:25 98.7 71 16 127/65 (85) 99 07/24/17 21:50 99.4 74 16 142/77 (98) 97 07/24/17 20:18 72 07/24/17 19:45 Room Air I/O 07/24/17 07/24/17 07/24/17 07/25/17 07/25/17 07/25/17 06:59 14:59 22:59 06:59 14:59 22:59 Intake Total 2010 ml 2534 ml 590 ml 360 ml Output Total 2450 ml 3150 ml 3250 ml 3325 ml Balance -440 ml -616 ml -2660 ml -2965 ml Intake Oral 720 ml 960 ml 480 ml 360 ml IV Total 1290 ml 1574 ml 110 ml Output Urine Total 2450 ml 3150 ml 3250 ml 3200 ml Drainage Total 125 ml # Bowel Movements 0 1 0 2 Result Diagram: 07/25/17 0840 07/25/17 0840 Objective Remarks Has drained over right flank No acute distress, Breath sounds are clear bilaterally, Crocker in place A/P Assessment and Plan Altered mental status-resolved Severe sepsis due to UTI/bacteremia ESBL positive - CT head negative, LP negative. Urine culture ESBL positive. Blood culture I/4 ESBL positive. - ID following -Meropenem discontinued 07/18. Patient now on ertapenem. -Property And Equipment Clerk following and ordered CT scan abdomen and pelvis which showed complex mass concerning for abscess vs hematoma. Dr. Lloyd re-evaluated the pt and recommends conservative management with antibiotics and supportive care. Repeat a renal ultrasound showed a 7.7cm/5.6x6.5cm irregular hyoechoic mass posterior to the right kidney. s/p bx TODAY, ? abscess, path pending continue with Crocker catheter to gravity drainage and do not remove until cystoscopic evaluation performed (may be done as an outpatient with patient's established urologist). Arthritis - Hold NSAIDs and methotrexate due to SIRS and acute kidney injury -Physical therapist following and patient can go home with no PT. -Pain improved with movement. Continue to encourage ambulation. Acute kidney injury - Most likely prerenal and post-renal combo. Resolved. - Avoid nephrotoxin. Monitor creatinine and urine output - Renal ultrasound shows 2 renal cysts. Hypertension - lisinopril held due to acute kidney injury. At the moment he is normotensive. - Hydralazine when necessary to keep SBP less than 160 - on amlodipine 5mg po daily. BPH - Flomax Anemia, normocytic normochromic -Per manufacturing engineer chief anemia most likely secondary to infection. at this time will only f/u prn. DVT GI prophylaxis - Teds SCDs. Awaiting path, will help dictate abx. Aris Heredia MD Jul 25, 2017 18:38
[2017-07-25] MEDS: TAMSULOSIN HCL 0.4 MG CAP PO SCH (21:03)
[2017-07-25] MEDS: ACETAMINOPHEN/HYDROcodone 325 MG/5 MG TAB PO PRN (21:12)
[2017-07-26] VITALS (7 sets, daily range): BP systolic 102–133; BP diastolic 56–76; PULSE 70–82; RESP 16–19; TEMP 98.6–99.3; O2SAT 94–99
[2017-07-26] MEDS: ERTAPENEM 1,000 MG/NS 100 ML IV SCH ×2 (06:07)
[2017-07-26] MEDS: ACETAMINOPHEN 325 MG TAB PO PRN ×2 (06:11→14:35)
[2017-07-26] MEDS: amLODIPine BESYLATE 5 MG TAB PO SCH (08:22)
[2017-07-26] MEDS: DOCUSATE SODIUM 50 MG/SENNA 8.6 MG TAB PO SCH ×2 (08:23→20:26)
[2017-07-26] MEDS: FAMOTIDINE 20 MG/2 ML VIAL IV PUSH SCH ×2 (08:23→20:26)
[2017-07-26] MEDS: SODIUM CHLORIDE 0.9% FLUSH 10 ML FLUSH SCH ×2 (08:24→20:27)
[2017-07-26] MEDS: HEPARIN SODIUM - SQ 10,000 UNITS/ML VIAL SQ SCH ×3 (08:24→20:26)
--- NOTE | 2017-07-26 16:13 | HHI.PR ---
Subjective Remarks Patient himself says he's eating well, denies any worsening back pain. Denies any fever, nausea, vomiting. Patient wanting to go home. Discussed case with urology, recommended the patient get his Crocker exchanged but only completely discontinued after patient is discharged at urology clinic. Discussed case with infectious disease, stated that patient will require IV antibiotics given ESBL, speciation to return tomorrow. Objective Vital Signs Date Time Temp Pulse Resp B/P (MAP) Pulse Ox O2 Delivery O2 Flow Rate FiO2 07/26/17 12:00 98.6 77 19 102/56 (71) 95 07/26/17 08:00 99.3 80 18 133/74 (93) 94 07/26/17 04:00 99.2 78 18 127/72 (90) 95 07/26/17 00:00 98.6 73 18 119/68 (85) 97 07/25/17 20:00 98.8 64 18 115/64 (81) 96 07/25/17 16:10 70 18 121/76 (91) 99 I/O 07/25/17 07/25/17 07/25/17 07/26/17 07/26/17 07/26/17 07:00 15:00 23:00 07:00 15:00 23:00 Intake Total 590 ml 360 ml 580 ml Output Total 3250 ml 3325 ml 2380 ml Balance -2660 ml -2965 ml -1800 ml Intake Oral 480 ml 360 ml 480 ml IV Total 110 ml 100 ml Output Urine Total 3250 ml 3200 ml 2300 ml Drainage Total 125 ml 80 ml # Bowel Movements 0 2 0 Result Diagram: 07/25/17 0840 07/25/17 0840 Objective Remarks Drain over right flank, about 20-30 cc of red fluid. No tenderness over right CVA. Crocker catheter in place Unlabored breathing No abdominal distention No acute distress A/P Assessment and Plan Altered mental status-resolved Initially admitted with Severe sepsis due to UTI/bacteremia ESBL positive - sepsis component resolved, hemodynamically stable afebrile - CT head negative, LP negative. Urine culture ESBL positive. Blood culture I/4 ESBL positive. - ID following -Meropenem discontinued 07/18. Patient now on ertapenem. Sepsis component resolved -Gas Prover following and ordered CT scan abdomen and pelvis which showed complex mass concerning for abscess vs hematoma. Dr. Scaglia re-evaluated the pt and recommends conservative management with antibiotics and supportive care. Repeat a renal ultrasound showed a 7.7cm/5.6x6.5cm irregular hyoechoic mass posterior to the right kidney. s/p bx TODAY, ? abscess, path pending continue with Crocker catheter to gravity drainage and do not remove until cystoscopic evaluation performed (may be done as an outpatient with patient's established urologist). Patient status post IR renal biopsy with drain in place , wound culture from biopsy growing gram-negative rods suggesting abscess. Arthritis - Hold NSAIDs and methotrexate due to SIRS and acute kidney injury. Pain becomes unbearable, may consider restarting methotrexate. -Physical therapist following and patient can go home with no PT. -Pain improved with movement. Continue to encourage ambulation. Acute kidney injury - Most likely prerenal and post-renal combo. Resolved. - Avoid nephrotoxin. Monitor creatinine and urine output - Renal ultrasound shows 2 renal cysts. Hypertension - lisinopril held due to acute kidney injury. At the moment he is normotensive. - Hydralazine when necessary to keep SBP less than 160 - on amlodipine 5mg po daily. BPH - Flomax Anemia, normocytic normochromic -Per naturalization examiner anemia most likely secondary to infection. at this time will only f/u prn. DVT GI prophylaxis - Teds SCDs. Awaiting path speciation and sensitivities. Discussed case with infectious disease, patient will need IV antibiotics and will need to stay through the weekend due to unavailability of infusion centers available as outpatient . Aris Heredia MD Jul 26, 2017 16:13
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
[2017-07-26] MEDS: TAMSULOSIN HCL 0.4 MG CAP PO SCH (20:26)
[2017-07-26] MEDS: SODIUM CHLOR 0.9% 1000 ML INJ 1,000 ML IV SCH (22:26)
[2017-07-27] VITALS (7 sets, daily range): BP systolic 109–128; BP diastolic 61–76; PULSE 64–87; RESP 16–18; TEMP 98–99; O2SAT 92–99
[2017-07-27] MEDS: ACETAMINOPHEN 325 MG TAB PO PRN ×2 (01:23→14:45)
[2017-07-27] MEDS: ERTAPENEM 1,000 MG/NS 100 ML IV SCH ×2 (05:51)
[2017-07-27] MEDS: SODIUM CHLOR 0.9% 1000 ML INJ 1,000 ML IV SCH ×3 (06:30→22:38)
[2017-07-27] MEDS: DOCUSATE SODIUM 50 MG/SENNA 8.6 MG TAB PO SCH ×2 (09:00→20:59)
[2017-07-27] MEDS: amLODIPine BESYLATE 5 MG TAB PO SCH (09:18)
[2017-07-27] MEDS: HEPARIN SODIUM - SQ 10,000 UNITS/ML VIAL SQ SCH ×2 (09:19→20:15)
[2017-07-27] MEDS: FAMOTIDINE 20 MG/2 ML VIAL IV PUSH SCH ×2 (09:19→20:58)
[2017-07-27] MEDS: SODIUM CHLORIDE 0.9% FLUSH 10 ML FLUSH SCH ×2 (09:20→20:57)
--- NOTE | 2017-07-27 16:19 | HHI.PR ---
Subjective Remarks denies cp/sob denies fevers/chills Objective Vitals Vital Signs Date Time Temp Pulse Resp B/P (MAP) Pulse Ox O2 Delivery O2 Flow Rate FiO2 07/27/17 12:00 98.8 76 17 115/64 (81) 96 07/27/17 10:17 92 Simple Mask 6.00 07/27/17 09:20 Room Air 07/27/17 08:00 98.4 67 17 128/72 (90) 97 07/27/17 04:00 98.0 64 16 123/74 (90) 97 07/27/17 00:00 98.7 73 18 115/68 (84) 98 07/26/17 20:00 98.7 70 16 120/76 (91) 99 07/26/17 17:46 94 21 I/O 07/26/17 07/26/17 07/26/17 07/27/17 07/27/17 07/27/17 07:00 15:00 23:00 07:00 15:00 23:00 Intake Total 580 ml 600 ml 580 ml Output Total 2380 ml 1700 ml 3460 ml Balance -1800 ml 600 ml -1700 ml -2880 ml Intake Oral 480 ml 600 ml 480 ml IV Total 100 ml 100 ml Output Urine Total 2300 ml 1600 ml 3450 ml Gastric Drainage Total 50 ml Drainage Total 80 ml 50 ml 10 ml # Bowel Movements 0 0 Result Diagram: 07/25/17 0840 07/25/17 0840 Imaging Last Impressions Retroperitoneal Abscess Drainage 07/25/17 1429 Signed Impressions: Service Date/Time: Tuesday, July 25, 2017 14:57 - CONCLUSION: Uncomplicated CT guided drainage. Jake Kimble MD Renal Ultrasound 07/24/17 0000 Signed Impressions: Service Date/Time: Monday, July 24, 2017 11:00 - CONCLUSION: 1. Simple cyst right kidney. 2. Irregular hypoechoic mass posterior to the right kidney measuring 7.7 x 5.6 x 6.5 cm. A solid right renal mass is difficult to exclude. A followup CT examination of the abdomen with and without contrast is recommended to allow for further characterization of the complex appearing right perirenal versus possibly renal exophytic mass as well as a hypo-dense no non-cystic appearing mass at the lower pole of the right kidney noted on CT examination but not visualized sonographically. Right renal malignancy versus a non-renal origin metastatic lesion are differential diagnostic considerations. John Bell MD Abdomen/Pelvis CT 07/20/17 0000 Signed Impressions: Service Date/Time: June 16:49 - CONCLUSION: Complex mass posterior to the right kidney. Differential diagnosis includes abscess or hematoma. There are minimal pleural effusions. Mamadou Reinoso MD Head CT 07/15/17 0000 Signed Impressions: Service Date/Time: Saturday, July 15, 2017 17:36 - CONCLUSION: 1. 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 2. No acute hemorrhage, acute infarct, mass effect or extra axial fluid collections. Arron Mccain MD Chest X-Ray 07/15/17 0000 Signed Impressions: Service Date/Time: Saturday, July 15, 2017 19:34 - CONCLUSION: No acute disease. Arron Mccain MD Objective Remarks Drain over right flank, about10 cc of red fluid. No tenderness over right CVA. Crocker catheter in place Unlabored breathing No abdominal distention No acute distress Medications and IVs Current Medications Medications (Trade) Dose Ordered Sig/Víctor Route Start Time Stop Time Status Last Admin (Flomax) 0.4 mg HS PO 07/15/17 21:00 07/26/17 20:26 Sodium Chloride 1,000 ml @ 124 mls/hr Q8H4M IV 07/15/17 20:14 07/27/17 18:05 (NS Flush) 2 ml UNSCH PRN .XX 07/15/17 20:15 (NS Flush) 2 ml BID .XX 07/15/17 21:00 07/27/17 09:20 (Tylenol) 650 mg Q6H PRN PO 07/15/17 20:15 07/27/17 14:45 (Zofran Inj) 4 mg Q6H PRN IV 07/15/17 20:15 07/21/17 20:55 (Ambien) 5 mg HS PRN PO 07/15/17 20:15 07/23/17 01:48 (Duoneb Neb) 1 ampule Q2HR NEB PRN INH 07/15/17 20:15 (Heparin Inj) 5,000 units Q12H SQ 07/15/17 20:15 07/27/17 09:19 (Annetta-Colace) 1 tab BID PO 07/15/17 21:00 07/26/17 08:23 (Milk Of Magnesia Liq) 30 ml Q12H PRN PO 07/15/17 20:15 (Senokot) 17.2 mg Q12H PRN PO 07/15/17 20:15 (Dulcolax Supp) 10 mg DAILY PRN RECTAL 07/15/17 20:15 (Lactulose Liq) 30 ml DAILY PRN PO 07/15/17 20:15 Ertapenem 1000 mg/ Sodium Chloride 100 ml @ 200 mls/hr Q24H IV 07/19/17 05:00 07/27/17 05:51 (Norvasc) 5 mg DAILY PO 07/21/17 11:15 07/27/17 09:18 ([place] 5-325 Mg) 1 tab Q6H PRN PO 07/21/17 15:00 07/25/17 21:12 (Pepcid Inj) 20 mg Q12HR IV PUSH 07/21/17 21:00 07/27/17 09:19 A/P Assessment and Plan 1 Encephalopathy: Likely due to metabolic encephalopathy. Now resolved. 2. Initially admitted with Severe sepsis due to UTI/bacteremia ESBL positive - sepsis component resolved, hemodynamically stable afebrile - CT head negative, LP negative. Urine culture ESBL positive. Blood culture I/4 ESBL positive. - ID following. - Meropenem discontinued 07/18. Patient now on ertapenem. Sepsis component resolved. - Calciminer following and ordered CT scan abdomen and pelvis which showed complex mass concerning for abscess vs hematoma. Dr. Lloyd re-evaluated the pt and recommends. conservative management with antibiotics and supportive care. Repeat a renal ultrasound showed a 7.7cm/5.6x6.5cm irregular hyoechoic mass posterior to the right kidney. s/p bx TODAY, ? abscess, path pending. continue with Crocker catheter to gravity drainage and do not remove until cystoscopic evaluation performed (may be done as an outpatient with patient's established urologist). Patient status post IR renal biopsy with drain in place , wound culture from biopsy growing gram-negative rods suggesting abscess. Arthritis - Hold NSAIDs and methotrexate due to SIRS and acute kidney injury. Pain becomes unbearable, may consider restarting methotrexate. -Physical therapist following and patient can go home with no PT. -Pain improved with movement. Continue to encourage ambulation. Acute kidney injury - Most likelydue to prerenal azotemia. Resolved. - Avoid nephrotoxin. Monitor creatinine and urine output - Renal ultrasound shows 2 renal cysts. Hypertension - lisinopril held due to acute kidney injury. At the moment he is normotensive. - Hydralazine when necessary to keep SBP less than 160 - on amlodipine 5mg po daily. BPH - Flomax Anemia, normocytic normochromic -Per manager of school anemia most likely secondary to infection. at this time will only f/u prn. DVT GI prophylaxis - Teds SCDs. Awaiting path speciation and sensitivities. Discussed case with infectious disease, patient will need IV antibiotics and will need to stay through the weekend due to unavailability of infusion centers available as outpatient . Khris Millan MD Jul 27, 2017 16:19
[2017-07-27] MEDS: TAMSULOSIN HCL 0.4 MG CAP PO SCH (20:58)
[2017-07-28] VITALS (9 sets, daily range): BP systolic 94–124; BP diastolic 53–79; PULSE 66–73; RESP 18–19; TEMP 96.8–99.1; O2SAT 94–97
[2017-07-28] MEDS: ERTAPENEM 1,000 MG/NS 100 ML IV SCH ×2 (05:18)
[2017-07-28] MEDS: SODIUM CHLOR 0.9% 1000 ML INJ 1,000 ML IV SCH (05:20)
[2017-07-28] MEDS: DOCUSATE SODIUM 50 MG/SENNA 8.6 MG TAB PO SCH ×2 (09:00→21:00)
[2017-07-28] MEDS: amLODIPine BESYLATE 5 MG TAB PO SCH (09:11)
[2017-07-28] MEDS: HEPARIN SODIUM - SQ 10,000 UNITS/ML VIAL SQ SCH ×2 (09:11→20:15)
[2017-07-28] MEDS: FAMOTIDINE 20 MG/2 ML VIAL IV PUSH SCH ×2 (09:11→21:09)
[2017-07-28] MEDS: SODIUM CHLORIDE 0.9% FLUSH 10 ML FLUSH SCH ×2 (09:11→21:09)
[2017-07-28 15:47] LABS: HEMATOCRIT 29.4 % (39.0-51.0); MEAN CELL VOLUME 90.6 FL (80.0-100.0); MEAN CORPUSCULAR HEMOGLOBIN 29.2 PG (27.0-34.0); MEAN CORPUSCULAR HGB CONC 32.2 % (32.0-36.0); PLATELET COUNT 393 TH/MM3 (150-450); RED BLOOD COUNT 3.24 MIL/MM3 (4.50-5.90); RED CELL DISTRIBUTION WIDTH 17.9 % (11.6-17.2); REVIEW FLAG FINAL; WHITE BLOOD COUNT 5.6 TH/MM3 (4.0-11.0)
--- NOTE | 2017-07-28 15:55 | HHI.PR ---
Subjective Remarks Denies fevers/chills denies cp/sob denies back pain afebrile Objective Vitals Vital Signs Date Time Temp Pulse Resp B/P (MAP) Pulse Ox O2 Delivery O2 Flow Rate FiO2 07/28/17 12:00 99.1 73 18 119/64 (82) 94 07/28/17 11:35 99.1 73 18 119/64 (82) 94 07/28/17 08:00 97 Room Air 07/28/17 08:00 67 07/28/17 07:49 98.6 68 18 124/79 (94) 97 07/28/17 04:00 98.8 66 19 94/53 (67) 97 07/28/17 04:00 Room Air 07/28/17 00:00 98.6 70 18 116/65 (82) 96 07/28/17 00:00 Room Air 07/27/17 20:00 73 07/27/17 20:00 Room Air 07/27/17 20:00 98.5 68 18 109/72 (84) 96 07/27/17 16:00 99.0 87 17 122/61 (81) 95 I/O 07/27/17 07/27/17 07/27/17 07/28/17 07/28/17 07/28/17 07:00 15:00 23:00 07:00 15:00 23:00 Intake Total 580 ml 840 ml 1180 ml 800 ml Output Total 3460 ml 950 ml 2250 ml 1650 ml Balance -2880 ml -110 ml -1070 ml -850 ml Intake Oral 480 ml 840 ml 1180 ml 800 ml IV Total 100 ml Output Urine Total 3450 ml 950 ml 2250 ml 1650 ml Drainage Total 10 ml # Bowel Movements 0 0 Result Diagram: 07/25/17 0840 07/25/17 0840 Imaging Last Impressions Retroperitoneal Abscess Drainage 07/25/17 1429 Signed Impressions: Service Date/Time: Tuesday, July 25, 2017 14:57 - CONCLUSION: Uncomplicated CT guided drainage. Jake Kimble MD Renal Ultrasound 07/24/17 0000 Signed Impressions: Service Date/Time: Monday, July 24, 2017 11:00 - CONCLUSION: 1. Simple cyst right kidney. 2. Irregular hypoechoic mass posterior to the right kidney measuring 7.7 x 5.6 x 6.5 cm. A solid right renal mass is difficult to exclude. A followup CT examination of the abdomen with and without contrast is recommended to allow for further characterization of the complex appearing right perirenal versus possibly renal exophytic mass as well as a hypo-dense no non-cystic appearing mass at the lower pole of the right kidney noted on CT examination but not visualized sonographically. Right renal malignancy versus a non-renal origin metastatic lesion are differential diagnostic considerations. John Bell MD Abdomen/Pelvis CT 07/20/17 0000 Signed Impressions: Service Date/Time: June 16:49 - CONCLUSION: Complex mass posterior to the right kidney. Differential diagnosis includes abscess or hematoma. There are minimal pleural effusions. Mamadou Reinoso MD Head CT 07/15/17 0000 Signed Impressions: Service Date/Time: Saturday, July 15, 2017 17:36 - CONCLUSION: 1. 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 2. No acute hemorrhage, acute infarct, mass effect or extra axial fluid collections. Arron Mccain MD Chest X-Ray 07/15/17 0000 Signed Impressions: Service Date/Time: Saturday, July 15, 2017 19:34 - CONCLUSION: No acute disease. Arron Mccain MD Objective Remarks Drain over right flank, about10 cc of red fluid. No tenderness over right CVA. Crocker catheter in place Unlabored breathing No abdominal distention No acute distress Medications and IVs Current Medications Medications (Trade) Dose Ordered Sig/Víctor Route Start Time Stop Time Status Last Admin (Flomax) 0.4 mg HS PO 07/15/17 21:00 07/27/17 20:58 (NS Flush) 2 ml UNSCH PRN .XX 07/15/17 20:15 (NS Flush) 2 ml BID .XX 07/15/17 21:00 07/28/17 09:11 (Tylenol) 650 mg Q6H PRN PO 07/15/17 20:15 07/27/17 14:45 (Zofran Inj) 4 mg Q6H PRN IV 07/15/17 20:15 07/21/17 20:55 (Ambien) 5 mg HS PRN PO 07/15/17 20:15 07/23/17 01:48 (Duoneb Neb) 1 ampule Q2HR NEB PRN INH 07/15/17 20:15 (Heparin Inj) 5,000 units Q12H SQ 07/15/17 20:15 07/28/17 09:11 (Annetta-Colace) 1 tab BID PO 07/15/17 21:00 07/26/17 08:23 (Milk Of Magnesia Liq) 30 ml Q12H PRN PO 07/15/17 20:15 (Senokot) 17.2 mg Q12H PRN PO 07/15/17 20:15 (Dulcolax Supp) 10 mg DAILY PRN RECTAL 07/15/17 20:15 (Lactulose Liq) 30 ml DAILY PRN PO 07/15/17 20:15 Ertapenem 1000 mg/ Sodium Chloride 100 ml @ 200 mls/hr Q24H IV 07/19/17 05:00 07/28/17 05:18 (Norvasc) 5 mg DAILY PO 07/21/17 11:15 07/28/17 09:11 ([place] 5-325 Mg) 1 tab Q6H PRN PO 07/21/17 15:00 07/25/17 21:12 (Pepcid Inj) 20 mg Q12HR IV PUSH 07/21/17 21:00 07/28/17 09:11 A/P Assessment and Plan 1 Encephalopathy: Likely due to metabolic encephalopathy. Now resolved. 2. Severe sepsis due to UTI/bacteremia ESBL positive - sepsis component resolved , hemodynamically stable afebrile - CT head negative, LP negative. Urine culture ESBL positive. Blood culture I/4 ESBL positive. - ID consulted and following patient. - Meropenem discontinued 07/18. Patient now on ertapenem. Sepsis component resolved. - CT abdomen and pelvis showed a retroperitoneal abscess as described above. Dr. Lloyd reevaluated patient and recommended, and several thick management with antibiotics and supportive care, however repeat ultrasound showed a 7.7 cm 5.6 cm 6.5 cm irregular hypoechoic mass was due to the right kidney status post CT-guided drainage by IR. -Wound culture from retroperitoneal collection is growing Escherichia coli ESBL positive. 07/28 CT abdomen and pelvis ordered by interventional radiology. Will follow. Arthritis - NSAIDs and methotrexate held due to SIRS and acute kidney injury. -Encourage ambulation. - Seems to be stable. Acute kidney injury -Patient evaluated by urology. UTI likely related to bladder outlet obstruction. - Avoid nephrotoxin. Monitor creatinine and urine output - Renal ultrasound shows 2 renal cysts. 07/28 urology recommended not removing the Crocker catheter to gravity drainage until urologic workup is completed. Hypertension - Lisinopril held due to acute kidney injury. - Continue amlodipine 5 mg by mouth daily. - Patient's blood pressure is stable. - Continue hydralazine as needed to keep systolic blood pressure less than 160. BPH - Flomax Anemia, normocytic normochromic -Per supply technician anemia most likely secondary to infection. at this time will only f/u prn. - hemoglobin stable. DVT GI prophylaxis - Teds SCDs. Discharge Planning needs ID clearance - currently on IV antibiotics. Also still has drain. Khris Millan MD Jul 28, 2017 15:55
[2017-07-28 16:18] LABS: POTASSIUM 3.5 MEQ/L (3.5-5.1)
--- NOTE | 2017-07-28 17:34 | RADRPT ---
EXAM DATE/TIME: 07/28/2017 17:12 [facility] COMPARISON: CT ABDOMEN & PELVIS W CONTRAST, July 20, 2017, 16:49. INDICATIONS : Diffuse abdomen pain, abscess. ORAL CONTRAST: No oral contrast ingested. RADIATION DOSE: 13.13 CTDIvol (mGy) MEDICAL HISTORY : None SURGICAL HISTORY : Fusion, cervical. Testicular implants, shoulder rupture ENCOUNTER: Initial ACUITY: 1 day PAIN SCALE: 7/10 LOCATION: Right upper quadrant TECHNIQUE: Volumetric scanning of the abdomen was performed. Using automated exposure control and adjustment of the mA and/or kV according to patient size, radiation dose was kept as low as reasonably achievable to obtain optimal diagnostic quality images. DICOM format image data is available electronically for review and comparison. FINDINGS: Right flank perinephric abscess drainage catheter remains in place. There is a soft tissue density co llection remaining around the drainage catheter. Most of the low density fluid has been evacuated. Th e kidney is otherwise stable with a cyst in the medial upper pole cortex and tiny cysts in the lower pole. Contralateral left kidney is stable and unremarkable. Visualized portions of liver, spleen, sun creas and adrenals are stable and benign. The bowel structures are focally unremarkable. Vascular str uctures are stable in appearance. The retroperitoneum is otherwise stable and benign. A small fat con taining umbilical hernia is again noted. CONCLUSION: Complete or near complete evacuation of fluid density from the right perinephric abscess collection. Soft tissue density remaining around the drainage catheter may reflect residual scarring or complex or hemorrhagic fluid. Dustin Washington MD on July 28, 2017 at 17:26 Board Certified Radiologist. This report was verified electronically.
[2017-07-28] MEDS: ACETAMINOPHEN 325 MG TAB PO PRN (17:39)
[2017-07-28] MEDS: TAMSULOSIN HCL 0.4 MG CAP PO SCH (21:09)
[2017-07-29] VITALS: BP 129/81; PULSE 70; RESP 16; TEMP 98; O2SAT 97
[2017-07-29 04:00] VITALS: BP 116/74; PULSE 72; RESP 18; TEMP 98; O2SAT 97
[2017-07-29] MEDS: ERTAPENEM 1,000 MG/NS 100 ML IV SCH ×2 (05:09)
[2017-07-29] MEDS: ACETAMINOPHEN/HYDROcodone 325 MG/5 MG TAB PO PRN (05:23)
[2017-07-29 08:00] VITALS: BP 131/57; PULSE 73; PULSE 78; RESP 18; TEMP 98.4; O2SAT 97
[2017-07-29] MEDS: DOCUSATE SODIUM 50 MG/SENNA 8.6 MG TAB PO SCH ×2 (09:00→19:59)
[2017-07-29] MEDS: FAMOTIDINE 20 MG/2 ML VIAL IV PUSH SCH ×2 (09:42→20:00)
[2017-07-29] MEDS: SODIUM CHLORIDE 0.9% FLUSH 10 ML FLUSH SCH ×2 (09:43→20:00)
[2017-07-29] MEDS: amLODIPine BESYLATE 5 MG TAB PO SCH (09:44)
[2017-07-29] MEDS: HEPARIN SODIUM - SQ 10,000 UNITS/ML VIAL SQ SCH ×2 (09:44→20:01)
--- NOTE | 2017-07-29 11:00 | HHI.PR ---
Subjective Remarks In bed, sleepy. Says she is not sleeping during the night. Says he has back pain , fairly controlled by meds., thinks because he is not moving much he has more pain. No fever or chills. No abdominal pain . No cp, sob, cough. Has a good urine OP Objective Vitals Vital Signs Date Time Temp Pulse Resp B/P (MAP) Pulse Ox O2 Delivery O2 Flow Rate FiO2 07/29/17 08:00 98.4 73 18 131/57 (81) 97 07/29/17 04:00 98.0 72 18 116/74 (88) 97 07/29/17 00:00 98.0 70 16 129/81 (97) 97 07/29/17 00:00 Room Air 07/28/17 20:00 Room Air 07/28/17 20:00 99.0 73 18 119/70 (86) 96 07/28/17 20:00 73 07/28/17 18:44 18 07/28/17 16:00 96.8 73 18 116/70 (85) 97 07/28/17 15:44 96.8 73 18 116/70 (85) 97 07/28/17 12:00 99.1 73 18 119/64 (82) 94 07/28/17 11:35 99.1 73 18 119/64 (82) 94 I/O 07/28/17 07/28/17 07/28/17 07/29/17 07/29/17 07/29/17 06:59 14:59 22:59 06:59 14:59 22:59 Intake Total 1180 ml 800 ml 960 ml Output Total 2250 ml 1650 ml 1715 ml 1600 ml Balance -1070 ml -850 ml -755 ml -1600 ml Intake Oral 1180 ml 800 ml 960 ml Output Urine Total 2250 ml 1650 ml 1700 ml 1600 ml Drainage Total 15 ml # Bowel Movements 0 1 Result Diagram: 07/28/17 1452 07/28/17 1452 Imaging Last Impressions Abdomen CT 07/28/17 0000 Signed Impressions: Service Date/Time: Friday, July 28, 2017 17:12 - CONCLUSION: Complete or near complete evacuation of fluid density from the right perinephric abscess collection. Soft tissue density remaining around the drainage catheter may reflect residual scarring or complex or hemorrhagic fluid. Dustin Washington MD Retroperitoneal Abscess Drainage 07/25/17 1429 Signed Impressions: Service Date/Time: Tuesday, July 25, 2017 14:57 - CONCLUSION: Uncomplicated CT guided drainage. Jake Kimble MD Renal Ultrasound 07/24/17 0000 Signed Impressions: Service Date/Time: Monday, July 24, 2017 11:00 - CONCLUSION: 1. Simple cyst right kidney. 2. Irregular hypoechoic mass posterior to the right kidney measuring 7.7 x 5.6 x 6.5 cm. A solid right renal mass is difficult to exclude. A followup CT examination of the abdomen with and without contrast is recommended to allow for further characterization of the complex appearing right perirenal versus possibly renal exophytic mass as well as a hypo-dense no non-cystic appearing mass at the lower pole of the right kidney noted on CT examination but not visualized sonographically. Right renal malignancy versus a non-renal origin metastatic lesion are differential diagnostic considerations. John Bell MD Abdomen/Pelvis CT 07/20/17 0000 Signed Impressions: Service Date/Time: June 16:49 - CONCLUSION: Complex mass posterior to the right kidney. Differential diagnosis includes abscess or hematoma. There are minimal pleural effusions. Mamadou Reinoso MD Head CT 07/15/17 0000 Signed Impressions: Service Date/Time: Saturday, July 15, 2017 17:36 - CONCLUSION: 1. 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 2. No acute hemorrhage, acute infarct, mass effect or extra axial fluid collections. Arron Mccain MD Chest X-Ray 07/15/17 0000 Signed Impressions: Service Date/Time: Saturday, July 15, 2017 19:34 - CONCLUSION: No acute disease. Arron Mccain MD Objective Remarks GENERAL: 61 yo male, in bed appears in nad. CARDIOVASCULAR: Regular rate and rhythm without murmurs, gallops, or rubs. RESPIRATORY: Breath sounds equal bilaterally. No accessory muscle use. GASTROINTESTINAL: Abdomen soft, non-tender, nondistended. MUSCULOSKELETAL: No cyanosis, or edema. BACK: Drain over right flank, about10 cc of red fluid. No tenderness over right CVA. Crocker catheter in place A/P Assessment and Plan 1 Encephalopathy: Likely due to metabolic encephalopathy. Now resolved. 2. Severe sepsis due to UTI/bacteremia ESBL positive - sepsis component resolved , hemodynamically stable afebrile - CT head negative, LP negative. Urine culture ESBL positive. Blood culture I/4 ESBL positive. - ID consulted and following patient. - Meropenem discontinued 07/18. Patient now on ertapenem. Sepsis component resolved. - CT abdomen and pelvis showed a retroperitoneal abscess as described above. Dr. Lloyd reevaluated patient and recommended, and several thick management with antibiotics and supportive care, however repeat ultrasound showed a 7.7 cm 5.6 cm 6.5 cm irregular hypoechoic mass was due to the right kidney status post CT-guided drainage by IR. -Wound culture from retroperitoneal collection is growing Escherichia coli ESBL positive. 07/28 CT abdomen and pelvis ordered by interventional radiology. Will follow. Arthritis - NSAIDs and methotrexate held due to SIRS and acute kidney injury. -Encourage ambulation. - Seems to be stable. Acute kidney injury -Patient evaluated by urology. UTI likely related to bladder outlet obstruction. - Avoid nephrotoxin. Monitor creatinine and urine output - Renal ultrasound shows 2 renal cysts. 07/28 urology recommended not removing the Crocker catheter to gravity drainage until urologic workup is completed. Hypertension - Lisinopril held due to acute kidney injury. - Continue amlodipine 5 mg by mouth daily. - Patient's blood pressure is stable. - Continue hydralazine as needed to keep systolic blood pressure less than 160. 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 at this time will only f/u prn. - hemoglobin stable. DVT GI prophylaxis - Teds SCDs. Discharge Planning Not ready for DC difficult DC 2/2 [facility]. Needs ID clearance - currently on IV antibiotics. Also still has drain. Mary Lou Telles MD Jul 29, 2017 11:00
[2017-07-29 12:00] VITALS: BP 123/71; PULSE 77; RESP 18; TEMP 97.8; O2SAT 96
[2017-07-29 16:00] VITALS: BP 121/67; PULSE 69; RESP 18; TEMP 98.5; O2SAT 98
[2017-07-29] MEDS: TAMSULOSIN HCL 0.4 MG CAP PO SCH (19:59)
[2017-07-29] MEDS: ACETAMINOPHEN 325 MG TAB PO PRN (19:59)
[2017-07-29 20:00] VITALS: BP 128/75; PULSE 75; PULSE 78; RESP 18; TEMP 98.6; O2SAT 96
[2017-07-30] VITALS: BP 131/77; PULSE 71; RESP 18; TEMP 97.9; O2SAT 97
[2017-07-30] MEDS: ACETAMINOPHEN 325 MG TAB PO PRN ×2 (02:13→22:10)
[2017-07-30 04:00] VITALS: BP 131/80; PULSE 63; RESP 18; TEMP 97.9; O2SAT 98
[2017-07-30] MEDS: ERTAPENEM 1,000 MG/NS 100 ML IV SCH ×2 (06:30)
[2017-07-30 08:00] VITALS: BP 141/89; PULSE 70; RESP 16; TEMP 98.8; O2SAT 97
[2017-07-30] MEDS: DOCUSATE SODIUM 50 MG/SENNA 8.6 MG TAB PO SCH ×2 (09:00→21:00)
--- NOTE | 2017-07-30 09:33 | HHI.PR ---
Subjective Remarks In bed. Says he has some back pain on /off. Drain in place, minimal amount of serosanguinous fluid. No n/v/d/c. Denies chest pain or sob. No abdominal pain. No urinary complaints. Feels tired, however he did not sleep overnight well. Objective Vitals Vital Signs Date Time Temp Pulse Resp B/P (MAP) Pulse Ox O2 Delivery O2 Flow Rate FiO2 07/30/17 04:00 97.9 63 18 131/80 (97) 98 07/30/17 00:00 97.9 71 18 131/77 (95) 97 07/29/17 20:00 98.6 78 18 128/75 (92) 96 07/29/17 20:00 75 07/29/17 16:00 98.5 69 18 121/67 (85) 98 07/29/17 12:00 97.8 77 18 123/71 (88) 96 I/O 07/29/17 07/29/17 07/29/17 07/30/17 07/30/17 07/30/17 07:00 15:00 23:00 07:00 15:00 23:00 Intake Total 1140 ml Output Total 1600 ml 1600 ml 1025 ml Balance -1600 ml -460 ml -1025 ml Intake Oral 1140 ml Output Urine Total 1600 ml 1600 ml 1000 ml Drainage Total 25 ml # Bowel Movements 0 Result Diagram: 07/28/17 1452 07/28/17 1452 Imaging Last Impressions Abdomen CT 07/28/17 0000 Signed Impressions: Service Date/Time: Friday, July 28, 2017 17:12 - CONCLUSION: Complete or near complete evacuation of fluid density from the right perinephric abscess collection. Soft tissue density remaining around the drainage catheter may reflect residual scarring or complex or hemorrhagic fluid. Dustin Washington MD Retroperitoneal Abscess Drainage 07/25/17 1429 Signed Impressions: Service Date/Time: Tuesday, July 25, 2017 14:57 - CONCLUSION: Uncomplicated CT guided drainage. Jake Kimble MD Renal Ultrasound 07/24/17 0000 Signed Impressions: Service Date/Time: Monday, July 24, 2017 11:00 - CONCLUSION: 1. Simple cyst right kidney. 2. Irregular hypoechoic mass posterior to the right kidney measuring 7.7 x 5.6 x 6.5 cm. A solid right renal mass is difficult to exclude. A followup CT examination of the abdomen with and without contrast is recommended to allow for further characterization of the complex appearing right perirenal versus possibly renal exophytic mass as well as a hypo-dense no non-cystic appearing mass at the lower pole of the right kidney noted on CT examination but not visualized sonographically. Right renal malignancy versus a non-renal origin metastatic lesion are differential diagnostic considerations. John Bell MD Abdomen/Pelvis CT 07/20/17 0000 Signed Impressions: Service Date/Time: June 16:49 - CONCLUSION: Complex mass posterior to the right kidney. Differential diagnosis includes abscess or hematoma. There are minimal pleural effusions. Mamadou Reinoso MD Head CT 07/15/17 0000 Signed Impressions: Service Date/Time: Saturday, July 15, 2017 17:36 - CONCLUSION: 1. 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 2. No acute hemorrhage, acute infarct, mass effect or extra axial fluid collections. Arron Mccain MD Chest X-Ray 07/15/17 0000 Signed Impressions: Service Date/Time: Saturday, July 15, 2017 19:34 - CONCLUSION: No acute disease. Arron Mccain MD Objective Remarks GENERAL: 61 yo male, in bed appears in nad. CARDIOVASCULAR: Regular rate and rhythm without murmurs, gallops, or rubs. RESPIRATORY: Breath sounds equal bilaterally. No accessory muscle use. GASTROINTESTINAL: Abdomen soft, non-tender, nondistended. MUSCULOSKELETAL: No cyanosis, or edema. BACK: Drain over right flank, about10 cc of red fluid. No tenderness over right CVA. Crocker catheter in place A/P Assessment and Plan Encephalopathy: Likely due to metabolic encephalopathy. Now resolved. Severe sepsis due to UTI/bacteremia ESBL positive - sepsis component resolved, hemodynamically stable afebrile Right perinephric abscess - CT head negative, LP negative. Urine culture ESBL positive. Blood culture I/4 ESBL positive. - ID consulted and following patient. - Meropenem discontinued 07/18. Patient now on ertapenem. Sepsis component resolved. - CT abdomen and pelvis showed a retroperitoneal abscess as described above. Dr. Lloyd reevaluated patient and recommended, and several thick management with antibiotics and supportive care, however repeat ultrasound showed a 7.7 cm 5.6 cm 6.5 cm irregular hypoechoic mass was due to the right kidney status post CT-guided drainage by IR. -Wound culture from retroperitoneal collection is growing Escherichia coli ESBL positive. 07/28 CT abdomen and pelvis ordered by interventional radiology. CT reviewed and shows nearly complete resolution of perinephric abscess Arthritis - NSAIDs and methotrexate held due to SIRS and acute kidney injury. -Encourage ambulation. - Seems to be stable. Acute kidney injury -Patient evaluated by urology. UTI likely related to bladder outlet obstruction. - Avoid nephrotoxin. Monitor creatinine and urine output - Renal ultrasound shows 2 renal cysts. 07/28 urology recommended not removing the Crocker catheter to gravity drainage until urologic workup is completed. Hypertension - Lisinopril held due to acute kidney injury. - Continue amlodipine 5 mg by mouth daily. - Patient's blood pressure is stable. - Continue hydralazine as needed to keep systolic blood pressure less than 160. 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 at this time will only f/u prn. - hemoglobin stable. DVT GI prophylaxis - Teds SCDs. Discharge Planning Not ready for DC difficult DC 2/2 [facility]. Needs ID clearance - currently on IV antibiotics. Also still has drain. Mary Lou Telles MD Jul 30, 2017 09:33
[2017-07-30] MEDS: FAMOTIDINE 20 MG/2 ML VIAL IV PUSH SCH ×2 (10:48→22:12)
[2017-07-30] MEDS: amLODIPine BESYLATE 5 MG TAB PO SCH (10:49)
[2017-07-30] MEDS: HEPARIN SODIUM - SQ 10,000 UNITS/ML VIAL SQ SCH ×2 (10:49→20:15)
[2017-07-30] MEDS: SODIUM CHLORIDE 0.9% FLUSH 10 ML FLUSH SCH ×2 (10:50→22:11)
[2017-07-30 12:00] VITALS: BP 136/78; PULSE 76; RESP 16; TEMP 98.7; O2SAT 97
[2017-07-30 16:01] VITALS: BP 124/66; PULSE 76; RESP 16; TEMP 98.8; O2SAT 98
[2017-07-30 20:00] VITALS: BP 123/70; PULSE 76; PULSE 78; RESP 18; TEMP 100.4; O2SAT 98
[2017-07-30] MEDS: TAMSULOSIN HCL 0.4 MG CAP PO SCH (22:10)
[2017-07-31] VITALS (7 sets, daily range): BP systolic 117–140; BP diastolic 66–76; PULSE 64–86; RESP 18–20; TEMP 98–99.3; O2SAT 94–98
[2017-07-31] MEDS: ZOLPIDEM TARTRATE 5 MG TAB PO PRN (00:46)
[2017-07-31] MEDS: ERTAPENEM 1,000 MG/NS 100 ML IV SCH ×2 (06:23)
[2017-07-31] MEDS: ACETAMINOPHEN 325 MG TAB PO PRN (06:26)
[2017-07-31] MEDS: DOCUSATE SODIUM 50 MG/SENNA 8.6 MG TAB PO SCH ×2 (09:00→20:31)
[2017-07-31] MEDS: HEPARIN SODIUM - SQ 10,000 UNITS/ML VIAL SQ SCH ×2 (09:13→20:30)
[2017-07-31] MEDS: FAMOTIDINE 20 MG/2 ML VIAL IV PUSH SCH ×2 (09:13→20:31)
[2017-07-31] MEDS: amLODIPine BESYLATE 5 MG TAB PO SCH (09:13)
--- NOTE | 2017-07-31 11:56 | RADRPT ---
EXAM DATE/TIME: 07/31/2017 11:36 [facility] COMPARISON: CT ABDOMEN W/O CONTRAST, July 28, 2017, 17:12. INDICATIONS : Evaluate drain. ORAL CONTRAST: No oral contrast ingested. RADIATION DOSE: 10.41 CTDIvol (mGy) MEDICAL HISTORY : Renal calculi. Asthma. SURGICAL HISTORY : None. ENCOUNTER: Initial ACUITY: 1 day PAIN SCALE: 0/10 LOCATION: abdomen TECHNIQUE: Volumetric scanning of the abdomen was performed. Using automated exposure control and adjustment of the mA and/or kV according to patient size, radiation dose was kept as low as reasonably achievable to obtain optimal diagnostic quality images. DICOM format image data is available electronically for review and comparison. FINDINGS: LOWER LUNGS: Minimal right basilar atelectasis. LIVER: Homogeneous density without lesion. There is no dilation of the biliary tree. No calcified gallston es. SPLEEN: Normal size without lesion. PANCREAS: Within normal limits. KIDNEYS: There is a stable right posterior perinephric pigtail drainage catheter. There is continued residual soft tissue density in the right posterior perinephric space measuring approximately 5.6 x 3.8 cm unc hanged in size from prior examination. There kidneys are symmetrical in size without evidence for hyd ronephrosis. Redemonstration of cyst in superior pole the right kidney. No radiopaque renal calculi. ADRENAL GLANDS: Within normal limits. AORTA/RETROPERITONEAL: There is no aneurysm or lymphadenopathy. BOWEL/MESENTERY: The stomach and visualized small and large bowel demonstrate no abnormality. MUSCULOSKELETAL: Within normal limits for patient age. CONCLUSION: Stable right posterior perinephric drainage catheter with stable regional small residual soft tissue density. No interval new fluid collections or additional acute animality. Cedrick Silva MD on July 31, 2017 at 11:49 Board Certified Radiologist. This report was verified electronically.
--- NOTE | 2017-07-31 12:44 | HHI.PR ---
Subjective Remarks Patient in the chair, says she would like to go home with home health and not to SNF. Drain still in place, with minimal discharg, IR will come and remove the drain Patient says he has no back pain at this time. No fever or chills./ No n/v/d/c. Objective Vitals Vital Signs Date Time Temp Pulse Resp B/P (MAP) Pulse Ox O2 Delivery O2 Flow Rate FiO2 07/31/17 08:00 98.9 74 18 117/72 (87) 94 07/31/17 04:00 98.0 64 19 127/71 (89) 96 07/31/17 00:00 98.3 71 18 120/74 (89) 98 07/30/17 20:00 100.4 78 18 123/70 (87) 98 07/30/17 20:00 76 07/30/17 16:01 98.8 76 16 124/66 (85) 98 I/O 07/30/17 07/30/17 07/30/17 07/31/17 07/31/17 07/31/17 07:00 15:00 23:00 07:00 15:00 23:00 Intake Total 380 ml 650 ml Output Total 1025 ml 2110 ml 2100 ml Balance -1025 ml -1730 ml -1450 ml Intake Oral 380 ml 650 ml Output Urine Total 1000 ml 2100 ml 2100 ml Drainage Total 25 ml 10 ml # Bowel Movements 2 0 Result Diagram: 07/28/17 1452 07/28/17 1452 Imaging Last Impressions Abdomen CT 07/31/17 1102 Signed Impressions: Service Date/Time: Monday, July 31, 2017 11:36 - CONCLUSION: Stable right posterior perinephric drainage catheter with stable regional small residual soft tissue density. No interval new fluid collections or additional acute animality. Cedrick Silva MD Retroperitoneal Abscess Drainage 07/25/17 1429 Signed Impressions: Service Date/Time: Tuesday, July 25, 2017 14:57 - CONCLUSION: Uncomplicated CT guided drainage. Jake Kimble MD Renal Ultrasound 07/24/17 0000 Signed Impressions: Service Date/Time: Monday, July 24, 2017 11:00 - CONCLUSION: 1. Simple cyst right kidney. 2. Irregular hypoechoic mass posterior to the right kidney measuring 7.7 x 5.6 x 6.5 cm. A solid right renal mass is difficult to exclude. A followup CT examination of the abdomen with and without contrast is recommended to allow for further characterization of the complex appearing right perirenal versus possibly renal exophytic mass as well as a hypo-dense no non-cystic appearing mass at the lower pole of the right kidney noted on CT examination but not visualized sonographically. Right renal malignancy versus a non-renal origin metastatic lesion are differential diagnostic considerations. John Bell MD Abdomen/Pelvis CT 07/20/17 0000 Signed Impressions: Service Date/Time: June 16:49 - CONCLUSION: Complex mass posterior to the right kidney. Differential diagnosis includes abscess or hematoma. There are minimal pleural effusions. Mamadou Reinoso MD Head CT 07/15/17 0000 Signed Impressions: Service Date/Time: Saturday, July 15, 2017 17:36 - CONCLUSION: 1. 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 2. No acute hemorrhage, acute infarct, mass effect or extra axial fluid collections. Arron Mccain MD Chest X-Ray 07/15/17 0000 Signed Impressions: Service Date/Time: Saturday, July 15, 2017 19:34 - CONCLUSION: No acute disease. Arron Mccain MD Objective Remarks GENERAL: 61 yo male, in bed appears in nad. CARDIOVASCULAR: Regular rate and rhythm without murmurs, gallops, or rubs. RESPIRATORY: Breath sounds equal bilaterally. No accessory muscle use. GASTROINTESTINAL: Abdomen soft, non-tender, nondistended. MUSCULOSKELETAL: No cyanosis, or edema. BACK: Drain over right flank, about10 cc of red fluid. No tenderness over right CVA. Crocker catheter in place A/P Assessment and Plan Encephalopathy: Likely due to metabolic encephalopathy. Now resolved. Severe sepsis due to UTI/bacteremia ESBL positive - sepsis component resolved, hemodynamically stable afebrile Right perinephric abscess - CT head negative, LP negative. Urine culture ESBL positive. Blood culture I/4 ESBL positive. - ID consulted and following patient. - Meropenem discontinued 07/18. Patient now on ertapenem. Sepsis component resolved. - CT abdomen and pelvis showed a retroperitoneal abscess as described above. Dr. Lloyd reevaluated patient and recommended, and several thick management with antibiotics and supportive care, however repeat ultrasound showed a 7.7 cm 5.6 cm 6.5 cm irregular hypoechoic mass was due to the right kidney status post CT-guided drainage by IR. -Wound culture from retroperitoneal collection is growing Escherichia coli ESBL positive. 07/28 CT abdomen and pelvis ordered by interventional radiology. CT reviewed and shows nearly complete resolution of perinephric abscess Arthritis - NSAIDs and methotrexate held due to SIRS and acute kidney injury. -Encourage ambulation. - Seems to be stable. Acute kidney injury -Patient evaluated by urology. UTI likely related to bladder outlet obstruction. - Avoid nephrotoxin. Monitor creatinine and urine output - Renal ultrasound shows 2 renal cysts. 07/28 urology recommended not removing the Crocker catheter to gravity drainage until urologic workup is completed. Hypertension - Lisinopril held due to acute kidney injury. - Continue amlodipine 5 mg by mouth daily. - Patient's blood pressure is stable. - Continue hydralazine as needed to keep systolic blood pressure less than 160. 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 at this time will only f/u prn. - hemoglobin stable. DVT GI prophylaxis - Teds SCDs. Discharge Planning Not ready for DC difficult DC 2/2 [facility]. Needs ID clearance - currently on IV antibiotics. Also still has drain. Mary Lou Telles MD Jul 31, 2017 12:44
[2017-07-31] MEDS: TAMSULOSIN HCL 0.4 MG CAP PO SCH (20:29)
[2017-07-31] MEDS: SODIUM CHLORIDE 0.9% FLUSH 10 ML FLUSH SCH (20:29)
[2017-08-01] VITALS (7 sets, daily range): BP systolic 117–130; BP diastolic 69–78; PULSE 66–83; RESP 16–19; TEMP 98.1–99.3; O2SAT 94–97
[2017-08-01] MEDS: ERTAPENEM 1,000 MG/NS 100 ML IV SCH ×2 (04:59)
[2017-08-01] MEDS: HEPARIN SODIUM - SQ 10,000 UNITS/ML VIAL SQ SCH ×2 (09:15→20:15)
[2017-08-01] MEDS: SODIUM CHLORIDE 0.9% FLUSH 10 ML FLUSH SCH ×2 (09:15→21:49)
[2017-08-01] MEDS: FAMOTIDINE 20 MG/2 ML VIAL IV PUSH SCH ×2 (09:15→21:48)
[2017-08-01] MEDS: amLODIPine BESYLATE 5 MG TAB PO SCH (09:15)
[2017-08-01] MEDS: SODIUM CHLORIDE 0.9% 10 ML VIAL IRRIGATION SCH (09:15)
[2017-08-01] MEDS: DOCUSATE SODIUM 50 MG/SENNA 8.6 MG TAB PO SCH ×2 (09:16→21:00)
--- NOTE | 2017-08-01 10:43 | HHI.PR ---
Subjective Remarks In the chair. Says did not have breakfast delivered. No fever or chills. Drain was not removed By IR yesterday. Has no pain at this time. Objective Vitals Vital Signs Date Time Temp Pulse Resp B/P (MAP) Pulse Ox O2 Delivery O2 Flow Rate FiO2 08/01/17 09:53 66 08/01/17 08:00 98.1 76 18 124/69 (87) 96 08/01/17 04:00 98.3 74 18 122/78 (93) 97 08/01/17 00:00 98.1 80 19 126/76 (93) 97 07/31/17 20:00 98.9 83 20 140/76 (97) 98 07/31/17 19:59 84 07/31/17 16:00 99.3 86 18 126/72 (90) 96 07/31/17 12:00 99.1 81 18 126/66 (86) 96 I/O 07/31/17 07/31/17 07/31/17 08/01/17 08/01/17 08/01/17 07:00 15:00 23:00 07:00 15:00 23:00 Intake Total 650 ml 1140 ml 480 ml Output Total 2100 ml 1603 ml 2000 ml Balance -1450 ml -463 ml -1520 ml Intake Oral 650 ml 1140 ml 480 ml Output Urine Total 2100 ml 1600 ml 2000 ml Drainage Total 3 ml # Bowel Movements 0 1 0 Result Diagram: 07/28/17 1452 07/28/17 1452 Imaging Last Impressions Abdomen CT 07/31/17 1102 Signed Impressions: Service Date/Time: Monday, July 31, 2017 11:36 - CONCLUSION: Stable right posterior perinephric drainage catheter with stable regional small residual soft tissue density. No interval new fluid collections or additional acute animality. Cedrick Silva MD Retroperitoneal Abscess Drainage 07/25/17 1429 Signed Impressions: Service Date/Time: Tuesday, July 25, 2017 14:57 - CONCLUSION: Uncomplicated CT guided drainage. Jake Kimble MD Renal Ultrasound 07/24/17 0000 Signed Impressions: Service Date/Time: Monday, July 24, 2017 11:00 - CONCLUSION: 1. Simple cyst right kidney. 2. Irregular hypoechoic mass posterior to the right kidney measuring 7.7 x 5.6 x 6.5 cm. A solid right renal mass is difficult to exclude. A followup CT examination of the abdomen with and without contrast is recommended to allow for further characterization of the complex appearing right perirenal versus possibly renal exophytic mass as well as a hypo-dense no non-cystic appearing mass at the lower pole of the right kidney noted on CT examination but not visualized sonographically. Right renal malignancy versus a non-renal origin metastatic lesion are differential diagnostic considerations. John Bell MD Abdomen/Pelvis CT 07/20/17 0000 Signed Impressions: Service Date/Time: June 16:49 - CONCLUSION: Complex mass posterior to the right kidney. Differential diagnosis includes abscess or hematoma. There are minimal pleural effusions. Mamadou Reinoso MD Head CT 07/15/17 0000 Signed Impressions: Service Date/Time: Saturday, July 15, 2017 17:36 - CONCLUSION: 1. 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 2. No acute hemorrhage, acute infarct, mass effect or extra axial fluid collections. Arron Mccain MD Chest X-Ray 07/15/17 0000 Signed Impressions: Service Date/Time: Saturday, July 15, 2017 19:34 - CONCLUSION: No acute disease. Arron Mccain MD Objective Remarks GENERAL: 61 yo male, in bed appears in nad. CARDIOVASCULAR: Regular rate and rhythm without murmurs, gallops, or rubs. RESPIRATORY: Breath sounds equal bilaterally. No accessory muscle use. GASTROINTESTINAL: Abdomen soft, non-tender, nondistended. MUSCULOSKELETAL: No cyanosis, or edema. BACK: Drain over right flank, about10 cc of red fluid. No tenderness over right CVA. Crocker catheter in place A/P Assessment and Plan Encephalopathy: Likely due to metabolic encephalopathy. Now resolved. Severe sepsis due to UTI/bacteremia ESBL positive - sepsis component resolved, hemodynamically stable afebrile Right perinephric abscess - CT head negative, LP negative. Urine culture ESBL positive. Blood culture I/4 ESBL positive. - ID consulted and following patient. - Meropenem discontinued 07/18. Patient now on ertapenem. Sepsis component resolved. - CT abdomen and pelvis showed a retroperitoneal abscess as described above. Dr. Lolyd reevaluated patient and recommended, and several thick management with antibiotics and supportive care, however repeat ultrasound showed a 7.7 cm 5.6 cm 6.5 cm irregular hypoechoic mass was due to the right kidney status post CT-guided drainage by IR. -Wound culture from retroperitoneal collection is growing Escherichia coli ESBL positive. 07/28 CT abdomen and pelvis ordered by interventional radiology. CT reviewed and shows nearly complete resolution of perinephric abscess Arthritis - NSAIDs and methotrexate held due to SIRS and acute kidney injury. -Encourage ambulation. - Seems to be stable. Acute kidney injury -Patient evaluated by urology. UTI likely related to bladder outlet obstruction. - Avoid nephrotoxin. Monitor creatinine and urine output - Renal ultrasound shows 2 renal cysts. 07/28 urology recommended not removing the Crocker catheter to gravity drainage until urologic workup is completed. Hypertension - Lisinopril held due to acute kidney injury. - Continue amlodipine 5 mg by mouth daily. - Patient's blood pressure is stable. - Continue hydralazine as needed to keep systolic blood pressure less than 160. BPH - Flomax Anemia, normocytic normochromic -Per rollout manager anemia most likely secondary to infection. at this time will only f/u prn. - hemoglobin stable. DVT GI prophylaxis - Teds SCDs. Discharge Planning Not ready for DC difficult DC 12/22 [facility]. Needs ID clearance - currently on IV antibiotics. Also still has drain. Per ID note concern for compliance patient might be a candidate for inpatient IV abx administration , ID will reevaluate after [facility] Mary Lou Telles MD Aug 01, 2017 10:43
--- NOTE | 2017-08-01 15:46 | HHI.IDPN ---
Subjective Subjective Remarks Mr. Vargas is a 61-year-old white male with past medical history of rheumatoid arthritis was on methotrexate, osteoarthritis, prostatectomy enlargement reportedly benign. He also reports history of recurrent urinary tract infection is most recent urinary tract infection was several months back. He reports he is homosexual/MSM. Patient is an extremely poor historian and had to be redirected several times throughout the conversation. He has word finding difficulty as well as tangential thinking. Patient reports that he is visiting his mom to help her move to [place] where he lives. He was reportedly brought in by his mother as she found him confused and unaware of events. Reportedly when patient arrived to the emergency department he was completely nonverbal but had no neurological deficit and was not found to have any seizures. A stroke alert was called and patient was ruled out to have a stroke. Patient did have a lumbar puncture as well as a sepsis workup was initiated on admission. On 07/15/2017, hemoglobin 8.3, white count 15,000 and platelet count of 357,000, the differential was unremarkable. The following day, 07/16, hemoglobin 7, white count 12,600 and platelets 276,000, again with an unremarkable differential. He was found to be in renal failure with a BUN of 41, creatinine 3.7. Liver function tests are normal. On arrival, he had an elevated temperature of 101.7. Blood cultures are currently growing out gram-negative rods and he is on antibiotics. Chest x-ray on 07/15/2017 showing no acute cardiopulmonary disease. 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 Patient is in the [facility] at the time of my visit with the patient. He's sitting in his bed has no neurological deficit. He's currently not on any pressors and is on room air. He has good urine output. Speech as described earlier. Blood cultures done on admission are positive for ESBL Escherichia coli based on Verigene testing. Urine cultures are positive for gram-negative rods. Patient is currently on Zosyn IV. Clinically he does not appear to be in overt sepsis and appears to have stabilized. Infectious disease is consulted for evaluation and management of gram-negative bacteremia. Overnight events reviewed. No fevers No rash No diarrhea ESBL in blood and urine s.p drainage of renal mass. Drain in place with minimal fluid./ Cultures from renal mass aspiration with ESBL. Antibiotics Ertapenem Lines Line sites with no e.o infection Past Medical History reviewed Allergies: Coded Allergies: No Known Allergies (Verified Allergy, Unknown, 07/15/17) Unable to Assess (Verified Allergy, Unknown, 07/15/17) Objective . Vital Signs Date Time Temp Pulse Resp B/P (MAP) Pulse Ox O2 Delivery O2 Flow Rate FiO2 08/01/17 12:00 98.6 82 18 119/71 (87) 97 08/01/17 09:53 66 08/01/17 08:00 98.1 76 18 124/69 (87) 96 08/01/17 04:00 98.3 74 18 122/78 (93) 97 08/01/17 00:00 98.1 80 19 126/76 (93) 97 07/31/17 20:00 98.9 83 20 140/76 (97) 98 07/31/17 19:59 84 07/31/17 16:00 99.3 86 18 126/72 (90) 96 Imaging Last Impressions Renal Ultrasound 07/16/17 0000 Signed Impressions: Service Date/Time: Sunday, July 16, 2017 17:25 - CONCLUSION: Two right renal cysts. Arron Mccain MD Head CT 07/15/17 0000 Signed Impressions: Service Date/Time: Saturday, July 15, 2017 17:36 - CONCLUSION: 1. 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 2. No acute hemorrhage, acute infarct, mass effect or extra axial fluid collections. Arron Mccain MD Chest X-Ray 07/15/17 0000 Signed Impressions: Service Date/Time: Saturday, July 15, 2017 19:34 - CONCLUSION: No acute disease. Arron Mccain MD Physical Exam GENERAL: This is a well-nourished, well-developed patient, in no apparent distress. SKIN: No rashes, ecchymoses or lesions. Cool and dry. HEAD: Atraumatic. Normocephalic. No temporal or scalp tenderness. EYES: Pupils equal round and reactive. Extraocular motions intact. No scleral icterus. No injection or drainage. ENT: Nose without bleeding, purulent drainage or septal hematoma. Throat without erythema, tonsillar hypertrophy or exudate. Uvula midline. Airway patent. NECK: Trachea midline. Supple, nontender, no meningeal signs. CARDIOVASCULAR: Regular rate and rhythm without murmurs, gallops, or rubs. RESPIRATORY: Clear to auscultation. Breath sounds equal bilaterally. No wheezes , rales, or rhonchi. GASTROINTESTINAL: Abdomen soft, non-tender, nondistended. MUSCULOSKELETAL: Extremities without clubbing, cyanosis, or edema. NEUROLOGICAL: Awake and alert. Speech pressurized. Word finding difficulty. Tangential thinking. No focal neuro deficit. Patient had to be redirected several times. Psych: cooperative somewhat. Grumpy. IV line sites with no e.o infection. Assessment & Plan Remarks Sepsis present on admission likely sources UTI and bacteremia. Gram-negative bacteremia. Preliminary ID as ESBL Escherichia coli. Likely source UTI. ESBL E.coli UTI ESBL E.coli Kidney/Intraabd abscess. Prior history of recurrent UTIs, history of renal stones, history of prostate problems. History of silicon injections into the scrotum in the past. History of GI bleeding in the past. Anemia undergoing workup as well as status post blood transfusion. Acute and cephalic at the present on admission appears to have resolved except for the speech issues. Neurology evaluating the patient. Recommendations Continue Ertapenem IV (ASP criteria: ESBL E.coli bacteremia based on Verigene testing) Follow clinically. Recommend following up with IR about drain removal. Will need espinosa on discharge. d/w pt and Mom (over the phone): she has power and water in her home and they plan on staying in the area till infection resolves. Explained no oral option. Will need repeat imaging to follow up on renal mass. Will need ID follow up with Dr.Reba Patel in 10 days. If repeat imaging shows improvement after 10 days may be able to shorten treatment. If repeat imaging shows persistent mass then open renal biopsy may be needed and further inpt workup. Pt agrees to be compliant and work with us. Time in excess of 40 mins. \d/w case management about DC plan. Gayle Bruno MD Aug 01, 2017 15:46
[2017-08-01] MEDS: TAMSULOSIN HCL 0.4 MG CAP PO SCH (21:48)
[2017-08-02] VITALS (8 sets, daily range): BP systolic 115–134; BP diastolic 53–78; PULSE 75–85; RESP 16–18; TEMP 97.7–99.2; O2SAT 92–98
[2017-08-02] MEDS: ERTAPENEM 1,000 MG/NS 100 ML IV SCH ×2 (06:07)
[2017-08-02] MEDS ORDERED: INVA1INJ IV (09:41)
[2017-08-02] MEDS ORDERED: EPIN1INJ21 IV PUSH (09:41)
[2017-08-02] MEDS ORDERED: SOLU250I IV PUSH (09:41)
[2017-08-02] MEDS ORDERED: EPIN1INJ21 SQ (09:41)
--- NOTE | 2017-08-02 09:49 | HHI.FF ---
cc: Maura Patel MD Infusion Therapy Location of Infusion Therapy: Home Health Care IV Infusion Order Patient Information Appointment Date: Aug 02, 2017 Patient Weight 102.9 kg Diagnosis: Diagnosis ESBL E.coli Perinephric abscess. ESBL E.coli pyelonephritis. Coded Allergies: No Known Allergies (Verified Allergy, Unknown, 07/15/17) Unable to Assess (Verified Allergy, Unknown, 07/15/17) Administer Medication Ertapenem 1 gram IV q 24 hours Start Treatment: Aug 02, 2017 Stop Treatment: Sep 04, 2017 Additional Information Venous access: Other (PICC or midline) Additional Instructions [x] Peripheral flush and dressing changes per protocol [x] Implanted port and central apparatus lineman: * Implanted port: 10 ml Normal Saline followed by 5 ml Heparin 100 units/ml Heparin flush after each use and monthly to maintain. [] May leave port accessed during therapy. [] May leave peripheral site accessed for duration of therapy. [x] If patient has SOB or respiratory distress, check oxygen saturation. If less than 90% or clinical signs of respiratory distress, administer oxygen at 2 L/min. via nasal cannula and notify physician. [x] Anaphylaxis/Reaction orders: * Stop infusion. * Keep IV line open with saline flush. * Notify physician. * Monitor vital signs every 15 minutes until symptoms resolve. * Check Oxygen saturation; Oxygen at 2 L/min. via nasal cannula if less than 90% or clinical signs of respiratory distress. * Administer diphenhydramine (Benadryl) 25 mg IV STAT, (unless patient has received as pre-med). May repeat once, if necessary. * Solu-Cortef 250 mg IVP over 30-60 seconds, use 100 mg vials for each dissolution. * Epinephrine (1mg/1 ml) 0.3 mg subcutaneously or IVP now with any signs of respiratory distress. * Check with physician for new additional pre-med orders if patient is re- challenged or re-treated. [x] May remove PICC line when treatment complete, after confirming with Physician. [x] If the patient is admitted to the hospital, the ED, or transferred via [facility] , complete transfer form including medication reconciliation order sheet. Laboratory Tests Weekly Labs: CBC w/diff, Creatinine, CRP, LFT's (Hepatic function test) Additional Information Please draw weekly labs, fax to numbers below and Call with abnormals, change in clinical condition or problems to: Dr.Reba Patel or or covering ID Physician Follow up appt: Patient to schedule follow up appt with Dr.Reba Patel within 10 days post discharge. Follow up with PCP Follow up with other MDs as planned. Counseling: Counseled about medication side effects Counseled about PICC line care and hand hygiene. Gayle Bruno MD Aug 02, 2017 09:49
[2017-08-02] MEDS: SODIUM CHLORIDE 0.9% 10 ML VIAL IRRIGATION SCH (09:56)
[2017-08-02] MEDS: amLODIPine BESYLATE 5 MG TAB PO SCH (09:56)
[2017-08-02] MEDS: HEPARIN SODIUM - SQ 10,000 UNITS/ML VIAL SQ SCH ×2 (09:56→20:15)
[2017-08-02] MEDS: FAMOTIDINE 20 MG/2 ML VIAL IV PUSH SCH ×2 (09:56→22:03)
[2017-08-02] MEDS: SODIUM CHLORIDE 0.9% FLUSH 10 ML FLUSH SCH ×2 (09:56→22:04)
[2017-08-02] MEDS: DOCUSATE SODIUM 50 MG/SENNA 8.6 MG TAB PO SCH ×2 (09:56→21:00)
--- NOTE | 2017-08-02 13:06 | HHI.FF ---
Face to Face Verification Diagnosis: (1) Confusion (2) UTI (urinary tract infection) (3) Severe sepsis (4) Delirium due to general medical condition (5) Urinary tract infection due to extended-spectrum beta lactamase (ESBL) producing Escherichia coli (6) ESBL E.coli perinephric abscess Physical Therapy Order: Evaluate and Treat Home Health Nursing Order: Medical education Signs/symptoms of disease process Medication education-adverse effect Nursing assessment with vital signs IV medication administration I have seen patient Suresh Vargas on 08/02/17. My clinical findings support the need for the requested home health care services because: Ltd mobility - disease progression I certify that my clinical findings support that this patient is homebound because: Post-op weakness Mary Lou Telles MD Aug 02, 2017 13:06
[2017-08-02] MEDS ORDERED: AMLO5 PO (13:12)
--- NOTE | 2017-08-02 13:13 | HHI.DS ---
Discharge Summary Admission Date Jul 15, 2017 at 19:33 Discharge Date: Aug 03, 2017 Admitting Diagnosis Severe Sepsis, confusion, UTI, r/o meningitis (1) ESBL E.coli perinephric abscess Diagnosis: Principal (2) Urinary tract infection due to extended-spectrum beta lactamase (ESBL) producing Escherichia coli ICD Code: N39.0 - Urinary tract infection, site not specified; A49.8 - Other bacterial infections of unspecified site; Z16.12 - Extended spectrum beta lactamase (ESBL) resistance Diagnosis: Principal Procedures s.p drainage of renal mass Brief History - From Admission 61-year-old gentleman presents for altered mental status. Patient's mom called EMS and the patient was found sitting in the hallway, confused, unaware what was going on. She states that he is visiting from out of town. He got here around noon. She states he acted a little bit tired otherwise well. She then noted that he was overtly confused about an hour or 2 later. EMS states that he is completely nonverbal for them in the truck. He had abnormal movements. No clear seizures. Patient was febrile. Imaging Last Impressions Abdomen CT 07/31/17 1102 Signed Impressions: Service Date/Time: Monday, July 31, 2017 11:36 - CONCLUSION: Stable right posterior perinephric drainage catheter with stable regional small residual soft tissue density. No interval new fluid collections or additional acute animality. Cedrick Silva MD Retroperitoneal Abscess Drainage 07/25/17 1429 Signed Impressions: Service Date/Time: Tuesday, July 25, 2017 14:57 - CONCLUSION: Uncomplicated CT guided drainage. Jake Kimble MD Renal Ultrasound 07/24/17 0000 Signed Impressions: Service Date/Time: Monday, July 24, 2017 11:00 - CONCLUSION: 1. Simple cyst right kidney. 2. Irregular hypoechoic mass posterior to the right kidney measuring 7.7 x 5.6 x 6.5 cm. A solid right renal mass is difficult to exclude. A followup CT examination of the abdomen with and without contrast is recommended to allow for further characterization of the complex appearing right perirenal versus possibly renal exophytic mass as well as a hypo-dense no non-cystic appearing mass at the lower pole of the right kidney noted on CT examination but not visualized sonographically. Right renal malignancy versus a non-renal origin metastatic lesion are differential diagnostic considerations. John Bell MD Abdomen/Pelvis CT 07/20/17 0000 Signed Impressions: Service Date/Time: June 16:49 - CONCLUSION: Complex mass posterior to the right kidney. Differential diagnosis includes abscess or hematoma. There are minimal pleural effusions. Mamadou Reinoso MD ADDENDUM: There is a second small low attenuation lesion in the lower pole of the left kidney measuring approximately 1.6 cm which measures approximately 48 Hounsfield units in density and is an indeterminate finding. Mamadou Reinoso MD Head CT 07/15/17 0000 Signed Impressions: Service Date/Time: Saturday, July 15, 2017 17:36 - CONCLUSION: 1. 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 2. No acute hemorrhage, acute infarct, mass effect or extra axial fluid collections. Arron Mccain MD Chest X-Ray 07/15/17 0000 Signed Impressions: Service Date/Time: Saturday, July 15, 2017 19:34 - CONCLUSION: No acute disease. Arron Mccain MD PE at Discharge GENERAL: 61 yo male, in bed appears in nad. CARDIOVASCULAR: Regular rate and rhythm without murmurs, gallops, or rubs. RESPIRATORY: Breath sounds equal bilaterally. No accessory muscle use. GASTROINTESTINAL: Abdomen soft, non-tender, nondistended. MUSCULOSKELETAL: No cyanosis, or edema. BACK: Drain over right flank, about10 cc of red fluid. No tenderness over right CVA. Espinosa catheter in place Hospital Course Mr. Vargas is a 61-year-old white male with past medical history of rheumatoid arthritis was on methotrexate, osteoarthritis, prostatectomy enlargement reportedly benign. He also reports history of recurrent urinary tract infection is most recent urinary tract infection was several months back. He reports he is homosexual/MSM. Patient is an extremely poor historian and had to be redirected several times throughout the conversation. He has word finding difficulty as well as tangential thinking. Patient reports that he is visiting his mom to help her move to [place] where he lives. He was reportedly brought in by his mother as she found him confused and unaware of events. Reportedly when patient arrived to the emergency department he was completely nonverbal but had no neurological deficit and was not found to have any seizures. A stroke alert was called and patient was ruled out to have a stroke. Patient did have a lumbar puncture as well as a sepsis workup was initiated on admission. On arrival, he had an elevated temperature of 101.7. Blood cultures are currently growing out gram-negative rods and he is on antibiotics. Chest x-ray on 07/15/2017 showing no acute cardiopulmonary disease. 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 Blood cultures done on admission are positive for ESBL Escherichia coli based on Verigene testing. Urine cultures are positive for gram-negative rods. Patient is currently on Zosyn IV. Clinically he does not appear to be in overt sepsis and appears to have stabilized. Infectious disease is consulted for evaluation and management of gram-negative bacteremia ESBL in blood and urine s.p drainage of renal mass. Drain in place with minimal fluid./ Cultures from renal mass aspiration with ESBL. Patient with Sepsis present on admission likely sources UTI and bacteremia, ESBL E.coli Kidney/Intraabd abscess. Prior history of recurrent UTIs, history of renal stones, history of prostate problems. History of silicon injections into the scrotum in the past. History of GI bleeding in the past. Continue Ertapenem IV (ASP criteria: ESBL E.coli bacteremia based on Verigene testing) as per ID recomemndations. Infusion therapy done , home health with pT and nurses as OP. OK to discharge with the drain , discussed with IR drain can be remopved as OP by Nurses at home if < 10 cc output in 24 hrs. If nurses doesn't fee comfortable Jesus from case management has fax number for an appointment wioth IR to remove drain. Will need ID follow up with Dr.Reba Patel in 10 days. If repeat imaging shows improvement after 10 days may be able to shorten treatment. Per urokogy to have espinosa at Dc and f/u as OP Discharged in stable condition. to follow up as OP with PCP and consuiltants. Pt Condition on Discharge: Stable Discharge Disposition: Disch w/ Home Health Serv Discharge Time: > 30 minutes Discharge Instructions DIET: Follow Instructions for: Heart Healthy Diet Activities you can perform: Regular-No Restrictions Follow up Referrals: Infectious Disease - 10 Days @ [facility] with MD Dr.Reba Jorge James PCP Follow-up Urology - 3-5 Days with Ed Lloyd MD New Medications: Epinephrine Inj (Epinephrine Inj) 1 Mg/Ml (1 Ml) Inj 0.3 MG IV PUSH ONCE PRN for ALLERGIC REACTION, #1 VIAL Epinephrine Inj (Epinephrine Inj) 1 Mg/Ml (1 Ml) Inj 0.3 MG SQ ONCE PRN for ALLERGIC REACTION, #1 VIAL Give with any signs of respiratory distress. Ertapenem Inj (Invanz Inj) 1 Gm Addvial 1 GM IV Q24H for Infection for 20 Days, INJECTION 0 Refills ADMINISTER IN 100ML NS Hydrocortisone Inj (Solu-Cortef Inj) 250 Mg/2 Ml Inj 250 MG IV PUSH ONCE PRN for ALLERGIC REACTION, #1 VIAL 0 Refills Give over 30-60 seconds. Amlodipine (Norvasc) 5 Mg Tab 5 MG PO DAILY for Blood Pressure Management for 30 Days, #30 TAB Hydrocodone-Acetaminophen (Hydrocodone-Acetaminophen) 5-325 mg Tab 1 TAB PO Q6H PRN for severe pain/breakthrough pain , #20 TAB Sennosides-Docusate Sodium (Senna Plus 8.6-50 mg) 8.6 Mg-50 Mg Tab 1 TAB PO BID for Constipation, #60 TAB Continued Medications: Diphenoxylate-Atropine (Lomotil) 2.5-0.025 Mg Tab 1 TAB PO Q6H PRN for DIARRHEA, TAB 0 Refills Etodolac (Etodolac) 400 Mg Tab 400 MG PO BID PRN for PAIN SCALE 4 TO 10, TAB 0 Refills Take with food. Lorazepam (Lorazepam) 0.5 Mg Tab 0.5 MG PO DAILY PRN for ANXIETY, TAB 0 Refills Methotrexate (Methotrexate) 2.5 Mg Tab 2.5 MG PO DAILY, TAB 0 Refills Tamsulosin (Flomax) 0.4 Mg Cap 0.4 MG PO HS for Manage Prostate Problems, #30 CAP 0 Refills Discontinued Medications: Lisinopril (Lisinopril) 10 Mg Tab 10 MG PO DAILY, #30 TAB 0 Refills Tramadol (Tramadol) 50 Mg Tab 50 MG PO Q4H PRN for PAIN, TAB 0 Refills Mary Lou Telles MD Aug 02, 2017 13:12
--- NOTE | 2017-08-02 14:46 | HHI.PR ---
Subjective Remarks In the chair. Awaiting IR to remove drain. Doesn't have much pain. Pain is controlled with tylenol. denies fever or chills. No n/v/d/c. eating well. All questions regarding discharge answered. Objective Vitals Vital Signs Date Time Temp Pulse Resp B/P (MAP) Pulse Ox O2 Delivery O2 Flow Rate FiO2 08/02/17 12:00 99.2 85 18 134/77 (96) 97 08/02/17 10:03 75 08/02/17 08:00 97.8 84 18 121/70 (87) 96 08/02/17 04:00 97.7 76 18 116/78 (91) 98 08/02/17 00:00 97.9 78 18 126/76 (93) 98 08/01/17 20:00 98.7 78 16 130/77 (94) 08/01/17 16:01 99.3 83 18 117/72 (87) 94 I/O 08/01/17 08/01/17 08/01/17 08/02/17 08/02/17 08/02/17 07:00 15:00 23:00 07:00 15:00 23:00 Intake Total 480 ml 420 ml 720 ml Output Total 2000 ml 1410 ml 2020 ml Balance -1520 ml -990 ml -1300 ml Intake Oral 480 ml 420 ml 720 ml Output Urine Total 2000 ml 1400 ml 2000 ml Drainage Total 10 ml 20 ml # Bowel Movements 0 0 1 Imaging Last Impressions Abdomen CT 07/31/17 1102 Signed Impressions: Service Date/Time: Monday, July 31, 2017 11:36 - CONCLUSION: Stable right posterior perinephric drainage catheter with stable regional small residual soft tissue density. No interval new fluid collections or additional acute animality. Cedrick Silva MD Retroperitoneal Abscess Drainage 07/25/17 1429 Signed Impressions: Service Date/Time: Tuesday, July 25, 2017 14:57 - CONCLUSION: Uncomplicated CT guided drainage. Jake Kimble MD Renal Ultrasound 07/24/17 0000 Signed Impressions: Service Date/Time: Monday, July 24, 2017 11:00 - CONCLUSION: 1. Simple cyst right kidney. 2. Irregular hypoechoic mass posterior to the right kidney measuring 7.7 x 5.6 x 6.5 cm. A solid right renal mass is difficult to exclude. A followup CT examination of the abdomen with and without contrast is recommended to allow for further characterization of the complex appearing right perirenal versus possibly renal exophytic mass as well as a hypo-dense no non-cystic appearing mass at the lower pole of the right kidney noted on CT examination but not visualized sonographically. Right renal malignancy versus a non-renal origin metastatic lesion are differential diagnostic considerations. John Bell MD Abdomen/Pelvis CT 07/20/17 0000 Signed Impressions: Service Date/Time: June 16:49 - CONCLUSION: Complex mass posterior to the right kidney. Differential diagnosis includes abscess or hematoma. There are minimal pleural effusions. Mamadou Reinoso MD Head CT 07/15/17 0000 Signed Impressions: Service Date/Time: Saturday, July 15, 2017 17:36 - CONCLUSION: 1. 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 2. No acute hemorrhage, acute infarct, mass effect or extra axial fluid collections. Arron Mccain MD Chest X-Ray 07/15/17 0000 Signed Impressions: Service Date/Time: Saturday, July 15, 2017 19:34 - CONCLUSION: No acute disease. Arron Mccain MD Objective Remarks GENERAL: 61 yo male, in bed appears in nad. CARDIOVASCULAR: Regular rate and rhythm without murmurs, gallops, or rubs. RESPIRATORY: Breath sounds equal bilaterally. No accessory muscle use. GASTROINTESTINAL: Abdomen soft, non-tender, nondistended. MUSCULOSKELETAL: No cyanosis, or edema. BACK: Drain over right flank, about10 cc of red fluid. No tenderness over right CVA. Crocker catheter in place A/P Assessment and Plan Encephalopathy: Likely due to metabolic encephalopathy. Now resolved. Severe sepsis due to UTI/bacteremia ESBL positive - sepsis component resolved, hemodynamically stable afebrile Right perinephric abscess - CT head negative, LP negative. Urine culture ESBL positive. Blood culture I/4 ESBL positive. - ID consulted and following patient. - Meropenem discontinued 07/18. Patient now on ertapenem. Sepsis component resolved. - CT abdomen and pelvis showed a retroperitoneal abscess as described above. Dr. Lloyd reevaluated patient and recommended, and several thick management with antibiotics and supportive care, however repeat ultrasound showed a 7.7 cm 5.6 cm 6.5 cm irregular hypoechoic mass was due to the right kidney status post CT-guided drainage by IR. -Wound culture from retroperitoneal collection is growing Escherichia coli ESBL positive. 07/28 CT abdomen and pelvis ordered by interventional radiology. CT reviewed and shows nearly complete resolution of perinephric abscess Arthritis - NSAIDs and methotrexate held due to SIRS and acute kidney injury. -Encourage ambulation. - Seems to be stable. Acute kidney injury -Patient evaluated by urology. UTI likely related to bladder outlet obstruction. - Avoid nephrotoxin. Monitor creatinine and urine output - Renal ultrasound shows 2 renal cysts. 07/28 urology recommended not removing the Crocker catheter to gravity drainage until urologic workup is completed. Hypertension - Lisinopril held due to acute kidney injury. - Continue amlodipine 5 mg by mouth daily. - Patient's blood pressure is stable. - Continue hydralazine as needed to keep systolic blood pressure less than 160. BPH - Flomax Anemia, normocytic normochromic -Per tongue presser anemia most likely secondary to infection. at this time will only f/u prn. - hemoglobin stable. DVT GI prophylaxis - Teds SCDs. Discharge Planning Not ready for DC difficult DC 2/ [facility]. Needs ID clearance - currently on IV antibiotics. Also still has drain. Per ID note concern for compliance patient might be a candidate for inpatient IV abx administration , ID evaluated patient, patient can be discharge on IV antibiotics home with home health. Infusion done per ID. Case management working on DC plan. Also IR will come to remove drain. Mary Lou Telles MD Aug 02, 2017 14:46
[2017-08-02] MEDS: TAMSULOSIN HCL 0.4 MG CAP PO SCH (22:04)
[2017-08-03 03:40] VITALS: BP 122/69; PULSE 85; RESP 16; TEMP 98.3; O2SAT 99
[2017-08-03] MEDS: ERTAPENEM 1,000 MG/NS 100 ML IV SCH ×2 (05:23)
[2017-08-03] MEDS: ACETAMINOPHEN/HYDROcodone 325 MG/5 MG TAB PO PRN (05:48)
[2017-08-03 08:00] VITALS: BP 119/73; PULSE 75; PULSE 78; RESP 16; TEMP 99; O2SAT 95
[2017-08-03] MEDS: HEPARIN SODIUM - SQ 10,000 UNITS/ML VIAL SQ SCH (08:15)
[2017-08-03] MEDS: DOCUSATE SODIUM 50 MG/SENNA 8.6 MG TAB PO SCH (09:00)
[2017-08-03] MEDS ORDERED: HYDR-3516 PO (09:13)
[2017-08-03] MEDS ORDERED: SENN1TAB PO (09:13)
--- NOTE | 2017-08-03 09:27 | HHI.PR ---
Subjective Remarks In the chair says he has pain at the drain site especially with movement, discussed with IR nurse evaluated patient. Patient with 15 cc drain output and will not remove yet the drain. Patient has no fever or chills.No n/v/d/c. No chest pain or sob. No abdominal pain. Objective Vitals Vital Signs Date Time Temp Pulse Resp B/P (MAP) Pulse Ox O2 Delivery O2 Flow Rate FiO2 08/03/17 03:40 98.3 85 16 122/69 (86) 99 08/02/17 23:08 99.1 84 16 126/53 (77) 92 08/02/17 19:58 99.1 82 16 115/67 (83) 95 08/02/17 16:00 98.9 82 18 122/78 (93) 97 08/02/17 12:00 99.2 85 18 134/77 (96) 97 08/02/17 10:03 75 I/O 08/02/17 08/02/17 08/02/17 08/03/17 08/03/17 08/03/17 07:00 15:00 23:00 07:00 15:00 23:00 Intake Total 720 ml 720 ml 340 ml Output Total 2020 ml 1410 ml 1080 ml Balance -1300 ml -690 ml -740 ml Intake Oral 720 ml 720 ml 240 ml IV Total 100 ml Output Urine Total 2000 ml 1400 ml 1075 ml Drainage Total 20 ml 10 ml 5 ml # Bowel Movements 1 0 Imaging Last Impressions Abdomen CT 07/31/17 1102 Signed Impressions: Service Date/Time: Monday, July 31, 2017 11:36 - CONCLUSION: Stable right posterior perinephric drainage catheter with stable regional small residual soft tissue density. No interval new fluid collections or additional acute animality. Cedrick Silva MD Retroperitoneal Abscess Drainage 07/25/17 1429 Signed Impressions: Service Date/Time: Tuesday, July 25, 2017 14:57 - CONCLUSION: Uncomplicated CT guided drainage. Jake Kimble MD Renal Ultrasound 07/24/17 0000 Signed Impressions: Service Date/Time: Monday, July 24, 2017 11:00 - CONCLUSION: 1. Simple cyst right kidney. 2. Irregular hypoechoic mass posterior to the right kidney measuring 7.7 x 5.6 x 6.5 cm. A solid right renal mass is difficult to exclude. A followup CT examination of the abdomen with and without contrast is recommended to allow for further characterization of the complex appearing right perirenal versus possibly renal exophytic mass as well as a hypo-dense no non-cystic appearing mass at the lower pole of the right kidney noted on CT examination but not visualized sonographically. Right renal malignancy versus a non-renal origin metastatic lesion are differential diagnostic considerations. John Bell MD Abdomen/Pelvis CT 07/20/17 0000 Signed Impressions: Service Date/Time: June 16:49 - CONCLUSION: Complex mass posterior to the right kidney. Differential diagnosis includes abscess or hematoma. There are minimal pleural effusions. Mamadou Reinoso MD ADDENDUM: There is a second small low attenuation lesion in the lower pole of the left kidney measuring approximately 1.6 cm which measures approximately 48 Hounsfield units in density and is an indeterminate finding. Mamadou Reinoso MD Head CT 07/15/17 0000 Signed Impressions: Service Date/Time: Saturday, July 15, 2017 17:36 - CONCLUSION: 1. 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 2. No acute hemorrhage, acute infarct, mass effect or extra axial fluid collections. Arron Mccain MD Chest X-Ray 07/15/17 0000 Signed Impressions: Service Date/Time: Saturday, July 15, 2017 19:34 - CONCLUSION: No acute disease. Arron Mccain MD Objective Remarks GENERAL: 61 yo male, in bed appears in nad. CARDIOVASCULAR: Regular rate and rhythm without murmurs, gallops, or rubs. RESPIRATORY: Breath sounds equal bilaterally. No accessory muscle use. GASTROINTESTINAL: Abdomen soft, non-tender, nondistended. MUSCULOSKELETAL: No cyanosis, or edema. BACK: Drain over right flank, about10 cc of red fluid. No tenderness over right CVA. Crocker catheter in place A/P Assessment and Plan Encephalopathy: Likely due to metabolic encephalopathy. Now resolved. Severe sepsis due to UTI/bacteremia ESBL positive - sepsis component resolved, hemodynamically stable afebrile Right perinephric abscess - CT head negative, LP negative. Urine culture ESBL positive. Blood culture I/4 ESBL positive. - ID consulted and following patient. - Meropenem discontinued 07/18. Patient now on ertapenem. Sepsis component resolved. - CT abdomen and pelvis showed a retroperitoneal abscess as described above. Dr. Lloyd reevaluated patient and recommended, and several thick management with antibiotics and supportive care, however repeat ultrasound showed a 7.7 cm 5.6 cm 6.5 cm irregular hypoechoic mass was due to the right kidney status post CT-guided drainage by IR. -Wound culture from retroperitoneal collection is growing Escherichia coli ESBL positive. 07/28 CT abdomen and pelvis ordered by interventional radiology. CT reviewed and shows nearly complete resolution of perinephric abscess Arthritis - NSAIDs and methotrexate held due to SIRS and acute kidney injury. -Encourage ambulation. - Seems to be stable. Acute kidney injury -Patient evaluated by urology. UTI likely related to bladder outlet obstruction. - Avoid nephrotoxin. Monitor creatinine and urine output - Renal ultrasound shows 2 renal cysts. 07/28 urology recommended not removing the Crocker catheter to gravity drainage until urologic workup is completed. Hypertension - Lisinopril held due to acute kidney injury. - Continue amlodipine 5 mg by mouth daily. - Patient's blood pressure is stable. - Continue hydralazine as needed to keep systolic blood pressure less than 160. BPH - Flomax Anemia, normocytic normochromic -Per sensory scientist anemia most likely secondary to infection. at this time will only f/u prn. - hemoglobin stable. DVT GI prophylaxis - Teds SCDs. Discharge Planning Not ready for DC difficult DC 2/2 [facility]. Needs ID clearance - currently on IV antibiotics. Also still has drain. Per ID note concern for compliance patient might be a candidate for inpatient IV abx administration , ID evaluated patient, patient can be discharge on IV antibiotics home with home health. Infusion done per ID. Case management working on DC plan. Also IR will come to remove drain when less drainage, monitor output for now. Patient to be discharged after drain is removed. Mary Lou Telles MD Aug 03, 2017 09:27
--- NOTE | 2017-08-03 10:03 | PD.RAD ---
Radiology Note Hx of E coli perinephric abscess s/p perc. drainage. Currently asymptomatic with very small residual likely inflammatory tissue surrounding the catheter. However, has 30ml and 15ml output for past 2 days. Ideally, would prefer <10ml output prior to DC drain particularly given the E coli cultures. Suspect he will be there in a day or two. He may be discharged with drain in place with follow up for drain removal when outputs decrease. Cedrick Silva MD Aug 03, 2017 10:03
[2017-08-03] MEDS: amLODIPine BESYLATE 5 MG TAB PO SCH (11:06)
[2017-08-03] MEDS: FAMOTIDINE 20 MG/2 ML VIAL IV PUSH SCH (11:06)
[2017-08-03] MEDS: SODIUM CHLORIDE 0.9% FLUSH 10 ML FLUSH SCH (11:08)
[2017-08-03] MEDS: SODIUM CHLORIDE 0.9% 10 ML VIAL IRRIGATION SCH (11:09)
== END 2017-08-03 12:45 | disposition home health service (06) | DRG 871 ==
LOC: NEPC 17:24 → NEDA 19:33 → N03B 22:26 → N03A 23:02 → N04B 07-17 19:23
PROVIDERS: ADMIT Hospitalist; ATTEND Hospitalist
PROC: 0T9B70Z Drainage of Bladder with Drainage Device, Via Natural or Artificial Opening (ICD-10-PCS; principal; 2017-07-15)
PROC: 009U3ZX Drainage of Spinal Canal, Percutaneous Approach, Diagnostic (ICD-10-PCS; 2017-07-15)
PROC: 3E0F7GC Introduction of Other Therapeutic Substance into Respiratory Tract, Via Natural or Artificial Opening (ICD-10-PCS; 2017-07-15)
PROC: 30233N1 Transfusion of Nonautologous Red Blood Cells into Peripheral Vein, Percutaneous Approach (ICD-10-PCS; 2017-07-16)
PROC: 0T903ZX Drainage of Right Kidney, Percutaneous Approach, Diagnostic (ICD-10-PCS; 2017-07-25)
DX: A41.9 Sepsis, unspecified organism (principal); G93.41 Metabolic encephalopathy; N15.1 Renal and perinephric abscess; N17.9 Acute kidney failure, unspecified; N39.0 Urinary tract infection, site not specified; N13.8 Other obstructive and reflux uropathy; I10 Essential (primary) hypertension; M19.90 Unspecified osteoarthritis, unspecified site; N40.1 Benign prostatic hyperplasia with lower urinary tract symptoms; M06.9 Rheumatoid arthritis, unspecified; F32.9 Major depressive disorder, single episode, unspecified; R35.1 Nocturia; Z87.440 Personal history of urinary (tract) infections; Z86.73 Personal history of transient ischemic attack (TIA), and cerebral infarction without residual deficits; Z79.899 Other long term (current) drug therapy; Z87.442 Personal history of urinary calculi; F41.9 Anxiety disorder, unspecified; Z78.1 Physical restraint status; D50.9 Iron deficiency anemia, unspecified; N28.1 Cyst of kidney, acquired; B96.20 Unspecified Escherichia coli [E. coli] as the cause of diseases classified elsewhere; Z16.12 Extended spectrum beta lactamase (ESBL) resistance
CPT/HCPCS: 36430; 36569; 49406; 62270; 70450; 71020; 74150; 74177; 76775; 76937; 80048; 80053; 80074; 80307; 81001; 82272; 82435; 82550; 82565; 82607; 82728; 82746; 82945; 82947; 83010; 83540; 83550; 83605; 83615; 83735; 84100; 84132; 84153; 84157; 84295; 84484; 84520; 85007; 85014; 85018; 85025; 85027; 85044; 85384; 85610; 85652; 85730; 86038; 86140; 86403; 86430; 86592; 86703; 86850; 86880; 86900; 86901; 86920; 87015; 87040; 87070; 87077; 87086; 87102; 87116; 87186; 87205; 87206; 87529; 87641; 89051; 93005; 96365; C1729; C1769; J0133; J0290; J0713; J1100; J1335; J1644; J2060; J2185; J2250; J2405; J3010; J3370; J7030; J7040; J7050; P9016; Q9967